=== PATIENT | male | born 1935 | race Caucasian/White ===

== ENCOUNTER 2019-04-22 10:24 | Emergency (ER) | payer MEDICARE, SELFPAY ==
[2019-04-22 10:32] VITALS: BP 192/104; PULSE 100; RESP 13; TEMP 36.2; O2SAT 96
--- NOTE | 2019-04-22 10:43 | PC.NURSE ---
Patient reports gradual onset of double vision yesterday. Vision is fine if he closes one eye, but double with both eyes open. Patient denies headache, denies any other changes. Denies numbness or tingling
--- NOTE | 2019-04-22 10:45 | ED_ITS ---
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 He says his if he closes 1 eye he sees normally it does not matter which eye he closes. He has no blackening or loss of vision. He has no numbness tingling or weakness. No speech difficulty. He denies chest pain her palpitations. No prior history of CVA or TIA. But is worried that he might be having a stroke. He has no dizziness lightheadedness or syncope. Review of Systems Review of Systems ROS Unobtainable: All systems reviewed & are unremarkable except as noted in HPI and below Constitutional Constitutional: Denies chills, Denies fever(s), Denies lethargy and Denies weakness Eyes Eyes: Denies blind spots, Denies blurry vision, Denies exophthalmos, Denies change in vision and Reports diplopia ENT Ears, Nose, Mouth, and Throat: Denies change in voice, Denies vertigo, Denies dizziness, Denies neck pain and Denies sore throat Cardiovascular Cardiovascular: Denies dyspnea and Denies dyspnea on exertion Respiratory Respiratory: Denies cough, Denies dyspnea, Denies dyspnea on exertion and Denies wheezing Gastrointestinal Gastrointestinal: Denies abdominal pain, Denies change in bowel habits, Denies diarrhea, Denies nausea and Denies vomiting Genitourinary Genitourinary: Denies hematuria, Denies flank pain, Denies urinary incontinence and Denies urinary urgency Musculoskeletal Musculoskeletal: Denies abnormal gait and Denies neck pain Integumentary/Breasts Skin/Breast: Denies pruritus, Denies erythema, Denies rash and Denies wounds Neurologic Neurologic: Denies abnormal gait, Denies confusion, Denies vertigo, Denies dizziness, Denies lack of coordination, Denies focal weakness and Denies weaknes s Psychiatric Psychiatric: Denies confusion Allergic/Immunologic Allergic/Immunologic: Denies wheezing Patient History Medical History Hyperlipidemia (Acute) Social History Smoking Status: Never smoker alcohol intake frequency: 3 or more drinks per day Exam Initial Vital Signs Initial Vital Signs: Vital Signs Temperature 97.2 F L 04/22/19 10:32 Pulse Rate 100 H 04/22/19 10:32 Respiratory Rate 13 04/22/19 10:32 Blood Pressure 192/104 H 04/22/19 10:32 Pulse Oximetry 96 04/22/19 10:32 GENERAL: Alert well-appearing elderly male HEENT: Head atraumatic,EOMI, pupils reactive, face symmetric, moist mucous membranes EYES: EOMI, vision clears when 1 eye is covered. no loss of peripheral vision it is equal on both sides CARDIOVASCULAR: Regular rate and rhythm without murmurs, rubs or gallops. RESPIRATORY: Breath sounds equal bilaterally, no wheezes rales or rhonchi. ABDOMEN: Soft, nontender. Normoactive bowel sounds all 4 quadrants. No guardi ng or rebound. EXTREMITIES: Normal range of motion, no clubbing or edema. Neurovascularly intact NEUROLOGICAL: Alert and oriented x4.Normal gait and speech. Cranial nerves II through XII grossly intact. Good [id number], good [id number], strength equal bilaterally, no dysarthria or aphasia, sensation in tact to soft touch bilaterally, no visual changes, no facial droop SKIN: Warm, dry, no laceration, no petechiae, no rashes or lesions. Scores NIH Stroke Scale Level of Conciousness: Alert, keenly responsive Ask month/age: Answers both questions correctly. Open/close eyes, close hand: Performs both tasks correctly Best gaze horizontal: Normal Visual paulino: No visual loss Facial palsy: Normal symetrical movement Left arm drift: No drift for full 10 sec Right arm drift: No drift for full 10 sec Left leg drift: No drift for full 10 sec Right leg drift: No drift for full 10 sec Limb ataxia: Absent Sensory on face/arms/legs: Normal, no sensory loss Best language: No aphasia, normal Dysarthria: Normal Extinction or inattention: No abnormality Total NIH Stroke scale score: 0 Course Orders Ordered: ED Orders 04/22/19 10:40 Complete Blood Count AUTO DIFF Stat Comprehensive Metabolic Panel Stat Partial Thromboplastin Time Stat Prothrombin Time INR Stat Troponin I Stat 04/22/19 11:09 CT head/brain wo con Stat Urine Drug Screen, Rapid Stat EKG-12 Lead Stat Discontinued Medications Sodium Chloride (Normal Saline 0.9%) 1,000 mls @ 1,000 mls/hr IV BOLUS ONE Stop: 04/22/19 12:08 Last Infusion: 04/22/19 12:56 Dose: 0 mls/hr Documented by: Admin: 04/22/19 12:00 Dose: 1,000 mls/hr Documented by: RA Vital Signs Vital signs: Vital Signs - 8 hr 04/22/19 10:32 04/22/19 11:58 04/22/19 12:51 Temperature 97.2 F L Pulse Rate 100 H 82 91 H Respiratory Rate 13 Blood Pressure 192/104 H Blood Pressure [Right Arm] 157/90 H 171/93 H Pulse Oximetry 96 97 98 MDM - Eye Problem Lab Data Attestation: I reviewed the patient's lab results. Result diagrams: 04/22/19 10:40 04/22/19 10:40 Labs: Lab Results 04/22/19 04/22/19 04/22/19 Range/Units 10:40 10:40 10:40 WBC 6.2 (4.5-11.0) X10^3/uL RBC 4.33 L (4.5-5.9) X10^6/uL Hgb 14.6 (13.5-17.5) g/dL Hct 43.2 (41-53) % MCV 99.8 (80-100) fL MCH 33.8 (26-34) PG MCHC 33.9 (30-36) % RDW 13.0 (11.6-14.8) % Plt Count 206 (150-400) X10^3/uL Neut % (Auto) 63.8 (50-75) % Lymph % (Auto) 18.2 L (25-40) % [place] % (Auto) 8.4 (3-14) % Eos % (Auto) 6.4 H (2-4) % Baso % (Auto) 3.2 H (0-2) % Neut # (Auto) 4000 (6878-8979) /uL Lymph # (Auto) 1100 (4224-8747) /uL [place] # (Auto) 500 (0-900) /uL Eos # (Auto) 400 (0-450) /uL Baso # (Auto) 200 H (0-100) /uL PT 11.7 (10.1-12.7) SECONDS INR 1.0 (0.9-1.3) APTT 30 (26.4-36.2) SECONDS Sodium 132 L (137-145) mmol/L Potassium 4.1 (3.4-5.1) mmol/L Chloride 99 (98-107) mmol/L Carbon Dioxide 25 (22-32) mmol/L BUN 13 (9-20) mg/dL Creatinine 0.80 (0.66-1.25) mg/dL Estimated GFR > 60.0 (>60) mL/min BUN/Creatinine Ratio 16.3 (6-22) Glucose 157 H (80-110) mg/dL Calcium 9.0 (8.4-10.2) mg/dL Total Bilirubin 0.8 (0.2-1.3) mg/dL AST 41 (17-59) IU/L ALT 22 (<50) IU/L Alkaline Phosphatase 57 (38-126) U/L Troponin I < 0.012 (0.01-0.034) ng/mL Total Protein 7.6 (6.3-8.2) g/dL Albumin 4.4 (3.5-5.0) g/dL Globulin 3.2 (1.7-4.1) g/dL Albumin/Globulin Ratio 1.4 (1.0-2.8) Urine Dip Bedside Urine Glucose Negative Bedside Urine Bilirubin - Negative Bedside Urine Ketone - Negative Urine Specific [place] 1.010 Bedside Urine Occult Blood - Negative Bedside Urine pH 6.5 Bedside Urine Protein +/- 15 Bedside Urine Urobilinogen - Negative Bedside Urine Nitrite - Negative Bedside Urine Leukocytes - Negative Esterase Imaging Data CT scan - head: Radiologist's impression: PROCEDURE: CT HEAD/BRAIN WO CON INDICATIONS: double vision TECHNIQUE: Noncontrast 4.5 mm thick angled axial sections acquired from the foramen magnum to the vertex, with coronal and sagittal reformats. For radiation dose reduction, the following was used: automated exposure control, adjustment of mA and/or kV according to patient size. COMPARISON: None. FINDINGS: Image quality: Excellent. CSF spaces: Basal cisterns are patent. No extra-axial fluid collections. The ventricles are symmetric in size and shape. Brain: No intracranial bleeds or masses. There is cerebral volume loss for age, with resultant ventricular and sulcal prominence. There are periventricular and deep white matter chronic small vessel ischemic changes. There is intracranial internal carotid artery atherosclerosis. Skull and face: Calvarium and visualized facial bones appear intact, without suspicious lesions. Sinuses: There is a mild mucous retention cyst seen involving the lateral right frontal sinus. Mild mucosal thickening is seen within the ethmoid air cells. No abnormal fluid is seen within the mastoid air cells. IMPRESSION: No imaging explanation is found for this patient's presenting symptoms. If it would be helpful for clinical management decision making, please consider a dedicated orbits protocol MRI (without and with contrast) for further evaluation (assuming that there is no contraindication). Note is made of age-appropriate brain parenchymal volume loss and chronic small vessel ischemic changes. Dictated by: Flaco Monk M.D. on 04/22/2019 at 11:00 ECG Data Attestation: I personally reviewed and interpreted this ECG as follows: Prior ECG tracings: available for review Interpretation: Normal sinus rhythm a rate 104 for interval 70 Q DC [address] elevations depressions T-wave inversion noted in lead 3 only no prior EKGs to compare. [facility] Narrative Medical decision making narrative: The patient's signs and symptoms are not consistent with CVA or TIA. He is certainly out of the window for tPA, symptoms started yesterday. 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 At this time I recommend he follow up there for the double vision. He has no peripheral vision loss no signs of retinal detachment. No cranial nerve deficit that is appreci ated. I discussed all findings with the patient and , Education has been performed regarding treatment plan, diagnosis, warning signs and symptoms and all concerns have been addressed. Verbally agree with and understood all of the above. Discharge Plan Departure Patient Disposition: Home Clinical Impression: Double vision Discharge Date/Time: 04/22/19 13:13 Instructions: DI for Double Vision Activity Restrictions/Additional Instructions: *You have been diagnosed with double vision *What to do: At this time no signs or symptoms of stroke is blood work and head CT are reassuring. However I strongly recommend that you follow up with your pipeliner call 1st thing Wednesday morning *Continue to take medications as directed Aspirin 81 mg once a day *Follow up with your primary care provider in 2-3 days *Return to ER if you should have weakness, facial drooping, difficulty speaking, confusion, blackening or loss of vision or any new, worsening or concerning symptoms
--- NOTE | 2019-04-22 11:09 | DI.CT.S_ITS ---
PROCEDURE: CT HEAD/BRAIN WO CON INDICATIONS: double vision TECHNIQUE: Noncontrast 4.5 mm thick angled axial sections acquired from the foramen magnum to the vertex, with coronal and sagittal reformats. For radiation dose reduction, the following was used: automated exposure control, adjustment of mA and/or kV according to patient size. COMPARISON: None. FINDINGS: Image quality: Excellent. CSF spaces: Basal cisterns are patent. No extra-axial fluid collections. The ventricles are symmetric in size and shape. Brain: No intracranial bleeds or masses. There is cerebral volume loss for age, with resultant ventricular and sulcal prominence. There are periventricular and deep white matter chronic small vessel ischemic changes. There is intracranial internal carotid artery atherosclerosis. Skull and face: Calvarium and visualized facial bones appear intact, without suspicious lesions. Sinuses: There is a mild mucous retention cyst seen involving the lateral right frontal sinus. Mild mucosal thickening is seen within the ethmoid air cells. No abnormal fluid is seen within the mastoid air cells. IMPRESSION: No imaging explanation is found for this patient's presenting symptoms. If it would be helpful for clinical management decision making, please consider a dedicated orbits protocol MRI (without and with contrast) for further evaluation (assuming that there is no contraindication). Note is made of age-appropriate brain parenchymal volume loss and chronic small vessel ischemic changes. Dictated by: Flaco Monk M.D. on 04/22/2019 at 11:00 Approved by: Flaco Monk M.D. on 04/22/2019 at 11:02
[2019-04-22 11:22] LABS: Prothrombin Time 11.7 SECONDS (10.1-12.7)
[2019-04-22 11:25] LABS: PTT Partial Thromboplastin Tim 30 SECONDS (26.4-36.2)
[2019-04-22 11:26] LABS: Alanine Aminotransferase 22 IU/L (<50); Albumin 4.4 g/dL (3.5-5.0); Albumin Globulin Ratio 1.4 (1.0-2.8); Alkaline Phosphatase 57 U/L (38-126); Aspartate Aminotransferase 41 IU/L (17-59); BUN Creatinine Ratio 16.3 (6-22); Bilirubin Total 0.8 mg/dL (0.2-1.3); Blood Urea Nitrogen 13 mg/dL (9-20); Carbon Dioxide 25 mmol/L (22-32); Chloride 99 mmol/L (98-107); Estimated Glomerular Filt Rate > 60.0 mL/min (>60); Globulin 3.2 g/dL (1.7-4.1); Glucose 157 mg/dL (80-110); HEMOLYSIS 26 (0-50); Potassium 4.1 mmol/L (3.4-5.1); Sodium 132 mmol/L (137-145); Total Protein 7.6 g/dL (6.3-8.2)
[2019-04-22 11:36] LABS: Add Manual Diff / Slide Review NO; Basophils Absolute Auto 200 /uL (0-100); Basophils Percent Auto 3.2 % (0-2); Eosinophils Absolute Auto 400 /uL (0-450); Eosinophils Percent Auto 6.4 % (2-4); Hematocrit 43.2 % (41-53); Hemoglobin 14.6 g/dL (13.5-17.5); Lymphocytes Absolute Auto 1100 /uL (1100-4500); Lymphocytes Percent Auto 18.2 % (25-40); Mean Corpuscular HGB Conc 33.9 % (30-36); Mean Corpuscular Hemoglobin 33.8 PG (26-34); Mean Corpuscular Volume 99.8 fL (80-100); Monocytes Absolute Auto 500 /uL (0-900); Monocytes Percent Auto 8.4 % (3-14); Neutrophils Absolute Auto 4000 /uL (1500-7000); Neutrophils Percent Auto 63.8 % (50-75); Platelet Count 206 X10^3/uL (150-400); Red Blood Cell Count 4.33 X10^6/uL (4.5-5.9); White Blood Cell Count 6.2 X10^3/uL (4.5-11.0)
[2019-04-22 11:37] LABS: Troponin I < 0.012 ng/mL (0.01-0.034)
[2019-04-22 11:58] VITALS: BP 157/90; PULSE 82; O2SAT 97
[2019-04-22] MEDS: SODIUM CHLORIDE 0.9% 1,000 ML 1000 ML IV (12:00)
[2019-04-22 12:51] VITALS: BP 171/93; PULSE 91; O2SAT 98
== END 2019-04-22 13:13 | disposition home or self-care (01) ==
PROVIDERS: Emergency Provider Emergency Medicine
DX: H53.2 Diplopia (principal); E78.5 Hyperlipidemia, unspecified
CPT/HCPCS: 36415; 70450; 80053; 81003; 84484; 85025; 85610; 85730; 93005; 99283; 99285

== ENCOUNTER 2022-06-27 22:40 | Inpatient (IN) | payer MEDICARE, SELFPAY ==
[2022-06-27 22:57] VITALS: BP 117/78; PULSE 78; RESP 22; TEMP 36.4; O2SAT 97; BMI 25.8
--- NOTE | 2022-06-27 22:57 | DI.RAD.S_ITS ---
PROCEDURE: XR CHEST 1V INDICATIONS: dyspnea TECHNIQUE: One view of the chest was acquired. COMPARISON: None. FINDINGS: Surgical changes and devices: None. Lungs and pleura: Lungs are abnormal with a chronic appearing interstitial prominence pattern with superimposed alveolar consolidation at the left mid and lower lung. No pleural effusions or pneumothorax. Mediastinum: Mediastinal contours appear normal. Heart size is normal. Bones and chest wall: No suspicious bony lesions. Overlying soft tissues appear unremarkable. IMPRESSION: Left mid and lower lung pneumonia pattern, superimposed upon a chronic mild interstitial prominence that might reflect prior smoking history. Dictated by: Omero Marie M.D. on 06/27/2022 at 23:12 Approved by: Omero Marie M.D. on 06/27/2022 at 23:13
[2022-06-27 23:04] LABS: Add Manual Diff / Slide Review NO; Basophils Absolute Auto 100 /uL (0-100); Basophils Percent Auto 1.3 % (0-2); Eosinophils Absolute Auto 100 /uL (0-450); Hemoglobin 14.6 g/dL (13.5-17.5); Lymphocytes Absolute Auto 900 /uL (1100-4500); Lymphocytes Percent Auto 11.3 % (25-40); Mean Corpuscular HGB Conc 34.8 % (30-36); Mean Corpuscular Hemoglobin 35.8 PG (26-34); Monocytes Absolute Auto 1100 /uL (0-900); Monocytes Percent Auto 13.7 % (3-14); Neutrophils Absolute Auto 5700 /uL (1500-7000); Neutrophils Percent Auto 72.7 % (50-75); Platelet Count 152 X10^3/uL (150-400); Red Blood Cell Count 4.08 X10^6/uL (4.5-5.9); Red Cell Distribution Width 14.3 % (11.6-14.8); White Blood Cell Count 7.9 X10^3/uL (4.5-11.0)
--- NOTE | 2022-06-27 23:43 | ED_ITS ---
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 Boyle # (Auto) (0-900) /uL Eos # (Auto) (0-450) /uL Baso # (Auto) (0-100) /uL Sodium 119 L* (137-145) mmol/L Potassium 4.5 (3.4-5.1) mmol/L Chloride 80 L (98-107) mmol/L Carbon Dioxide 27 (22-32) mmol/L BUN 37 H (9-20) mg/dL Creatinine 1.43 H (0.66-1.25) mg/dL Estimated GFR 47 L (>60) mL/min BUN/Creatinine Ratio 25.9 H (6-22) Glucose 84 (80-110) mg/dL Calcium 7.9 L (8.4-10.2) mg/dL Total Bilirubin (0.2-1.3) mg/dL AST (17-59) IU/L ALT (<50) IU/L Alkaline Phosphatase (38-126) U/L Troponin I (0.01-0.034) ng/mL NT-Pro-B Natriuret Pep (<450) pg/mL Total Protein (6.3-8.2) g/dL Albumin (3.5-5.0) g/dL Globulin (1.7-4.1) g/dL Albumin/Globulin Ratio (1.0-2.8) TSH (0.47-4.68) uIU/mL Thyroxine (T4) (5.5-11.0) ug/dL Ur Random Sodium (30-90) mmol/L Urine Creatinine mg/dL SARS-CoV-2 (PCR) (Negative) Influenza A (RT-PCR) (NEGATIVE) Influenza B (RT-PCR) (NEGATIVE) RSV (PCR) (Negative) Urine Dip Bedside Urine Glucose Negative Bedside Urine Bilirubin - Negative Bedside Urine Ketone - Negative Urine Specific Pfeifer 1.020 Bedside Urine Occult Blood - Negative Bedside Urine pH 6.0 Bedside Urine Protein - Negative Bedside Urine Urobilinogen - Negative Bedside Urine Nitrite - Negative Bedside Urine Leukocytes - Negative Esterase Point of care testing: Urine Dip Bedside Urine Glucose Negative Bedside Urine Bilirubin - Negative Bedside Urine Ketone - Negative Urine Specific Pfeifer 1.020 Bedside Urine Occult Blood - Negative Bedside Urine pH 6.0 Bedside Urine Protein - Negative Bedside Urine Urobilinogen - Negative Bedside Urine Nitrite - Negative Bedside Urine Leukocytes - Negative Esterase Imaging Data MRCP: Radiologist's Impression: [address] [address] Magnetic Resonance Report Signed Patient: Michael Woodson MR#: [id number] : 1935 Acct:[id number] Age/Sex: 87 / M Date of Service: 06/28/22 Loc: ED Accession Number: [id number] ?? Procedure: MR abdomen wo/w con Ordering Provider: Joanna Ceja MD PROCEDURE:? MR ABDOMEN WO/W CON ? INDICATIONS:? elevated LFTs.? ? CBD stone ? TECHNIQUE:? Coronal HASTE, axial 2D FLASH in- and [id number]; axial breath-hold T2 FSE.? Dynamic axial VIBE during the administration of contrast; post-contrast coronal VIBE or 2D FLASH with fat saturation from the hepatic dome to the iliac crests.? Optional diffusion weighted imaging and ADC may be performed.? ? COMPARISON:? [facility], CT, CT ABDOMEN PELVIS W CON, 06/28/2022, 0:55. ? FINDINGS:? Image quality:? Study is significantly limited by motion artifact.? Patient was unable to suspend respirations ? Lung bases:? Small right pleural effusion. ? Solid organs:? Gallbladder is grossly unremarkable without filling defects.? Limited sequences of the common bile duct are also likewise unremarkable without distension or filling defects.? There is a suggestion pericholecystic fluid.? Liver is normal in size and enhancement.? Biliary system is non dilated.? Pancreas is normal in morphology.? Spleen is normal in size and enhancement.? No adrenal nodules.? Both kidneys demonstrate normal size and enhancement, without hydronephrosis.? ? Nodes and vessels:? No retroperitoneal or mesenteric adenopathy by size criteria.? Aorta and inferior vena cava are normal in size.? ? Bowel and peritoneum:? Unenhanced bowel loops are normal in caliber.? No free fluid.? ? Bones and soft tissues:? No ventral hernias.? Bone marrow is normal in overall signal.? IMPRESSION:? ? 1. Limited by motion artifact and patient inability to suspend respiration.? ? 2. No MR evidence of cholelithiasis or choledocholithiasis, within the limits of the exam. ? 3. Possible pericholecystic edema.? Consider follow-up ultrasound evaluation for further evaluation.? Approved by: Wes Henry M.D. on 06/28/2022 at 8:51 MDM Narrative Medical decision making narrative: CC: Episodes of acute weakness lasting for a couple of minutes each, daily for the last 3 days. This is a new problem, acute with uncertain prognosis and significant potential for systemic involvement Complicating co-morbidities: Age, recently diagnosed paroxysmal atrial fibrillation Corroborating data: Data collected from: patient, Medical records reviewed: Outside records are not available. Patient states he did have an echocardiogram in May of this year [facility], records for that not available. Differential considered: Paroxysmal atrial fibrillation with rapid rate and worsening congestive heart failure, acute coronary syndrome, worsened cardiomyopathy, viral etiology, stroke/tia, other cardiac arrhythmia, Exam documented above, pertinent findings include: Alert and appropriate, JVD and lower extremity edema of the minimal pulmonary findings Lab Test results independently reviewed as above. Pertinent findings: CBC shows no leukocytosis or anemia does have mild elevation of the MCV. Chemistries: Sodium is dramatically low at 117. Potassium is unremarkable creatinine elevated at 1.48 which is up from his baseline of 0.8. Significant liver abnormalities including a bilirubin at 2.9, AST at 7:20 a.m., ALT at 4:13 a.m. alkaline phosphatase at 153. Troponin is unremarkable Mildly elevated proBNP 1780 TSH is significantly elevated at 21.8. Will check a T4 Independently reviewed EKG as above Imaging studies independently reviewed: Slightly thickened gallbladder wall with question of acute cholecystitis no gallstones are seen and no significantly dilated hepatic ducts her appreciated. Consultations: Treatments: 500 cc bolus, free water restriction, Re-evaluation: 2:20 a.m., he is resting comfortably, afebrile, review findings and anticipated stay in the emergency department until we are better able to sort through some of the liver abnormalities. Discussion: Hyponatremia with acute kidney injury, obstructive liver enzyme patterns and significantly elevated TSH are all noted. Chest x-ray is interpreted as possible pneumonia however clinically that does not fit. He will be given a 500c bolus of normal saline and order CT scan of the abdomen given the elevated LFTs as a new finding. CT scan suggests possible acute cholecystitis without dilated biliary ducts which does not correlate at all to his completely benign abdominal exam. At this time without any evidence of infection antibiotics are not initiated. Will need admission however if he does have a common duct stone to explain the elevated enzymes will need transfer to a facility where ERCP can be done. We will need an MRCP prior to admission to this hospital. We will plan on continued care in the emergency department this evening with lab work repeated in the morning and see if we can arrange for MRCP later today Dr lópez; received turned over. Review patient's history and physical workup up to this point. The MRCP does not show signs of acute cholecystitis/choledocholithiasis. The patient has been tolerating oral intake of non free water liquids. I did discuss the case with Dr. Ratliff who asked for urine studies to be obtained and then Lasix given. There was some concern with the Lasix that potentially his blood pressure would drop and that he would need blood pressure support during diuresis. Lasix was administered the patient did not become hypotensive. Repeat chemistry ordered which shows sodium now 119. Patient still requires admission to the hospital and I did discuss this with him and his . We will admit for further evaluation and treatment. Discharge Plan Departure Patient Disposition: Admitted As Inpatient Clinical Impression: Acute hyponatremia, Paroxysmal A-fib, Elevated liver enzymes CHF (congestive heart failure) Qualifiers: Heart failure type: unspecified Heart failure chronicity: acute on chronic Qualified Code(s): I50.9 - Heart failure, unspecified Hypothyroid Qualifiers: Hypothyroidism type: unspecified Qualified Code(s): E03.9 - Hypothyroidism, unspecified Admit Date/Time: 06/28/22 12:56 Admit Provider: Quan Ratliff
[2022-06-27 23:54] LABS: Alanine Aminotransferase 413 IU/L (<50); Albumin 3.9 g/dL (3.5-5.0); Albumin Globulin Ratio 1.3 (1.0-2.8); Alkaline Phosphatase 153 U/L (38-126); Bilirubin Total 2.9 mg/dL (0.2-1.3); Blood Urea Nitrogen 37 mg/dL (9-20); Calcium 8.1 mg/dL (8.4-10.2); Carbon Dioxide 23 mmol/L (22-32); Estimated Glomerular Filt Rate 46 mL/min (>60); Globulin 3.1 g/dL (1.7-4.1); Glucose 97 mg/dL (80-110); Potassium 5.1 mmol/L (3.4-5.1)
[2022-06-28] VITALS (22 sets, daily range): BP systolic 100–130; BP diastolic 60–80; PULSE 66–84; RESP 16–26; TEMP 35.7–36.6; O2SAT 91–98; BMI 25.8
[2022-06-28] LABS: Aspartate Aminotransferase 720 IU/L (17-59); Chloride 79 mmol/L (98-107); HEMOLYSIS 38 (0-50); Sodium 117 mmol/L (137-145)
[2022-06-28 00:06] LABS: NT-proBNP (BNP-Adult 18+) 1780 pg/mL (<450)
[2022-06-28 00:27] LABS: Thyroid Stimulating Hormone 21.8 uIU/mL (0.47-4.68)
--- NOTE | 2022-06-28 00:48 | DI.CT.S_ITS ---
PROCEDURE: CT ABDOMEN PELVIS W CON INDICATIONS: elevated LFTs, obstructive pattern TECHNIQUE: After the administration of intravenous contrast, axial sections acquired from the lung bases to the pubic symphysis. Coronal and sagittal reformats were performed. For radiation dose reduction, the following was used: automated exposure control, adjustment of mA and/or kV according to patient size. COMPARISON: None. FINDINGS: Image quality: Excellent. Lung bases: COPD appears present. Heart: Cardiac dimensions are mildly enlarged.. ABDOMEN: Liver: Unremarkable. Gallbladder: The gallbladder appears wall thickened with mild adjacent edema. Calcified gallstones are not seen within the gallbladder lumen but noncalcified gallstones frequently are not accurately detected by CT scanning. Biliary ducts: Unremarkable. Pancreas: Unremarkable. Spleen: Unremarkable. Adrenal Glands: Unremarkable. Kidneys and Ureters: Unremarkable. Stomach and Bowel: Stomach, small bowel loops, and colon are unremarkable. Peritoneum: No abnormal intraperitoneal fluid. No free air. Ventral Wall: No hernias but note is made of a generalized mild anasarca pattern.. Abdominal Nodes: No retroperitoneal or mesenteric adenopathy by size criteria. Vessels: Aorta and inferior vena cava are normal in size. PELVIS: Pelvic Organs: Unremarkable. Bladder: Unremarkable. Pelvic Nodes: No enlarged lymph nodes. Miscellaneous: No hernias are seen. Generalized mild anasarca pattern. Bones: Unremarkable. IMPRESSION: The liver appears free of obstruction or intrahepatic biliary distension. The gallbladder, however, appears wall thickened and indistinctly marginated with mild adjacent edema. This may reflect acute cholecystitis or chronic cholecystitis. Follow-up by gallbladder ultrasound likely is warranted in this clinical circumstance to more accurately assess the gallbladder itself. As noted above, noncalcified gallstones are frequently not accurately detected by CT scanning. Mild cardiomegaly, severe COPD suspected. Dictated by: Omero Marie M.D. on 06/28/2022 at 1:56 Approved by: Omero Marie M.D. on 06/28/2022 at 1:59
[2022-06-28 00:53] LABS: Influenza A - CEPHEID Flu A NEGATIVE (NEGATIVE); Influenza B - CEPHEID Flu B NEGATIVE (NEGATIVE); Respiratory Syncytial Virus Negative (Negative)
[2022-06-28 00:55] LABS: COVID-19 CEPHEID 4-PLEX PCR Negative (Negative)
[2022-06-28] MEDS: SODIUM CHLORIDE 0.9% 500 ML IV (01:12)
[2022-06-28 01:19] LABS: T4 Total Thyroxine 4.12 ug/dL (5.5-11.0)
[2022-06-28] MEDS: LORazepam 0.5 MG TABLET 1 MG PO (02:50)
[2022-06-28 06:35] LABS: Hematocrit 43.7 % (41-53); Mean Corpuscular HGB Conc 34.3 % (30-36); Mean Corpuscular Hemoglobin 35.3 PG (26-34); Mean Corpuscular Volume 102.7 fL (80-100); Platelet Count 144 X10^3/uL (150-400); Red Blood Cell Count 4.26 X10^6/uL (4.5-5.9); Red Cell Distribution Width 14.6 % (11.6-14.8); White Blood Cell Count 8.3 X10^3/uL (4.5-11.0)
[2022-06-28 06:48] LABS: Alanine Aminotransferase 452 IU/L (<50); Albumin 3.8 g/dL (3.5-5.0); Albumin Globulin Ratio 1.3 (1.0-2.8); Alkaline Phosphatase 161 U/L (38-126); BUN Creatinine Ratio 24.1 (6-22); Blood Urea Nitrogen 35 mg/dL (9-20); Calcium 8.1 mg/dL (8.4-10.2); Carbon Dioxide 23 mmol/L (22-32); Chloride 82 mmol/L (98-107); Estimated Glomerular Filt Rate 47 mL/min (>60); Glucose 89 mg/dL (80-110); HEMOLYSIS < 15 (0-50); Potassium 5.2 mmol/L (3.4-5.1); Total Protein 6.8 g/dL (6.3-8.2)
[2022-06-28 06:56] LABS: Aspartate Aminotransferase 802 IU/L (17-59)
[2022-06-28 06:57] LABS: Sodium 117 mmol/L (137-145)
--- NOTE | 2022-06-28 08:29 | DI.MRI.S_ITS ---
PROCEDURE: MR ABDOMEN WO/W CON INDICATIONS: elevated LFTs. ? CBD stone TECHNIQUE: Coronal HASTE, axial 2D FLASH in- and [id number]; axial breath-hold T2 FSE. Dynamic axial VIBE during the administration of contrast; post-contrast coronal VIBE or 2D FLASH with fat saturation from the hepatic dome to the iliac crests. Optional diffusion weighted imaging and ADC may be performed. COMPARISON: [facility], CT, CT ABDOMEN PELVIS W CON, 06/28/2022, 0:55. FINDINGS: Image quality: Study is significantly limited by motion artifact. Patient was unable to suspend respirations Lung bases: Small right pleural effusion. Solid organs: Gallbladder is grossly unremarkable without filling defects. Limited sequences of the common bile duct are also likewise unremarkable without distension or filling defects. There is a suggestion pericholecystic fluid. Liver is normal in size and enhancement. Biliary system is non dilated. Pancreas is normal in morphology. Spleen is normal in size and enhancement. No adrenal nodules. Both kidneys demonstrate normal size and enhancement, without hydronephrosis. Nodes and vessels: No retroperitoneal or mesenteric adenopathy by size criteria. Aorta and inferior vena cava are normal in size. Bowel and peritoneum: Unenhanced bowel loops are normal in caliber. No free fluid. Bones and soft tissues: No ventral hernias. Bone marrow is normal in overall signal. IMPRESSION: 1. Limited by motion artifact and patient inability to suspend respiration. 2. No MR evidence of cholelithiasis or choledocholithiasis, within the limits of the exam. 3. Possible pericholecystic edema. Consider follow-up ultrasound evaluation for further evaluation. Approved by: Wes Henry M.D. on 06/28/2022 at 8:51
--- NOTE | 2022-06-28 10:11 | PC.NURSE ---
pt given urinal to measure accurate output, urinal had 75 ml in but pt reports i spilled 2/3 of it documented spillage as unmeasured void
--- NOTE | 2022-06-28 10:39 | PC.NURSE ---
pt drinking gatorade, instructed pt we will need urine sample for additional testing. pt reports he will try to get sample.
[2022-06-28] MEDS: FUROSEMIDE 40 MG/4 ML VIAL IV (11:13)
[2022-06-28 11:40] LABS: Creatinine Urine Random 71.7 mg/dL; Sodium Urine Random < 5 mmol/L (30-90)
[2022-06-28 12:53] LABS: BUN Creatinine Ratio 25.9 (6-22); Blood Urea Nitrogen 37 mg/dL (9-20); Calcium 7.9 mg/dL (8.4-10.2); Carbon Dioxide 27 mmol/L (22-32); Chloride 80 mmol/L (98-107); Estimated Glomerular Filt Rate 47 mL/min (>60); Glucose 84 mg/dL (80-110); HEMOLYSIS < 15 (0-50); Potassium 4.5 mmol/L (3.4-5.1)
[2022-06-28 12:55] LABS: Sodium 119 mmol/L (137-145)
[2022-06-28 14:36] LABS: Alanine Aminotransferase 464 IU/L (<50); Albumin 3.7 g/dL (3.5-5.0); Albumin Globulin Ratio 1.2 (1.0-2.8); Alkaline Phosphatase 147 U/L (38-126); BUN Creatinine Ratio 25.3 (6-22); Bilirubin Total 2.7 mg/dL (0.2-1.3); Blood Urea Nitrogen 37 mg/dL (9-20); Carbon Dioxide 25 mmol/L (22-32); Chloride 80 mmol/L (98-107); Estimated Glomerular Filt Rate 46 mL/min (>60); Glucose 97 mg/dL (80-110); Potassium 4.9 mmol/L (3.4-5.1); Total Protein 6.7 g/dL (6.3-8.2)
[2022-06-28 14:42] LABS: HEMOLYSIS 21 (0-50)
[2022-06-28 14:48] LABS: Aspartate Aminotransferase 812 IU/L (17-59)
[2022-06-28 14:51] LABS: Sodium 118 mmol/L (137-145)
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
--- NOTE | 2022-06-28 15:47 | DI.ECHO.S_ITS ---
[facility] +---------+ : : [address] : [place] : : : : [id number] : : : : Phone: [phone]+ Echocardiogram Report + + :Name: GEORGE MASCORRO Study Date: 06/29/2022 Height: 70 in : :[facility] ReadingLocation: Weight: 180 lb : : Gender: Male BSA: 2.0 m2 : :: 1935 Age: 87 yrs BP: 128/102 mmHg: :Reason For Study: CONGESTIVE HEART FAILURE, ATRIAL : :FIBRILLATION : :Ordering Physician: BARBY, : :SAMUEL COVINGTON Performed By: Tia Ramos : :Referring: SAMUEL DIOR : + + Interpretation Summary The patient was in atrial fibrillation with heart rates between 85-105 bpm during the exam. Normal left ventricle size with ejection fraction 55-60%. Moderately dilated right ventricle with normal right ventricular systolic function. Severe biatrial enlargement. The aortic valve is mildly calcified. Mild to moderate aortic regurgitation. Moderate mitral annular calcification. Moderate mitral regurgitation. The tricuspid annulus is dilated. Severe tricuspid regurgitation. The right ventricular systolic pressure is estimated to be at least 46 mmHg based on an estimated right atrial pressure of 15 mm Hg. Procedure: A two-dimensional transthoracic echocardiogram with color flow and Doppler was performed. The study quality was technically adequate. There is no prior echocardiogram noted for this patient. The patient was in atrial fibrillation with heart rates between 85-105 bpm during the exam. Left Ventricle: The left ventricle is normal in size. There is normal left ventricular wall thickness. The ejection fraction is estimated to be 55-60%. There are no focal wall motion abnormalities. Diastolic function could not be accurately assessed due to atrial fibrillation. Right Ventricle: The right ventricle is moderately dilated. The right ventricular systolic function is normal. Atria: There is severe biatrial enlargement. There is no Doppler evidence for an interatrial shunt. Mitral Valve: There is moderate mitral annular calcification. The mitral valve leaflets are mildly calcified. There is moderate mitral regurgitation. Aortic Valve: The aortic valve is trileaflet. The aortic valve is mildly calcified. There is discrete nodular thickening of the left coronary cusp. There is no aortic valve stenosis. There is mild to moderate aortic regurgitation. Tricuspid Valve: The tricuspid annulus is dilated. There is severe tricuspid regurgitation. RVSP pressure likely underestimated due the severity of regurgitation. The right ventricular systolic pressure is estimated to be at least 46 mmHg based on an estimated right atrial pressure of 15 mm Hg. Pulmonic Valve: The pulmonic valve leaflets are thin and pliable; valve motion is normal. There is trace pulmonic regurgitation. Great Vessels: The aortic root is normal size. The dimensions of the ascending aorta are normal. The IVC is dilated (diameter is greater than 2.1 cm) and it collapses less than 50% with a sniff. This suggests a high right atrial pressure of 15 mm Hg. Pericardium/ Pleura There is a trace pericardial effusion that is circumferential. There is no pleural effusion. MMode/2D Measurements & Calculations LVIDd: 3.6 cm LVOT diam: 1.9 cm LVIDs: 2.8 cm Ao root diam: 3.6 cm FS: 23.6 % asc Aorta Diam: 3.6 cm IVSd: 1.00 cm Ao Arch Diam (Prox Trans): 3.7 cm LVPWd: 1.1 cm LV pabon. diameter/BSA (cm/m^2): 1.8 LV sys. diameter/BSA (cm/m^2): 1.4 LA A2 area: 34.0 cm2 RA long axis: 7.5 cm LA A4 area: 34.9 cm2 RA area: 34.8 cm2 LA length (vol): 7.3 cm RA vol: 137.3 ml LA vol: 138.5 ml RA : 68.8 ml/m2 LA vol index: 69.4 ml/m2 IVC diam: 3.2 cm RVD1 (basal): 4.9 cm RVD2 (mid): 3.8 cm TAPSE: 1.9 cm Doppler Measurements & Calculations Ao V2 max: 156.8 cm/sec LVOT Max John: 84.6 cm/sec Ao V2 mean: 115.4 cm/sec LV V1 max P.9 mmHg Ao max P.8 mmHg LV V1 VTI: 16.7 cm Ao mean P.8 mmHg FRANCISCO(I,D): 2.0 cm2 Ao V2 VTI: 24.1 cm FRANCISCO(V,D): 1.6 cm2 sev ratio: 0.69 FRANCISCO indexed to BSA (cm^2/m^2): 1.0 MV E max john: 141.8 cm/sec TR max john: 278.2 cm/sec MV A max john: 3.5 cm/sec TR max P.0 mmHg MV E/A: 40.1 PA V2 max: 65.2 cm/sec Med Peak E' John: 6.7 cm/sec PA V2 mean: 45.9 cm/sec E/E' med: 21.1 PA mean P.93 mmHg Lat Peak E' John: 10.1 cm/sec PA pr(Accel): 53.3 mmHg E/E' lat: 14.1 E/e' average: 17.6 MV dec time: 0.19 sec MVA(VTI): 1.5 cm2 MR ERO: 0.31 cm2 MV V2 mean: 95.5 cm/sec MR PISA: 3.7 cm2 MV mean P.4 mmHg MR flow rate: 159.6 cm3/sec MV V2 VTI: 32.3 cm MR PISA radius: 0.77 cm SV(LVOT): 48.4 ml Electronically signed by: Oneal Nascimento on Reading Physician:06/29/2022 04:11 PM
--- NOTE | 2022-06-28 15:51 | DI.US.S_ITS ---
PROCEDURE: US RENAL COMPLETE INDICATIONS: ACUTE KIDNEY INJURY TECHNIQUE: Real-time scanning was performed of the kidneys and bladder, with image documentation. COMPARISON: CT 06/28/2022. FINDINGS: Kidneys: Kidneys are mildly atrophic. Right kidney measures 9.0 cm long; left kidney measures 7.3 cm long. Right renal cortical thickness is within normal limits. Bladder: Pre-void bladder volume is 107 mL; the patient was unable to void. Bilateral ureteral jets not visualized, nonspecific in the absence of hydronephrosis. Miscellaneous: No free pelvic fluid. IMPRESSION: Mildly atrophic kidneys, otherwise unremarkable renal ultrasound. Dictated by: Corbin Sommers M.D. on 06/29/2022 at 8:26 Approved by: Corbin Sommers M.D. on 06/29/2022 at 8:30
[2022-06-28] MEDS: FUROSEMIDE 60 MG in SODIUM CHLORIDE 0.9% 50 ML 112 MG IV (18:42)
[2022-06-28] MEDS: LORazepam 1 MG TABLET PO (20:40)
[2022-06-28] MEDS: APIXABAN 5 MG TABLET PO (20:40)
[2022-06-28 22:40] LABS: Blood Urea Nitrogen 36 mg/dL (9-20); Calcium 7.8 mg/dL (8.4-10.2); Carbon Dioxide 23 mmol/L (22-32); Chloride 83 mmol/L (98-107); Estimated Glomerular Filt Rate 47 mL/min (>60); Glucose 93 mg/dL (80-110); HEMOLYSIS < 15 (0-50); Potassium 4.6 mmol/L (3.4-5.1)
[2022-06-28 22:47] LABS: Sodium 118 mmol/L (137-145)
[2022-06-28 22:52] LABS: Troponin I 0.024 ng/mL (0.01-0.034)
[2022-06-29] VITALS (10 sets, daily range): BP systolic 116–130; BP diastolic 64–102; PULSE 82–95; RESP 18–22; TEMP 35.9–36.3; O2SAT 95–98
[2022-06-29] MEDS: LEVOTHYROXINE 50 MCG TABLET PO (06:00)
[2022-06-29 06:06] LABS: Add Manual Diff / Slide Review NO; Basophils Absolute Auto 0 /uL (0-100); Basophils Percent Auto 0.5 % (0-2); Eosinophils Absolute Auto 200 /uL (0-450); Eosinophils Percent Auto 2.3 % (2-4); Hematocrit 42.8 % (41-53); Hemoglobin 14.8 g/dL (13.5-17.5); Lymphocytes Absolute Auto 1300 /uL (1100-4500); Lymphocytes Percent Auto 16.8 % (25-40); Mean Corpuscular HGB Conc 34.5 % (30-36); Mean Corpuscular Hemoglobin 35.5 PG (26-34); Mean Corpuscular Volume 102.8 fL (80-100); Monocytes Absolute Auto 1100 /uL (0-900); Monocytes Percent Auto 13.7 % (3-14); Neutrophils Absolute Auto 5200 /uL (1500-7000); Neutrophils Percent Auto 66.7 % (50-75); Platelet Count 93 X10^3/uL (150-400); Red Blood Cell Count 4.16 X10^6/uL (4.5-5.9); Red Cell Distribution Width 14.3 % (11.6-14.8); White Blood Cell Count 7.9 X10^3/uL (4.5-11.0)
[2022-06-29 06:17] LABS: Magnesium 2.1 mg/dL (1.6-2.3)
[2022-06-29 07:08] LABS: Hepatitis B Surface Antigen NEGATIVE s/c (NEGATIVE)
[2022-06-29 07:25] LABS: Hep C Virus Ab w/Reflex Quant NEGATIVE s/c (NEGATIVE)
[2022-06-29] MEDS: FUROSEMIDE 60 MG in SODIUM CHLORIDE 0.9% 50 ML 112 MG IV ×2 (09:00→17:58)
[2022-06-29] MEDS: APIXABAN 5 MG TABLET PO ×2 (09:05→20:34)
[2022-06-29 09:08] LABS: Alanine Aminotransferase 465 IU/L (<50); Albumin 3.6 g/dL (3.5-5.0); Albumin Globulin Ratio 1.2 (1.0-2.8); Alkaline Phosphatase 146 U/L (38-126); Bilirubin Total 3.4 mg/dL (0.2-1.3); Blood Urea Nitrogen 36 mg/dL (9-20); Calcium 7.9 mg/dL (8.4-10.2); Carbon Dioxide 25 mmol/L (22-32); Chloride 83 mmol/L (98-107); Estimated Glomerular Filt Rate 56 mL/min (>60); Globulin 3.1 g/dL (1.7-4.1); Glucose 92 mg/dL (80-110); Potassium 4.5 mmol/L (3.4-5.1); Sodium 120 mmol/L (137-145); Total Protein 6.7 g/dL (6.3-8.2)
[2022-06-29 09:14] LABS: HEMOLYSIS 36 (0-50)
[2022-06-29 09:16] LABS: Aspartate Aminotransferase 717 IU/L (17-59)
[2022-06-29 09:18] LABS: Troponin I 0.018 ng/mL (0.01-0.034)
--- NOTE | 2022-06-29 12:27 | P.PN_ITS ---
Subjective Subjective Date Patient Seen: 06/29/22 Interval history: 87 year old male, admitted with acute on chronic heart failure and hypervolemic hyponatremia. Improved today with mildly improved dyspnea. He continues to feel weak but also improved. Sodium improving slowly, to 120 today. Liver enzymes also improving. Creatinine improved slightly today as well, to 1.24. Baseline Cr not known. Exam Vital Signs (past 8 hours): - 06/29/22 06:21 06/29/22 08:44 06/29/22 09:00 Temperature 97 F L 96.9 F L Pulse Rate 83 83 Respiratory Rate 20 18 Blood Pressure 124/77 125/79 Pulse Oximetry 97 98 97 Oxygen Delivery Method Room Air Oxygen Flow Rate 0 0 06/29/22 12:16 Temperature 97.1 F L Pulse Rate 86 Respiratory Rate 18 Blood Pressure 120/75 Pulse Oximetry 95 Oxygen Delivery Method Oxygen Flow Rate 0 Oxygen Delivery Method Room Air Oxygen Flow Rate 0 Narrative Exam Narrative: General:? Patient is well developed and well nourished, in no distress at this t katelynn. HEENT:? Normocephalic, atraumatic, extraocular muscles intact, oral pharynx is clear and mucous membranes are moist. Neck: supple and symmetric, trachea is midline, no cervical adenopathy. + JVD Chest:? Normal AP diameter and contour without kyphoscoliosis, no tachypnea, equal chest rise bilaterally. Lungs:? CTA b/l no wheezing rhonchi or rales. Cardio:?regular rate with irregularly irregular rhythm, no m/r/g. Abdomen: S NT ND. No CVA tenderness. Musculoskeletal:? Muscle strength and tone are equal within normal limits, no deformity. Extremities: trace to 1+ b/l LE edema, no joint effusions. No cyanosis or clubbing. Skin:? Pale,? Warm to touch,dry and intact without rashes, ulcerations or petechiae.? Neuro:? Alert and orientated x3,?though memory appears slightly impaired. sensation to touch intact in all extremities, no gross deficits noted of cranial nerves. Psych:? Patient has a well-kept appearance, appropriate affect, mental status attitude thought context and judgment are appropriate for age. Objective Labs 06/29/22 05:49 06/29/22 08:40 Labs: Laboratory Results - last 24 hr 06/28/22 06/28/22 06/28/22 12:15 14:15 22:23 WBC RBC Hgb Hct MCV MCH MCHC RDW Plt Count Neut % (Auto) Lymph % (Auto) [place] % (Auto) Eos % (Auto) Baso % (Auto) Neut # (Auto) Lymph # (Auto) [place] # (Auto) Eos # (Auto) Baso # (Auto) Sodium 119 L* 118 L* 118 L* Potassium 4.5 4.9 4.6 Chloride 80 L 80 L 83 L Carbon Dioxide 27 25 23 BUN 37 H 37 H 36 H Creatinine 1.43 H 1.46 H 1.44 H Estimated GFR 47 L 46 L 47 L BUN/Creatinine Ratio 25.9 H 25.3 H 25.0 H Glucose 84 97 93 Calcium 7.9 L 8.0 L 7.8 L Magnesium Total Bilirubin 2.7 H AST 812 H ALT 464 H Alkaline Phosphatase 147 H Troponin I Total Protein 6.7 Albumin 3.7 Globulin 3.0 Albumin/Globulin Ratio 1.2 Hep Bs Antigen Hepatitis C Antibody 06/28/22 06/29/22 06/29/22 22:23 05:49 05:49 WBC 7.9 RBC 4.16 L Hgb 14.8 Hct 42.8 MCV 102.8 H MCH 35.5 H MCHC 34.5 RDW 14.3 Plt Count 93 L Neut % (Auto) 66.7 Lymph % (Auto) 16.8 L [place] % (Auto) 13.7 Eos % (Auto) 2.3 Baso % (Auto) 0.5 Neut # (Auto) 5200 Lymph # (Auto) 1300 [place] # (Auto) 1100 H Eos # (Auto) 200 Baso # (Auto) 0 Sodium Potassium Chloride Carbon Dioxide BUN Creatinine Estimated GFR BUN/Creatinine Ratio Glucose Calcium Magnesium 2.1 Total Bilirubin AST ALT Alkaline Phosphatase Troponin I 0.024 Total Protein Albumin Globulin Albumin/Globulin Ratio Hep Bs Antigen Hepatitis C Antibody 06/29/22 06/29/22 05:49 08:40 WBC RBC Hgb Hct MCV MCH MCHC RDW Plt Count Neut % (Auto) Lymph % (Auto) [place] % (Auto) Eos % (Auto) Baso % (Auto) Neut # (Auto) Lymph # (Auto) [place] # (Auto) Eos # (Auto) Baso # (Auto) Sodium 120 L Potassium 4.5 Chloride 83 L Carbon Dioxide 25 BUN 36 H Creatinine 1.24 Estimated GFR 56 L BUN/Creatinine Ratio 29.0 H Glucose 92 Calcium 7.9 L Magnesium Total Bilirubin 3.4 H AST 717 H ALT 465 H Alkaline Phosphatase 146 H Troponin I 0.018 Total Protein 6.7 Albumin 3.6 Globulin 3.1 Albumin/Globulin Ratio 1.2 Hep Bs Antigen Negative Hepatitis C Antibody Negative [facility] Medical History Congestive heart failure Hyperlipidemia Paroxysmal atrial fibrillation Surgical History No pertinent past surgical history Family History Father No pertinent past medical history Mother No pertinent past medical history Social History household members: none Smoking Status: Never smoker Assessment & Plan Assessment & Plan narrative: 1. Hyponatremia, severe, present on admission - suspect hypervolemic etiology, improving Na slowly with diuresis up to 120 today. Will continue diuresis for now given lack of symptoms currently. - Urine sodium <5 consistent with heart failure and low circulating blood volume - continue furosemide 60 mg IV BID, q6 hour BMPs today. 2. 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 TTE may be delayed until tomorrow given availability. - held metoprolol with borderline low BP in favor of diuresis. 3. STONE or CKD stage III - unclear baseline creatinine, but stable between 1.4-1.5, previous labs in 2019 showed cr. 0.8 but nothing found more recent. - checked renal ultrasound, negative for obstruction - creatinine improved today with diuresis to 1.2. 4. Hypothyroidism, new diagnosis - TSH 21.8, fT4 4.12. Started levothyroxine 50 mcg, repeat TSH with PCP in 1-2 months. 5. HLD - replace home statin with formulary alternative. 6. atrial fibrillation, subacute diagnosis, unable to further specify. - reportedly recently diagnosed, will need to hold beta mikki as discussed above. - rate controlled currently - continue home apixaban. 7. Transaminitis - imaging consistent with edema, rather than biliary pathology though AST and ALT elevations are quite markedly elevated. MRCP unremarkable without biliary obstruction. - f/u TTE - continue diuresis as suspect congestive hepatopathy. Less likely ischemia. - no evidence of cirrhosis on CT / MRI imaging - check hepatitis serologies. Hep Bs Ag negative, Hep C Ab negative. Code: Full, as discussed with patient. Surrogate decision maker is his girlfriend, and daughter DVT: on apixaban Dispo: Admitted as inpatient, likely discharge home in 2-3 days with improvement in volume status and hyponatremia. I have utilized all available immediate resources to obtain, update, or review the patient's current medications. Additional history provided by: ER provider. COVID-19 COVID-19 status: Negative Time Spent With Patient Critical Care time: I spent a total of [] minutes of critical care time on this patient's care today; this time is exclusive of procedural time. Quality VTE Deep Vein Thrombosis/Pulmonary Embolism Present on Admission: No
[2022-06-29 14:59] LABS: BUN Creatinine Ratio 28.7 (6-22); Blood Urea Nitrogen 33 mg/dL (9-20); Calcium 7.5 mg/dL (8.4-10.2); Carbon Dioxide 25 mmol/L (22-32); Chloride 84 mmol/L (98-107); Estimated Glomerular Filt Rate > 60 mL/min (>60); Glucose 141 mg/dL (80-110); HEMOLYSIS < 15 (0-50); Potassium 3.6 mmol/L (3.4-5.1); Sodium 120 mmol/L (137-145)
--- NOTE | 2022-06-29 16:08 | CM.DANOTE ---
Patient is an 87 yo male who was admitted on 06/28/22 for Weakness. Pt has MCR and [employer] for insurance and his PCP is not listed. EMR was reviewed. Per MD, pt with significant sodium levels and will need diuresis for a couple days before likely being stable for discharge. SW met bedside with pt who was getting an ultrasound and adult Dtr Grecia ([phone]) and explained role and they confirm that pt lives alone in [facility] but has Sig Other [place] who lives nearby and they spend a lot of time together. Pt has been incredibly independent and healthy and active, still drives, does not use DME for ambulation and denies any hx of HH or SNF. Pt's spouse about 15 years ago and pt has been able to maintain his independence well. Dtr confirms she is DPOA and states that up until about a week ago pt was doing well but with his sodium he has become weak and unsteady and she is hopeful for d/c to home and they would be agreeable to HH if needed. SW discussed HH services and frequency and SNF rehab services. Likely PT eval tomorrow when pt more medically appropriate towards determining any d/c planning needs and confirming if home a safe option. Plan: SW to follow tomorrow towards determining any d/c planning needs and confirming if pt's preference of home is a safe discharge. RAHEEL [place] Discharge Planning/Care Management Advanced directive, confirm from FAMILY Start: 06/28/22 13:56 Freq: Q24H Status: Active Protocol: Document 06/28/22 13:56 [facility] (Rec: 06/28/22 14:27 [facility] [id number]) Advance Directive, confirm on record Time 13:20 Person contacted patient Copy received No CM Discharge Assessment Start: 06/29/22 16:06 Freq: Status: Active Protocol: Document 06/29/22 16:06 [facility] (Rec: 06/29/22 16:08 [facility] [id number]) Discharge Planning Assessment Assigned Instrumental Teacher RAHEEL Sales DPOA/Assigned Designee Name Dtr GreciaQuitaMack Contact Information [phone] Advance Directives? Yes Advance Directives on File No History Provided By Patient,Family Member,Medical Record Has Patient been admitted in last 30 No days? Prior Living Arrangements House Household Members none Type of transporation used prior to Drives own vehicle admit Independent with ADL's Yes Is patient alert and oriented? Yes Caregiver for Another No Comment Likely PT eval to r/o HH Barriers to Discharge No Discharge Plan Home Transportation Arrangement Dtr or Sig Other to transport Additional Comment Pending likely PT eval Whiteboard Updated in Patient Room with Yes name and ext. # of Instrumental Teacher Review Status In Process Please Provide Date Initial DC 06/29/22 Assessment Was Performed Next Review Type Continued Stay Review
[2022-06-29] MEDS: LORazepam 1 MG TABLET PO (20:34)
[2022-06-29 21:46] LABS: BUN Creatinine Ratio 26.5 (6-22); Blood Urea Nitrogen 30 mg/dL (9-20); Calcium 7.5 mg/dL (8.4-10.2); Carbon Dioxide 28 mmol/L (22-32); Chloride 87 mmol/L (98-107); Estimated Glomerular Filt Rate > 60 mL/min (>60); Glucose 116 mg/dL (80-110); HEMOLYSIS 36 (0-50); Potassium 3.8 mmol/L (3.4-5.1); Sodium 123 mmol/L (137-145)
[2022-06-30] VITALS (11 sets, daily range): BP systolic 113–152; BP diastolic 59–110; PULSE 106–112; RESP 18; TEMP 35.8–36.4; O2SAT 95–98
[2022-06-30 04:54] LABS: Add Manual Diff / Slide Review NO; Basophils Absolute Auto 0 /uL (0-100); Basophils Percent Auto 0.4 % (0-2); Eosinophils Absolute Auto 100 /uL (0-450); Eosinophils Percent Auto 2.2 % (2-4); Hematocrit 41.8 % (41-53); Hemoglobin 14.4 g/dL (13.5-17.5); Lymphocytes Absolute Auto 1100 /uL (1100-4500); Lymphocytes Percent Auto 15.7 % (25-40); Mean Corpuscular HGB Conc 34.5 % (30-36); Mean Corpuscular Hemoglobin 35.8 PG (26-34); Mean Corpuscular Volume 103.6 fL (80-100); Monocytes Absolute Auto 1000 /uL (0-900); Monocytes Percent Auto 14.5 % (3-14); Neutrophils Absolute Auto 4500 /uL (1500-7000); Neutrophils Percent Auto 67.2 % (50-75); Platelet Count 158 X10^3/uL (150-400); Red Blood Cell Count 4.03 X10^6/uL (4.5-5.9); Red Cell Distribution Width 14.5 % (11.6-14.8); White Blood Cell Count 6.7 X10^3/uL (4.5-11.0)
[2022-06-30 05:13] LABS: Magnesium 2.1 mg/dL (1.6-2.3)
[2022-06-30] MEDS: LEVOTHYROXINE 50 MCG TABLET PO (05:54)
[2022-06-30] MEDS: OXYCODONE IR 5 MG TABLET PO (08:00)
[2022-06-30] MEDS: APIXABAN 5 MG TABLET PO ×2 (08:09→20:07)
[2022-06-30 08:46] LABS: Alanine Aminotransferase 334 IU/L (<50); Albumin 3.2 g/dL (3.5-5.0); Albumin Globulin Ratio 1.1 (1.0-2.8); Alkaline Phosphatase 147 U/L (38-126); Aspartate Aminotransferase 499 IU/L (17-59); BUN Creatinine Ratio 24.5 (6-22); Bilirubin Total 3.6 mg/dL (0.2-1.3); Blood Urea Nitrogen 24 mg/dL (9-20); Calcium 7.6 mg/dL (8.4-10.2); Carbon Dioxide 27 mmol/L (22-32); Chloride 87 mmol/L (98-107); Estimated Glomerular Filt Rate > 60 mL/min (>60); Globulin 2.9 g/dL (1.7-4.1); Glucose 106 mg/dL (80-110); HEMOLYSIS < 15 (0-50); Potassium 3.3 mmol/L (3.4-5.1); Sodium 124 mmol/L (137-145); Total Protein 6.1 g/dL (6.3-8.2)
[2022-06-30] MEDS: FUROSEMIDE 60 MG in SODIUM CHLORIDE 0.9% 50 ML 112 MG IV ×2 (09:00→16:57)
[2022-06-30] MEDS: POTASSIUM CHLORIDE 20 MEQ TAB 40 MEQ PO (12:20)
[2022-06-30] MEDS: METOPROLOL ER 25 MG TABLET PO ×2 (12:42→20:07)
[2022-06-30] MEDS: NYSTATIN POWDER 15GM 1 APPLIC TOP (17:01)
--- NOTE | 2022-06-30 18:06 | P.PN_ITS ---
Subjective Subjective Date Patient Seen: 06/30/22 Interval history: 87 year old male, admitted with acute on chronic heart failure and hypervolemic hyponatremia. Improving today with mildly improved dyspnea. He continues to feel weak but also improved. Sodium improving slowly, to 124 today. Liver enzymes also improving. Creatinine improved slightly today as well, to 0.98 Baseline Cr not known. Exam Vital Signs (past 8 hours): - 06/30/22 11:53 06/30/22 12:42 06/30/22 13:00 Temperature 97.6 F Pulse Rate 111 H 111 H Respiratory Rate 18 Blood Pressure 152/79 H 152/79 H Pulse Oximetry 97 95 Oxygen Delivery Method Room Air Oxygen Flow Rate 0 06/30/22 15:30 06/30/22 17:00 Temperature 96.4 F L Pulse Rate 106 H Respiratory Rate 18 Blood Pressure 132/110 H Pulse Oximetry 96 96 Oxygen Delivery Method Room Air Oxygen Flow Rate 0 Oxygen Delivery Method Room Air Oxygen Flow Rate 0 Narrative Exam Narrative: General:? Patient is well developed and well nourished, in no distress at this time. HEENT:? Normocephalic, atraumatic, extraocular muscles intact, oral pharynx is clear and mucous membranes are moist. Neck: supple and symmetric, trachea is midline, no cervical adenopathy. + JVD Chest:? Normal AP diameter and contour without kyphoscoliosis, no tachypnea, equal chest rise bilaterally. Lungs:? CTA b/l no wheezing rhonchi or rales. Cardio:?regular rate with irregularly irregular rhythm, no m/r/g. Abdomen: S NT ND. No CVA tenderness. Musculoskeletal:? Muscle strength and tone are equal within normal limits, no deformity. Extremities: trace to 1+ b/l LE edema, no joint effusions. No cyanosis or clubbing. Skin:? Pale,? Warm to touch,dry and intact without rashes, ulcerations or petechiae.? Neuro:? Alert and orientated x3,?though memory appears slightly impaired. sensation to touch intact in all extremities, no gross deficits noted of cranial nerves. Psych:? Patient has a well-kept appearance, appropriate affect, mental status attitude thought context and judgment are appropriate for age. Objective Labs 06/30/22 04:25 06/30/22 08:25 Labs: Laboratory Results - last 24 hr 06/29/22 06/30/22 06/30/22 21:18 04:25 04:25 WBC 6.7 RBC 4.03 L Hgb 14.4 Hct 41.8 MCV 103.6 H MCH 35.8 H MCHC 34.5 RDW 14.5 Plt Count 158 Neut % (Auto) 67.2 Lymph % (Auto) 15.7 L [place] % (Auto) 14.5 H Eos % (Auto) 2.2 Baso % (Auto) 0.4 Neut # (Auto) 4500 Lymph # (Auto) 1100 [place] # (Auto) 1000 H Eos # (Auto) 100 Baso # (Auto) 0 Sodium 123 L Potassium 3.8 Chloride 87 L Carbon Dioxide 28 BUN 30 H Creatinine 1.13 Estimated GFR > 60 BUN/Creatinine Ratio 26.5 H Glucose 116 H Calcium 7.5 L Magnesium 2.1 Total Bilirubin AST ALT Alkaline Phosphatase Total Protein Albumin Globulin Albumin/Globulin Ratio 06/30/22 08:25 WBC RBC Hgb Hct MCV MCH MCHC RDW Plt Count Neut % (Auto) Lymph % (Auto) [place] % (Auto) Eos % (Auto) Baso % (Auto) Neut # (Auto) Lymph # (Auto) [place] # (Auto) Eos # (Auto) Baso # (Auto) Sodium 124 L Potassium 3.3 L Chloride 87 L Carbon Dioxide 27 BUN 24 H Creatinine 0.98 Estimated GFR > 60 BUN/Creatinine Ratio 24.5 H Glucose 106 Calcium 7.6 L Magnesium Total Bilirubin 3.6 H AST 499 H ALT 334 H Alkaline Phosphatase 147 H Total Protein 6.1 L Albumin 3.2 L Globulin 2.9 Albumin/Globulin Ratio 1.1 [facility] Medical History Congestive heart failure Hyperlipidemia Paroxysmal atrial fibrillation Surgical History No pertinent past surgical history Family History Father No pertinent past medical history Mother No pertinent past medical history Social History household members: none Smoking Status: Never smoker Assessment & Plan Assessment & Plan narrative: 1. Hyponatremia, severe, present on admission - suspect hypervolemic etiology, improving Na slowly with diuresis up to 124 today. Will continue diuresis for now. - Urine sodium <5 consistent with heart failure and low circulating blood volume - continue furosemide 60 mg IV BID, okay to change to daily BMPs now given slow improvement without abrupt changes since admission. 2. 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 - held metoprolol with borderline low BP in favor of diuresis. Will start beta mikki today with mild RVR with rates in the 110s. 3. STONE - unclear baseline creatinine, but stable between 1.4-1.5 initially but now improved with continued diuresis to 0.98 today. - continue diuresis as above. 4. Hypothyroidism, new diagnosis - TSH 21.8, fT4 4.12. Started levothyroxine 50 mcg, repeat TSH with PCP in 1-2 months. 5. HLD - replace home statin with formulary alternative. 6. atrial fibrillation, subacute diagnosis, unable to further specify. with RVR - reportedly recently diagnosed, will need to hold beta mikki as discussed above. - tachycardia today, will resume home beta mikki at lower dose, 25 mg BID. - continue home apixaban. 7. Transaminitis - imaging consistent with edema, rather than biliary pathology though AST and ALT elevations are quite markedly elevated. MRCP unremarkable without biliary obstruction. - TTE as noted above. - continue diuresis as suspect congestive hepatopathy. Less likely ischemia. - no evidence of cirrhosis on CT / MRI imaging - check hepatitis serologies. Hep Bs Ag negative, Hep C Ab negative. Code: Full, as discussed with patient. Surrogate decision maker is his girlfriend, and daughter DVT: on apixaban Dispo: Admitted as inpatient, likely discharge home in 2-3 days with improvement in volume status and hyponatremia. I have utilized all available immediate resources to obtain, update, or review the patient's current medications. Additional history provided by: ER provider. COVID-19 COVID-19 status: Negative Time Spent With Patient Critical Care time: I spent a total of [] minutes of critical care time on this patient's care today; this time is exclusive of procedural time. Quality VTE Deep Vein Thrombosis/Pulmonary Embolism Present on Admission: No
[2022-06-30] MEDS: LORazepam 1 MG TABLET PO (20:07)
[2022-06-30] MEDS: SODIUM CHLORIDE 0.9% FLUSH 10 ML IV (20:07)
--- NOTE | 2022-06-30 23:13 | PC.NURSE ---
Patient is alert and oriented except incorrect on year. Slightly [place] and has no hearing aids. Breath sounds with expiratory crackles in bilateral mid/lower lobes; RA sat is 97% and denies SOB. HR irregular and tachy w/telemetry reading of afib RVR w/rate of 110. Is able to turn himself in bed. Gets up to bathroom with SBA. BT present and abdomen is soft; passing flatus. Has some urinary frequency/urgency related to diuretic use but denies dysuria. 1+ bilateral LE edema which patient states is improved from admission. Bruising noted on left abdomen related to recent fall prior to admission. Denied pain. Requested Ativan at bedtime and is currently asleep. Fall risk score is high and bed alarm is activated. Maintained on fluid restriction.
[2022-07-01] VITALS (11 sets, daily range): BP systolic 101–141; BP diastolic 65–89; PULSE 62–105; RESP 14–19; TEMP 35.9–36.3; O2SAT 93–96
[2022-07-01 00:36] LABS: Hepatitis B Core Antibody Negative (Negative)
[2022-07-01] MEDS: LEVOTHYROXINE 50 MCG TABLET PO (06:06)
[2022-07-01 06:36] LABS: Hepatitis B Surf Ab Qualitativ Non Reactive (.)
[2022-07-01 07:03] LABS: Add Manual Diff / Slide Review NO; Basophils Absolute Auto 0 /uL (0-100); Basophils Percent Auto 0.4 % (0-2); Eosinophils Absolute Auto 200 /uL (0-450); Eosinophils Percent Auto 4.3 % (2-4); Hematocrit 43.1 % (41-53); Hemoglobin 14.5 g/dL (13.5-17.5); Lymphocytes Absolute Auto 1000 /uL (1100-4500); Lymphocytes Percent Auto 17.3 % (25-40); Mean Corpuscular HGB Conc 33.6 % (30-36); Mean Corpuscular Hemoglobin 35.3 PG (26-34); Mean Corpuscular Volume 105.3 fL (80-100); Monocytes Absolute Auto 800 /uL (0-900); Monocytes Percent Auto 14.6 % (3-14); Neutrophils Absolute Auto 3600 /uL (1500-7000); Neutrophils Percent Auto 63.4 % (50-75); Platelet Count 152 X10^3/uL (150-400); Red Blood Cell Count 4.09 X10^6/uL (4.5-5.9); Red Cell Distribution Width 14.9 % (11.6-14.8); White Blood Cell Count 5.7 X10^3/uL (4.5-11.0)
[2022-07-01 07:19] LABS: Alanine Aminotransferase 304 IU/L (<50); Albumin 3.5 g/dL (3.5-5.0); Albumin Globulin Ratio 1.1 (1.0-2.8); Alkaline Phosphatase 152 U/L (38-126); Aspartate Aminotransferase 359 IU/L (17-59); BUN Creatinine Ratio 19.3 (6-22); Bilirubin Total 2.7 mg/dL (0.2-1.3); Blood Urea Nitrogen 17 mg/dL (9-20); Calcium 7.8 mg/dL (8.4-10.2); Carbon Dioxide 33 mmol/L (22-32); Chloride 89 mmol/L (98-107); Estimated Glomerular Filt Rate > 60 mL/min (>60); Globulin 3.1 g/dL (1.7-4.1); Glucose 91 mg/dL (80-110); HEMOLYSIS < 15 (0-50); Potassium 3.2 mmol/L (3.4-5.1); Sodium 132 mmol/L (137-145); Total Protein 6.6 g/dL (6.3-8.2)
[2022-07-01 07:21] LABS: Magnesium 2.1 mg/dL (1.6-2.3)
[2022-07-01] MEDS: SODIUM CHLORIDE 0.9% FLUSH 10 ML IV ×2 (08:25→20:11)
[2022-07-01] MEDS: APIXABAN 5 MG TABLET PO ×2 (08:25→20:11)
[2022-07-01] MEDS: METOPROLOL ER 25 MG TABLET PO (08:25)
[2022-07-01] MEDS: DEXTROSE 5% IV (09:00)
[2022-07-01] MEDS: WATER IV (09:00)
[2022-07-01] MEDS: POTASSIUM CHLORIDE 20 MEQ TAB 40 MEQ PO ×2 (11:27→17:19)
[2022-07-01 11:39] LABS: BUN Creatinine Ratio 20.9 (6-22); Blood Urea Nitrogen 18 mg/dL (9-20); Calcium 7.8 mg/dL (8.4-10.2); Carbon Dioxide 31 mmol/L (22-32); Chloride 87 mmol/L (98-107); Estimated Glomerular Filt Rate > 60 mL/min (>60); Glucose 132 mg/dL (80-110); HEMOLYSIS 18 (0-50); Potassium 3.6 mmol/L (3.4-5.1); Sodium 128 mmol/L (137-145)
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
--- NOTE | 2022-07-01 16:11 | PT.IIE ---
Current Diagnoses Hypo-osmolality and hyponatremia (06/28/22) Surgical History (Last Reviewed 06/28/22 @ 15:37 by Quan Ratliff DO) No pertinent past surgical history Medical History (Last Reviewed 06/28/22 @ 15:37 by Quan Ratliff DO) Congestive heart failure Hyperlipidemia Paroxysmal atrial fibrillation Physical Therapy Inpatient Evaluation/Re-Eval M1 PT/OT-IP Prior Functional Status Start: 07/01/22 18:28 Freq: NEEDED Status: Active Protocol: Document 07/01/22 16:11 AB (Rec: 07/01/22 18:44 AB [id number]) Medical Review Prior Functional Status Medical History Reviewed Yes Communication able to make needs known Mobility and Gait pt stated that he is independent with all mobilities and ambulation without AD Social History Household Members none Living Arrangements House Number of Floors (Floors) One Floor Number of Stairs To Enter/Railing? 1 step to enter Home Environment Standard Height Toilet,Walk in Shower Home Equipment Grab Bars Near Toilet,Grab Bars In Shower Additional Social History Comment pt's GF lives ~ 3 min away and may stay with pt to assist if needed GF stated that she is going to buy a walker for the pt M2 PT-IP Current Condition Start: 07/01/22 18:28 Freq: NEEDED Status: Active Protocol: Document 07/01/22 16:11 AB (Rec: 07/01/22 18:44 AB [email or web address]) Physical Therapy Current Condition Current Condition Evaluation Date 07/01/22 Treatment Diagnosis CHF; A-fib; generalized weakness Onset Date 06/28/22 M3 PT-IP Subjective Start: 07/01/22 18:28 Freq: NEEDED Status: Active Protocol: Document 07/01/22 16:11 AB (Rec: 07/01/22 18:44 AB [id number]) Subjective Physical Therapy Visit Type Type Initial Evaluation Visit Start Time 16:11 Visit Stop Time 17:01 Total Visit Minutes 50 Number of FACING MACHINE OPERATOR Visits 0 Physical Therapy Visit Comments Patient Comments agreeable to do PT M4 PT-IP Mobility and Gait Start: 07/01/22 18:28 Freq: NEEDED Status: Active Protocol: Document 07/01/22 16:11 AB (Rec: 07/01/22 18:44 AB [email or web address]) PT-Bed Mobility Assessment Supine to Sit Supine to Sit Standby Assistance Sit to Supine Sit to Supine Standby Assistance PT-Transfer Assessment Sit to and From Stand Sit to and from Stand Standby Assistance,Contact Guard Assistance,1 Person Assistance,Use of Upper Extremities Equipment Transfer Assistive Device Gait Belt,Front Wheeled Walker Orthotic/Prosthetic Devices or Brace: No Comments Mobility Comments BP in supine: 129/79 O2 sat at RA 97% [place]: 109-117 irregular completed supine to sit SBA. sit to stand CGA and ambulated in room using FWW ~ 20 ft SBA to CGA. pt sat on the chair. O2 sat decreased to 86-87% and HR 127-135. cued for deep breaths and pt rested. O2 sat 93-95% and HR: 110 before getting up again. assessed ambulation without AD requiring CGA to min A 20 ft. presents with unsteady and slight antalgic gait. pt sat back on the chair and rested. educated pt with 4WW use and use of brakes. pt ambulated in room using 4WW CGA and cues for brakes. pt requested to sit on EOB. call light within reach. informed pt and family regarding use of 4WW when d/c home due to decrease activity tolerance that pt might needed seated rest breaks but not safe to ambulate without AD at this time. pt and family agreed. Left pt with family in room. Gait Assessment Gait Gait Assistance Required: Contact Guard Assist,Minimum Assistance,1 Person Assist Distance (Feet) 20 Able to Maintain Weight Bearing Status Yes During Gait Assistive Devices Assistive Device None,Gait Belt,Front Wheeled Walker,4 Wheeled Walker Orthotic/Prosthetic Devices or Brace: No Gait Deviations General Gait Pattern Decreased Stride Length, Decreased Feet Clearance,Step- to Gait Factors Limiting Gait Function Factors Limiting Gait Function Decreased Activity Tolerance, Decreased Strength,Pain,Poor Balance,Poor Safety Awareness, Respiratory Distress PT-Balance Assessment Sitting Balance and Reactions Static Sitting Balance Ability Normal Dynamic Sitting Balance Ability Good Standing Balance and Reactions Static Standing Balance Ability Fair Dynamic Standing Balance Ability Fair Device Used 4WW M5 PT-IP Objective Assessments Start: 07/01/22 18:28 Freq: NEEDED Status: Active Protocol: Document 07/01/22 16:11 AB (Rec: 07/01/22 18:44 AB [id number]) Orientation Orientation/Cognition Level of Alertness Alert Orientation Name,Situation Safety Awareness Decreased Safety Awareness Memory Description No Deficits Noted Gross Range of Motion Lower Extremity ROM Assessment Within Functional Limits Strength Lower Extremity Strength Hip 4-/5 Knee 4-/5 Muscle Tone Muscle Tone WNL Yes M6 PT-IP Treatment Start: 07/01/22 18:28 Freq: NEEDED Status: Active Protocol: Document 07/01/22 16:11 AB (Rec: 07/01/22 18:44 AB [id number]) Physical Therapy Treatment Education Education Provided Safety M7 PT-IP Assessment and Plan Start: 07/01/22 18:28 Freq: NEEDED Status: Active Protocol: Document 07/01/22 16:11 AB (Rec: 07/01/22 18:44 AB [email or web address]) PT Summary Assessment and Plan Potential Rehabilitation Potential Fair Status of Condition at Evaluation Evolving Summary Impairments Pain,ROM,Strength,Balance, Coordination,Sensation,Tone, Cognition,Bed Mobility, Transfers,Gait,Activity Tolerance Assessment Summary pt requiring SBA to CGA with ambulation using FWW/4WW, CGA to min A without AD. pt has decrease in O2 sat with activity with increase HR to 135. will continue to assess progress. pt will need assistance at home and GF can stay with pt if needed. GF also stated that she will buy both a FWW and a 4WW for the pt. pt will benefit from cardiopulmonary rehab. Goals Bed Mobility Goal Independent Transfer Goal Independent,Four Wheeled Walker Gait Goal Independent,Four Wheel Walker Gait Distance 150 Other Goals improve ambulation without AD 150 ft SBA up/down 1 step SBA Days to Meet Goals 10 Frequency of Treatment Frequency Of Treatment Once a Day Treatment Plan Physical Therapy Treatment Plan Bed Mobility Training,Transfer Training,Gait Training, Therapeutic Exercise,Balance Retraining,Discharge Planning, Hot or Cold Pack,Neuromuscular Re-ed,Coordination Retraining Precautions Other Precautions O2 sat and HR Recommendations To Nursing Amount of Assist Needed 1 Person Assist Discharge Recommendations PT Discharge Recommendations Home with Assistance, Outpatient PT Other Discharge Recommendations pt will benefit from cardiopulmonary rehab Transportation Needs at Discharge Private Vehicle
[2022-07-01] MEDS: METOPROLOL ER 50 MG TABLET 100 MG PO (20:10)
[2022-07-01] MEDS: BUMETANIDE 1 MG TABLET PO (20:11)
[2022-07-01] MEDS: ATORVASTATIN 20 MG TABLET 10 MG PO (20:11)
[2022-07-01] MEDS: LORazepam 1 MG TABLET PO (20:11)
--- NOTE | 2022-07-01 22:49 | PC.NURSE ---
Patient is alert and oriented. COUNCIL without hearing aids. Breath sounds CTA with RA sat of 95%; denies SOB. HR irregular and tachy at 103bpm. Denied nausea. BT present and abdomen is soft; passing flatus. Voiding on toilet; denies dysuria. Is able to turn himself in bed and due to weakness/unsteadiness is provided SBA when up to bathroom. Continues to have 1+ bilateral LE edema. Denied pain. Fall risk score is high and bed alarm is activated. Continues on fluid restriction.
[2022-07-02 05:23] VITALS: BP 95/76; PULSE 64; RESP 18; TEMP 35.9; O2SAT 97
[2022-07-02] MEDS: LEVOTHYROXINE 50 MCG TABLET 25 MCG PO (05:57)
[2022-07-02 07:07] LABS: Alanine Aminotransferase 248 IU/L (<50); Albumin 3.8 g/dL (3.5-5.0); Albumin Globulin Ratio 1.2 (1.0-2.8); Alkaline Phosphatase 138 U/L (38-126); Aspartate Aminotransferase 263 IU/L (17-59); BUN Creatinine Ratio 18.7 (6-22); Bilirubin Total 2.3 mg/dL (0.2-1.3); Blood Urea Nitrogen 17 mg/dL (9-20); Calcium 8.1 mg/dL (8.4-10.2); Carbon Dioxide 35 mmol/L (22-32); Chloride 89 mmol/L (98-107); Estimated Glomerular Filt Rate > 60 mL/min (>60); Globulin 3.1 g/dL (1.7-4.1); Glucose 91 mg/dL (80-110); HEMOLYSIS < 15 (0-50); Potassium 4.8 mmol/L (3.4-5.1); Sodium 131 mmol/L (137-145); Total Protein 6.9 g/dL (6.3-8.2)
[2022-07-02] MEDS: BUMETANIDE 1 MG TABLET PO (08:32)
[2022-07-02] MEDS: SODIUM CHLORIDE 0.9% FLUSH 10 ML IV (08:33)
[2022-07-02] MEDS: APIXABAN 5 MG TABLET PO (08:33)
[2022-07-02 08:52] VITALS: BP 118/80; PULSE 96; RESP 18; TEMP 36.1; O2SAT 97
[2022-07-02 09:00] VITALS: O2SAT 97
--- NOTE | 2022-07-02 11:12 | P.DS_ITS ---
History of Present Illness History of Present Illness Chief complaint: Weakness Discharge Providers Provider Date of admission: 06/28/22 12:56 Discharge Date: 07/02/22 Consults: 07/01/22 12:32 Consult to Occupational Therapy Evaluate & Treat Comment: Physician Instructions: Evaluate and treat Consult to Physical Therapy Evaluate & Treat Comment: Physician Instructions: Evaluate and Treat 07/02/22 11:00 Consult to Home Health Routine Comment: Reason For Exam: Home Health upon discharge Discharge provider: Pop Garcia MD Summary Hospital Course Discharge Diagnosis: 1. Acute on chronic heart failure, diastolic and valvular 2. Acute severe hyponatremia 3. Acute kidney injury 4. Hypothyroidism 5. Chronic atrial fibrillation 6. Transaminitis secondary to CHF ECHO:Interpretation Summary The patient was in atrial fibrillation with heart rates between 85-105 bpm during the exam. Normal left ventricle size with ejection fraction 55-60%. ? Moderately dilated right ventricle with normal right ventricular systolic function. Severe biatrial enlargement. ? The aortic valve is mildly calcified. Mild to moderate aortic regurgitation. ? Moderate mitral annular calcification. Moderate mitral regurgitation. ? The tricuspid annulus is dilated. Severe tricuspid regurgitation. The right ventricular systolic pressure is estimated to be at least 46 mmHg based on an estimated right atrial pressure of 15 mm Hg. Renal US:Kidneys:? Kidneys are mildly atrophic.? Right kidney measures 9.0 cm long; left kidney measures 7.3 cm long.? Right renal cortical thickness is within normal limits. ? Bladder:? Pre-void bladder volume is 107 mL; the patient was unable to void.? Bilateral ureteral jets not visualized, nonspecific in the absence of hydronephrosis. ? Miscellaneous:? No free pelvic fluid.? ? IMPRESSION:? Mildly atrophic kidneys, otherwise unremarkable renal ultrasound. Abd/pelvis CT:Lung bases:? COPD appears present. Heart:? Cardiac dimensions are mildly enlarged.. ? ABDOMEN: Liver:? Unremarkable.? ? Gallbladder:? The gallbladder appears wall thickened with mild adjacent edema.? Calcified gallstones are not seen within the gallbladder lumen but noncalcified gallstones frequently are not accurately detected by CT scanning.? ? Biliary ducts:? Unremarkable.? ? Pancreas:? Unremarkable.? ? Spleen:? Unremarkable.? ? Adrenal Glands:? Unremarkable.? ? Kidneys and Ureters:? Unremarkable.? ? ? Stomach and Bowel:? Stomach, small bowel loops, and colon are unremarkable.? Peritoneum:? No abnormal intraperitoneal fluid.? No free air.? ? Ventral Wall: ? No hernias but note is made of a generalized mild anasarca pattern..? Abdominal Nodes:? No retroperitoneal or mesenteric adenopathy by size criteria.? Vessels:? Aorta and inferior vena cava are normal in size.? ? PELVIS: Pelvic Organs:? Unremarkable.? ? Bladder:? Unremarkable.? ? Pelvic Nodes: No enlarged lymph nodes.? Miscellaneous: No hernias are seen.? Generalized mild anasarca pattern. ? ? Bones:? Unremarkable.? IMPRESSION:? The liver appears free of obstruction or intrahepatic biliary distension.? The gallbladder, however, appears wall thickened and indistinctly marginated with mild adjacent edema.? This may reflect acute cholecystitis or chronic cholecystitis.? Follow-up by gallbladder ultrasound likely is warranted in this clinical circumstance to more accurately assess the gallbladder itself.? As noted above, noncalcified gallstones are frequently not accurately detected by CT scanning. ? Mild cardiomegaly, severe COPD suspected. Abd MRI:Lung bases:? Small right pleural effusion. ? Solid organs:? Gallbladder is grossly unremarkable without filling defects.? Limited sequences of the common bile duct are also likewise unremarkable without distension or filling defects.? There is a suggestion pericholecystic fluid.? Liver is normal in size and enhancement.? Biliary system is non dilated.? Pancreas is normal in morphology.? Spleen is normal in size and enhancement.? No adrenal nodules.? Both kidneys demonstrate normal size and enhancement, without hydronephrosis.? ? Nodes and vessels:? No retroperitoneal or mesenteric adenopathy by size criteria.? Aorta and inferior vena cava are normal in size.? ? Bowel and peritoneum:? Unenhanced bowel loops are normal in caliber.? No free fluid.? ? Bones and soft tissues:? No ventral hernias.? Bone marrow is normal in overall signal.? IMPRESSION:? ? 1. Limited by motion artifact and patient inability to suspend respiration.? ? 2. No MR evidence of cholelithiasis or choledocholithiasis, within the limits of the exam. ? 3. Possible pericholecystic edema.? Consider follow-up ultrasound evaluation for further evaluation.? Hospital Course: Patient was admitted due to overt heart failure with significant laboratory abnormalities of severe hyponatremia, acute kidney injury and transaminitis from hepatic congestion. He was successfully diuresed with IV Lasix and approaching euvolemia status. Patient's presenting complaints of weakness, fatigue and edema are much improved. His renal failure resolved, hyponatremia also much improved with sodium 132 on discharge (vs 117 on admit), and liver enzymes are trending down. We kept his diuretic dosage the same on discharge as he had very recently seen his coordinate measuring machine programmer Dr. Randolph Fairbanks on June 24 and started then on bumetanide 1 mg b.i.d. to replace furosemide. Recommend repeat BMP in 1 week. He is newly started on thyroid replacement therapy. His TSH was 21.8 with free T4 of 4.12. He should have repeat TSH in about 6 weeks. Patient was also seen by PT and is 1 person standby assist with use of walker. Home health RN and PT is ordered. Additionally he is advised to stop driving. Status at Discharge Cognitive/behavioral status at discharge: oriented Functional status at discharge: uses cane/walker Overall status at discharge: patient is progressing back to baseline Time Spent with Patient Time spent: Greater than 30 minutes Exam Vital Signs (past 8 hours): - 07/02/22 05:23 07/02/22 05:23 07/02/22 08:52 Temperature 96.6 F L 97.0 F L Pulse Rate 64 96 H Respiratory Rate 18 18 Blood Pressure 95/76 118/80 Pulse Oximetry 97 97 97 Oxygen Delivery Method Room Air Oxygen Flow Rate 0 0 0 07/02/22 09:00 Temperature Pulse Rate Respiratory Rate Blood Pressure Pulse Oximetry 97 Oxygen Delivery Method Room Air Oxygen Flow Rate 0 Oxygen Delivery Method Room Air Oxygen Flow Rate 0 Narrative Exam Narrative: General: Alert and comfortable Lungs: bibasilar crackles Heart: irregularly irregular abd: soft Ext: 1+ pitting Neuro: nl affect, speech and cognition Objective Labs 07/01/22 06:05 07/02/22 05:30 Labs: Laboratory Results - last 24 hr 07/01/22 07/02/22 11:05 05:30 Sodium 128 L 131 L Potassium 3.6 4.8 D Chloride 87 L 89 L Carbon Dioxide 31 35 H BUN 18 17 Creatinine 0.86 0.91 Estimated GFR > 60 > 60 BUN/Creatinine Ratio 20.9 18.7 Glucose 132 H 91 Calcium 7.8 L 8.1 L Total Bilirubin 2.3 H AST 263 H ALT 248 H Alkaline Phosphatase 138 H Total Protein 6.9 Albumin 3.8 Globulin 3.1 Albumin/Globulin Ratio 1.2 PFSH Medical History Congestive heart failure Hyperlipidemia Paroxysmal atrial fibrillation Surgical History No pertinent past surgical history Family History Father No pertinent past medical history Mother No pertinent past medical history Social History household members: none Smoking Status: Never smoker Discharge Plan Discharge Plan Patient Disposition: Home Provider Discharge Comment: It was a pleasure taking care of you. Check weight at same time every day, take extra tablet of bumetanide if your weight goes up by more than 2 pounds in a day or 4 pounds in a week. Have blood work done in 1 week to check kidneys and electrolytes. Have TSH checked in about 6 weeks for thyroid monitoring. Home health nurse and PT has been arranged. Discharge orders & Medications Prescriptions: New levothyroxine 25 mcg capsule 25 mcg PO DAILY Qty: 30 1RF Continued metoprolol succinate 100 mg tablet extended release 24 hr 100 mg PO BEDTIME simvastatin 20 mg tablet 20 mg PO BEDTIME bumetanide 1 mg tablet 1 mg PO BID lorazepam 1 mg tablet 1 mg PO BEDTIME PRN (Reason: Insomnia) Eliquis 5 mg tablet 5 mg PO BID Follow up/Referrals: Randolph Fairbanks MD [Non-Staff] - Bessy Castillo MD [Non-Staff] - Diet/Activity/Treatments Diet: Regular Visit Report/Discharge Packet Stand Alone Forms: Patient Portal/API, Stroke Signs & Symptoms Quality VTE Deep Vein Thrombosis/Pulmonary Embolism Present on Admission: No
--- NOTE | 2022-07-02 11:49 | OT.IP.EVAL ---
Current Diagnoses Hypo-osmolality and hyponatremia (06/28/22) Past Medical History (Last Reviewed 06/28/22 @ 15:37 by Quan Ratliff DO) Congestive heart failure Hyperlipidemia Paroxysmal atrial fibrillation Surgical History (Last Reviewed 06/28/22 @ 15:37 by Quan Ratliff DO) No pertinent past surgical history Occupational Therapy Inpatient Evaluation/Re-Eval M1 PT/OT-IP Prior Functional Status Start: 07/01/22 18:28 Freq: NEEDED Status: Active Protocol: Document 07/02/22 12:52 [facility] (Rec: 07/02/22 13:15 [facility] [id number]) Medical Review Prior Functional Status Medical History Reviewed Yes Communication able to make needs known Mobility and Gait pt stated that he is independent with all mobilities and ambulation without AD Activities of Daily Living and IADL's Pt states prior able to do all his ADl,IADL and drives. Social History Household Members none Living Arrangements House Number of Floors (Floors) One Floor Number of Stairs To Enter/Railing? 1 step to enter Home Environment Standard Height Toilet,Walk in Shower Home Equipment Grab Bars Near Toilet,Grab Bars In Shower Additional Social History Comment pt's GF lives ~ 3 min away and may stay with pt to assist if needed GF stated that she is going to buy a walker for the pt M2 OT-IP Current Condition Start: 07/02/22 12:52 Freq: Status: Active Protocol: Document 07/02/22 12:52 [facility] (Rec: 07/02/22 13:15 [facility] [id number]) Occupational Therapy Current Condition Current Condition Evaluation Date 07/02/22 Treatment Diagnosis CHF, A-fib Diagnosis Onset Date 07/01/22 M3 OT- IP Subjective and Pain Start: 07/02/22 12:52 Freq: Status: Active Protocol: Document 07/02/22 12:52 [facility] (Rec: 07/02/22 13:15 [facility] [id number]) OT- Subjective Occupational Therapy Visit Type Type Initial Evaluation Visit Start Time 11:00 Visit Stop Time 11:49 Total Visit Minutes 49 Occupational Therapy Visit Comments Patient Comments Pt agreed to do OT eval. Patient/Caregiver Goals To go home. OT Pain Assessment Pain When Pain Assessed At Rest Pain Present Pain Present Denied Pain M4 OT- IP ADL's Start: 07/02/22 12:52 Freq: Status: Active Protocol: Document 07/02/22 12:52 [facility] (Rec: 07/02/22 13:15 [facility] [id number]) OT [id number] Comments OT Self-Feeding Comments NO needs anticipated OT ADL-Grooming Comments OT Grooming Comments Pt states did prior. OT ADL-Oral Care Comments Oral Care Comments Pt did prior. OT ADL-Dressing Comments OT Dressing Comments Pt states dressed himself. OT ADL-Toileting Comments OT Toileting Comments Pt able to use the toilet, suggested to use it while seated if tired or use the FWW over the toilet. Pt's daughter to get a RTS with handles for pt to use. OT ADL-Bathing Comments OT Bathing Comments Pt has a shower chair at home to use. M5 OT- IP IADL's Start: 07/02/22 12:52 Freq: Status: Active Protocol: Document 07/02/22 12:52 [facility] (Rec: 07/02/22 13:15 [facility] [id number]) OT-Instrumental Activities of Daily Living Deficits IADL Deficits Identified Deficits Home Safety Awareness Awareness of Need for Assistance at Home Decreased Awareness Home Safety Comments Pt's daughter to stay with him initially and pt has a girlfriend to assist. Medication Management Medication Management Comments Pt will need supervision at this time. Money Management Money Management Comments Pt's daughter states his Life Partner will help supervise and take over the finances as needed. Meal Preparation Meal Preparation Caregiver Provides Assist Aircraft Maintenance Director Aircraft Maintenance Director Caregiver Provides Assist Aircraft Maintenance Director Comments Pt states has a warehouse distribution manager 2x/month. Driving Driving Concerns Identified Regarding Safety Driving Comments Pt will not longer be driving. M6 OT- IP Functional Cognition Start: 07/02/22 12:52 Freq: Status: Active Protocol: Document 07/02/22 12:52 [facility] (Rec: 07/02/22 13:15 [facility] [id number]) Cognitive Factors Limiting Selfcare Function Cognitive Ability Level of Alertness Alert Patient Orientation Name,Place,Situation Attention Span Ability Capable of Focused Attention, Capable of Sustained Attention Ability to Follow Commands Able to Follow One Step Commands with Increased Time, Able to Follow One Step Commands with Repetition Memory Description Short Term Impaired,Working Impaired Safety Awareness Underestimates Need for Assistance Problem Solving Ability Unable to Identify Errors, Needs Assist to Identify Solutions Cognitive Comments Cognitive Assessment Comments Pt scored 632 seconds and MAX vc for [place] Making Part B which implies severe impairments for visual attention, speed of processing , mental flexibility, executive functioning, and task switching. Pt gets very distracted and needing cues to recall the directions. OT- Vision and Hearing OT- Hearing Assessment OT- Hearing Assessment WFL OT- Vision Assessment Visual Acuity Glasses All The Time M7 OT- IP Mobility and Balance Start: 07/02/22 12:52 Freq: Status: Active Protocol: Document 07/02/22 12:52 [facility] (Rec: 07/02/22 13:15 [facility] [id number]) OT- Bed Mobility Assessment Supine to Sit Supine to Sit Assist Independent Sit to Supine Sit to Supine Assist Independent OT-Transfer Assessment Sit to and From Stand Sit to and from Stand Standby Assistance Transfers Transfer Ability Standby Assistance,Contact Guard Assistance Technique Transfer Destination Bed Transfer Technique Stand Step Pivot Devices Transfer Assistive Devices Gait Belt,Front Wheeled Walker Comments Mobility Comments CGA without the FWW as a little unsteady on his feet. SBA with FWW . OT- Balance Assessment Sitting Balance and Reactions Static Sitting Balance Ability Normal Dynamic Sitting Balance Ability Good Standing Balance and Reactions Static Standing Balance Ability Good Dynamic Standing Balance Ability Fair M8 OT- IP Objective Assessments Start: 07/02/22 12:52 Freq: Status: Active Protocol: Document 07/02/22 12:52 [facility] (Rec: 07/02/22 13:15 [facility] [id number]) OT Gross Range of Motion Upper Extremity Range of Motion Assessment Within Functional Limits OT Strength Upper Extremity Strength Assessment Within Functional Limits OT- Coordination Assessment Upper Extremity Finger to Nose Test Right UE Impaired Finger Tapping Test Bilateral UE Impaired Comments Coordination Comments Right hand slight off the first time the first time. Increased time for both hands. OT-Muscle Tone Assessment Muscle Tone WNL Yes M9 OT- IP Assessment and Plan Start: 07/02/22 12:52 Freq: Status: Active Protocol: Document 07/02/22 12:52 [facility] (Rec: 07/02/22 13:15 [facility] [id number]) OT Summary Assessment and Plan Potential Rehabilitation Potential Good Analytic Complexity at Evaluation Moderate Summary OT Impairments Balance,Functional Cognition, Functional Mobility,Bathing, Activity Tolerance Progress Towards Goals Progressing Toward Goals Assessment Summary Pt MOD complexity and main barriers are decreased dynamic balance, executive cognitive functioning, and decreased endurance. Pt will greatly benefit from 14/12 supervision and assist for IADL needs and home health to assess safety in the environment for the pt. Pt to go home with 24/7 assist when medically stable. Pt scored 632 seconds and MAX vc for [place] Making Part B which implies severe impairments for visual attention, speed of processing , mental flexibility, executive functioning, and task switching. Goals Bathing Goal Independent Toilet Transfer Goal Independent Shower Transfer Goal Independent Days to Meet Goals 2 Frequency of Treatment Frequency Of Treatment Once a Day Treatment Plan OT Treatment Plan ADL Training,Functional Cognition Training,Functional Mobility,Patient/Family Education,Discharge Planning Discharge Recommendations OT Discharge Recommendations Home with 24/7 Assist Available,Home Health Home Equipment Needs FWW Transportation Needs at Discharge Private Vehicle
--- NOTE | 2022-07-02 14:01 | PC.NURSE ---
Pt was assisted to dress with RN and ate half of his lunch. Pt's daughter and girlfriend were present when reviewing d/c paperwork. Reviewed CHF scale, diet and weighing every morning as well as the new medication. levothyroxine, and MD note to increase diaretic if pt has a weight gain of 2-4 lbs in one week. Family and pt had no further questions or concerns. Pt left unit via wheelchair accompanied by RN and daughter to [facility] with all belongings @ 1400.
--- NOTE | 2022-07-02 15:44 | CM.DPNOTE ---
DC Note Patient discharged home today, Dr Garcia recommends HH services Lengthy conversation w/patient and his dtr Grecia, later with SO Cortney. Reviewed plan; patient agreeable to HH services. HH agency list reviewed and no preference stated. Referral inevitably made to [facility] d/t open availability, requested HH RN/PT Updated patient and family with referral to [facility] and provided Senior Resource Guide to both dtr Grecia ([place]) and SO Cortney (lives down the block) Plan: DC home w/supportive family, [facility] services, via family transport JW
== END 2022-07-02 14:00 | disposition home or self-care (01) | DRG 640 ==
LOC: ED 06-28 12:56 → AC 06-28 13:20
PROVIDERS: Emergency Medicine; Internal Medicine; Admitting Provider Internal Medicine; Emergency Provider Emergency Medicine; Referring Provider Emergency Medicine; Visit Provider Internal Medicine
DX: E87.1 Hypo-osmolality and hyponatremia (principal); I50.33 Acute on chronic diastolic (congestive) heart failure; N17.9 Acute kidney failure, unspecified; I48.0 Paroxysmal atrial fibrillation; E78.5 Hyperlipidemia, unspecified; E03.9 Hypothyroidism, unspecified; N18.30 Chronic kidney disease, stage 3 unspecified; Z20.822 Contact with and (suspected) exposure to COVID-19; E86.1 Hypovolemia; R74.01 Elevation of levels of liver transaminase levels; K76.1 Chronic passive congestion of liver; Z79.01 Long term (current) use of anticoagulants; Z79.899 Other long term (current) drug therapy; Z91.81 History of falling
CPT/HCPCS: 0241U; 36415; 71045; 74177; 74183; 76770; 80048; 80053; 81003; 82570; 83735; 83880; 84300; 84436; 84443; 84484; 85025; 85027; 86704; 86706; 86803; 87340; 93005; 93306; 96374; 97163; 97166; 99285; A9579; J1940; Q9967

== ENCOUNTER 2022-07-12 17:39 | Inpatient (IN) | payer MEDICARE, SELFPAY ==
[2022-06-28 13:38] VITALS: BMI 25.8
[2022-07-12] VITALS (28 sets, daily range): BP systolic 92–128; BP diastolic 57–83; PULSE 64–106; RESP 18–31; TEMP 36.5–36.9; O2SAT 76–98; BMI 25.7
--- NOTE | 2022-07-12 17:54 | DI.RAD.S_ITS ---
PROCEDURE: XR CHEST 1V INDICATIONS: chest pain TECHNIQUE: One view of the chest was acquired. COMPARISON: [facility], CR, XR CHEST 1V, 06/27/2022, 22:54. FINDINGS: Surgical changes and devices: None. Lungs and pleura: Bilateral irregular densities in to lower lung zones. Possible small right pleural effusion. No pneumothorax. Mediastinum: Mediastinal contours appear normal. Heart size is mildly increased. Prominent mitral annular calcification. Bones and chest wall: No suspicious bony lesions. Overlying soft tissues appear unremarkable. IMPRESSION: 1. Bilateral irregular densities probably pulmonary scars but superimposed pneumonia cannot be excluded. 2. Possible small right pleural effusion. 3. Mild cardiomegaly. Dictated by: Chema Gaines M.D. on 07/12/2022 at 18:29 Approved by: Chema Gaines M.D. on 07/12/2022 at 18:31
[2022-07-12 18:13] LABS: Add Manual Diff / Slide Review NO; Basophils Absolute Auto 0 /uL (0-100); Basophils Percent Auto 0.3 % (0-2); Eosinophils Absolute Auto 200 /uL (0-450); Eosinophils Percent Auto 2.2 % (2-4); Hematocrit 42.7 % (41-53); Hemoglobin 14.7 g/dL (13.5-17.5); Lymphocytes Absolute Auto 400 /uL (1100-4500); Lymphocytes Percent Auto 3.9 % (25-40); Mean Corpuscular HGB Conc 34.5 % (30-36); Mean Corpuscular Hemoglobin 35.6 PG (26-34); Mean Corpuscular Volume 103.2 fL (80-100); Monocytes Absolute Auto 400 /uL (0-900); Neutrophils Absolute Auto 8100 /uL (1500-7000); Neutrophils Percent Auto 89.6 % (50-75); Platelet Count 166 X10^3/uL (150-400); Red Blood Cell Count 4.13 X10^6/uL (4.5-5.9); Red Cell Distribution Width 15.3 % (11.6-14.8)
[2022-07-12 18:18] LABS: INR 3.4 (0.9-1.3); Prothrombin Time 39.3 SECONDS (10.1-12.7)
[2022-07-12 18:21] LABS: PTT Partial Thromboplastin Tim 38 SECONDS (26-36)
[2022-07-12 18:23] LABS: Alanine Aminotransferase 69 IU/L (<50); Albumin 3.6 g/dL (3.5-5.0); Albumin Globulin Ratio 1.2 (1.0-2.8); Alkaline Phosphatase 144 U/L (38-126); Aspartate Aminotransferase 75 IU/L (17-59); BUN Creatinine Ratio 16.4 (6-22); Bilirubin Total 2.5 mg/dL (0.2-1.3); Blood Urea Nitrogen 35 mg/dL (9-20); Calcium 8.2 mg/dL (8.4-10.2); Carbon Dioxide 29 mmol/L (22-32); Chloride 79 mmol/L (98-107); Creatine Kinase 212 U/L (55-170); Estimated Glomerular Filt Rate 29 mL/min (>60); Globulin 3.1 g/dL (1.7-4.1); Glucose 137 mg/dL (80-110); HEMOLYSIS < 15 (0-50); Lipase 171 U/L (23-300); Potassium 4.1 mmol/L (3.4-5.1); Sodium 120 mmol/L (137-145); Total Protein 6.7 g/dL (6.3-8.2)
[2022-07-12 18:28] LABS: COVID19 -Nasal RAPID Negative (Negative)
[2022-07-12 18:34] LABS: Troponin I 0.016 ng/mL (0.01-0.034)
[2022-07-12 18:38] LABS: CKMB % Relative Index 2.8 % (1.5-5.0); Creatine Kinase MB 5.93 ng/mL (<2.37)
[2022-07-12 18:40] LABS: Lactate (Lactic Acid) 2.3 mmol/L (0.7-2.1)
[2022-07-12 18:59] LABS: Procalcitonin 0.99 ng/mL (<0.5)
--- NOTE | 2022-07-12 19:08 | ED_ITS ---
HPI - Skin/Abscess/Foreign Bdy General Chief complaint: Skin/Abscess/Foreign Body Stated complaint: rash on back of both legs, heart issues Time Seen by Provider: 07/12/22 18:14 Source: patient Mode of arrival: Wheelchair Limitations: no limitations History of Present Illness HPI narrative: This is a 87-year-old male with known atrial fibrillation on Eliquis, hypothyroidism, CHF, dyslipidemia, and recent hospitalization with discharge on July 02 for hyponatremia with eric sodium of 117, CHF and was found at that time to have an EF of 55%, severe tricuspid regurgitation with trace pericardial effusion and severe biatrial enlargement and moderately dilated right ventricle. Patient presents today with redness kind of discomfort of the right lower extremity as well as bilateral lower extremity swelling and weeping from both legs. Patient states legs have been slowly swelling over the last several days. He denies any abdominal, back or flank pain. No GI or urinary symptoms. Patient denies fevers or chills. No chest pain or pressure. Small shortness of breath. Patient states he still has some brain fog which is what they appreciated when his sodium was particularly low. They state it is never really resolved patient follows with Dr. Fairbanks for cardiology through [facility] in [facility], Dr. Castillo for PCP. states that since his discharge his Bumex with decreased to 1 tablet daily was at 2 tablets daily. Medications are otherwise stable he is on lorazepam, simvastatin, Eliquis, Bumex, metoprolol and had a thyroid pill started during his hospitalization. No known drug allergies. No tobacco, occasional alcohol, no illicit. 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 He and I discussed goals of care he is DNR/DNI but open to medical management and therapy. Related Data Home Medications Medication Instructions Recorded Confirmed apixaban 5 mg tablet (Eliquis) 5 mg PO BID 06/28/22 07/12/22 bumetanide 1 mg tablet 1 mg PO BID 06/28/22 07/12/22 lorazepam 1 mg tablet 1 mg PO BEDTIME PRN Insomnia 06/28/22 07/12/22 metoprolol succinate 100 mg 100 mg PO BEDTIME 06/28/22 07/12/22 tablet,extended release 24 hr simvastatin 20 mg tablet 20 mg PO BEDTIME 06/28/22 07/12/22 Previous Rx's Medication Instructions Recorded levothyroxine 25 mcg capsule 25 mcg PO DAILY #30 caps 07/02/22 Allergies Allergy/AdvReac Type Severity Reaction Status Date / Time No Known Drug Allergies Allergy Verified 06/27/22 22:57 Review of Systems Review of Systems ROS Unobtainable: All systems reviewed & are unremarkable except as noted in HPI and below Patient History Medical History Congestive heart failure Hyperlipidemia Paroxysmal atrial fibrillation Surgical History No pertinent past surgical history Family History (Updated 07/13/22 @ 01:50 by KULWANT Joseph) Father No pertinent past medical history Mother No pertinent past medical history Social History household members: none Smoking Status: Never smoker alcohol intake: former Smoking Status: Never smoker alcohol intake frequency: 0-2 drinks per day Substance Use Type: does not use Exam Narrative Exam Narrative: GENERAL: Alert and oriented x three, elderly male mild distress. HEENT: Head normocephalic, atraumatic, EOMI, pupils reactive, face symmetric, moist mucous membranes NECK: Supple, full range of motion CARDIOVASCULAR: Irregularly irregular rate and rhythm without murmurs, rubs or gallops. Mild JVD. Bilateral lower extremity swelling with serosanguineous weeping from both legs with 2+ pitting edema RESPIRATORY: Breath sounds equal bilaterally, no wheezes rales or rhonchi. Mild crackles at bases. No tachypnea. Speaks in full sentences. ABDOMEN: Soft, nontender. Normoactive bowel sounds all 4 quadrants. No guarding or rebound, rigidity, no mass : No CVA tenderness EXTREMITIES: Normal range of motion. Neurovascularly intact. Patient has warmth, erythema circumferential but particularly intense on the posterior calf no abscess or fluid collection easily palpated. No purulent drainage. Areas proximally 8 cm in length by 10 cm around the lower right calf NEUROLOGICAL: Cranial nerves II through XII grossly intact. Moving all extremities SKIN: Warm, dry, no petechiae, no rashes or lesions. Initial Vital Signs Initial Vital Signs: Vital Signs Temperature 97.7 F 07/12/22 17:48 Pulse Rate 95 H 07/12/22 17:48 Respiratory Rate 18 07/12/22 17:48 Blood Pressure 104/57 L 07/12/22 17:48 Pulse Oximetry 98 07/12/22 17:48 Oxygen Delivery Method 07/12/22 17:48 Course Orders Ordered: Acetaminophen (Acetaminophen 325 Mg Tablet) 650 mg PO Q6H PRN PRN Reason: Fever/Mild Pain (1-3) Hydrocodone Bitart/Acetaminophen (Hydrocodone/Acet 5/325 Tablet) 1 tab PO Q4H PRN PRN Reason: Pain, Moderate (4-6) Apixaban (Apixaban 5 Mg Tablet) 5 mg PO BID [facility] Last Admin: 07/13/22 00:21 Dose: Not Given Documented By: AM Atorvastatin Calcium (Atorvastatin 20 Mg Tablet) 10 mg PO BEDTIME [facility] Ceftriaxone Sodium 1,000 mg/ (Sodium Chloride) 100 mls @ 200 mls/hr IV Q24H [facility] Last Infusion: 07/13/22 01:30 Dose: 0 mls/hr Documented By: Admin: 07/13/22 01:00 Dose: 200 mls/hr Documented By: AM Levothyroxine Sodium (Levothyroxine 25 Mcg Tablet) 25 mcg PO 0600 [facility] Last Admin: 07/13/22 06:24 Dose: 25 mcg Documented By: AM Lorazepam (Lorazepam 1 Mg Tablet) 1 mg PO BEDTIME PRN PRN Reason: Insomnia Last Admin: 07/13/22 01:00 Dose: 1 mg Documented By: AM Metoprolol Succinate (Metoprolol Er 50 Mg Tablet) 100 mg PO BEDTIME [facility] Naloxone HCl (Naloxone 0.4 Mg/Ml Vial) 0.2 mg IV Q2MIN PRN PRN Reason: Opiate Reversal Ondansetron HCl (Ondansetron 4 Mg/2 Ml Inj) 4 mg IV Q8HR PRN PRN Reason: Nausea And Vomiting Oxycodone HCl (Oxycodone Ir 10 Mg Tablet) 10 mg PO Q3H PRN PRN Reason: Pain, Severe (7-10) Sennosides (Sennosides 8.6 Mg Tablet) 17.2 mg PO BEDTIME [facility] Discontinued Medications Acetaminophen (Acetaminophen 325 Mg Tablet) 975 mg PO NOW ONE Stop: 07/12/22 21:43 Last Admin: 07/12/22 21:57 Dose: 975 mg Documented By: SB Aspirin (Aspirin 81 Mg Chew Tab) 324 mg PO NOW ONE Stop: 07/12/22 17:55 Last Admin: 07/12/22 19:04 Dose: Not Given Documented By: YORDAN Sodium Chloride (Normal Saline 0.9%) 500 mls @ 1,000 mls/hr IV BOLUS ONE Stop: 07/12/22 19:26 Last Infusion: 07/12/22 20:35 Dose: 0 mls/hr Documented By: Admin: 07/12/22 19:10 Dose: 1,000 mls/hr Documented By: MARIANA Clindamycin Phosphate (Cleocin) 900 mg in 50 mls @ 50 mls/hr IV NOW ONE Stop: 07/12/22 20:30 Last Infusion: 07/12/22 20:35 Dose: 0 mls/hr Documented By: Admin: 07/12/22 19:38 Dose: 50 mls/hr Documented By: MARIANA Vital Signs Vital signs: Vital Signs - 8 hr 07/12/22 17:48 07/12/22 18:12 07/12/22 18:30 Temperature 97.7 F Pulse Rate 95 H Respiratory Rate 18 Blood Pressure 104/57 L 101/62 101/62 Pulse Oximetry 98 Oxygen Delivery Method Room Air 07/12/22 18:30 Temperature Pulse Rate 93 H Respiratory Rate 20 Blood Pressure Pulse Oximetry 97 Oxygen Delivery Method Room Air MDM - Skin/Abscess/Foreign Bdy Lab Data 07/12/22 18:00 07/12/22 18:00 Labs: Lab Results 07/12/22 07/12/22 07/12/22 Range/Units 18:00 18:00 18:00 WBC 9.0 (4.5-11.0) X10^3/uL RBC 4.13 L (4.5-5.9) X10^6/uL Hgb 14.7 (13.5-17.5) g/dL Hct 42.7 (41-53) % MCV 103.2 H (80-100) fL MCH 35.6 H (26-34) PG MCHC 34.5 (30-36) % RDW 15.3 H (11.6-14.8) % Plt Count 166 (150-400) X10^3/uL Neut % (Auto) 89.6 H (50-75) % Lymph % (Auto) 3.9 L (25-40) % [place] % (Auto) 4.0 (3-14) % Eos % (Auto) 2.2 (2-4) % Baso % (Auto) 0.3 (0-2) % Neut # (Auto) 8100 H (8866-1997) /uL Lymph # (Auto) 400 L (8840-9906) /uL [place] # (Auto) 400 (0-900) /uL Eos # (Auto) 200 (0-450) /uL Baso # (Auto) 0 (0-100) /uL PT 39.3 H (10.1-12.7) SECONDS INR 3.4 H (0.9-1.3) APTT 38 H (26-36) SECONDS Sodium 120 L (137-145) mmol/L Potassium 4.1 (3.4-5.1) mmol/L Chloride 79 L (98-107) mmol/L Carbon Dioxide 29 (22-32) mmol/L BUN 35 H (9-20) mg/dL Creatinine 2.13 H (0.66-1.25) mg/dL Estimated GFR 29 L (>60) mL/min BUN/Creatinine Ratio 16.4 (6-22) Glucose 137 H (80-110) mg/dL Lactate (0.7-2.1) mmol/L Calcium 8.2 L (8.4-10.2) mg/dL Magnesium 2.0 (1.6-2.3) mg/dL Total Bilirubin 2.5 H (0.2-1.3) mg/dL AST 75 H (17-59) IU/L ALT 69 H (<50) IU/L Alkaline Phosphatase 144 H (38-126) U/L Total Creatine Kinase 212 H (55-170) U/L CK-MB (CK-2) 5.93 H (<2.37) ng/mL CK-MB (CK-2) Rel Index 2.8 (1.5-5.0) % Troponin I 0.016 (0.01-0.034) ng/mL NT-Pro-B Natriuret Pep (<450) pg/mL Total Protein 6.7 (6.3-8.2) g/dL Albumin 3.6 (3.5-5.0) g/dL Globulin 3.1 (1.7-4.1) g/dL Albumin/Globulin Ratio 1.2 (1.0-2.8) Lipase 171 (23-300) U/L Procalcitonin (<0.5) ng/mL Urine Color Urine Appearance Urine pH (4.5-8.0) Ur Specific [place] (1.000-1.035) Urine Protein (Negative) Urine Glucose (UA) (Negative) g/dL Urine Ketones (NEGATIVE) Urine Occult Blood (Negative) Urine Nitrate (Negative) Urine Bilirubin (NEGATIVE) Urine Urobilinogen (0.2) E.U./dL Ur Leukocyte Esterase (NEGATIVE) Urine RBC (0-5/HPF) Urine WBC (0-5/HPF) Ur Squamous Epith Cells (0-5/HPF) Amorphous Sediment Urine Bacteria (None) Urine Mucus (Negative) Ur Culture Indicated? Ur Random Sodium (30-90) mmol/L Urine Creatinine mg/dL SARS-CoV-2 (PCR) (Negative) 07/12/22 07/12/22 07/12/22 Range/Units 18:00 18:00 18:00 WBC (4.5-11.0) X10^3/uL RBC (4.5-5.9) X10^6/uL Hgb (13.5-17.5) g/dL Hct (41-53) % MCV (80-100) fL MCH (26-34) PG MCHC (30-36) % RDW (11.6-14.8) % Plt Count (150-400) X10^3/uL Neut % (Auto) (50-75) % Lymph % (Auto) (25-40) % [place] % (Auto) (3-14) % Eos % (Auto) (2-4) % Baso % (Auto) (0-2) % Neut # (Auto) (1910-3733) /uL Lymph # (Auto) (6644-4913) /uL [place] # (Auto) (0-900) /uL Eos # (Auto) (0-450) /uL Baso # (Auto) (0-100) /uL PT (10.1-12.7) SECONDS INR (0.9-1.3) APTT (26-36) SECONDS Sodium (137-145) mmol/L Potassium (3.4-5.1) mmol/L Chloride (98-107) mmol/L Carbon Dioxide (22-32) mmol/L BUN (9-20) mg/dL Creatinine (0.66-1.25) mg/dL Estimated GFR (>60) mL/min BUN/Creatinine Ratio (6-22) Glucose (80-110) mg/dL Lactate 2.3 H (0.7-2.1) mmol/L Calcium (8.4-10.2) mg/dL Magnesium (1.6-2.3) mg/dL Total Bilirubin (0.2-1.3) mg/dL AST (17-59) IU/L ALT (<50) IU/L Alkaline Phosphatase (38-126) U/L Total Creatine Kinase (55-170) U/L CK-MB (CK-2) (<2.37) ng/mL CK-MB (CK-2) Rel Index (1.5-5.0) % Troponin I (0.01-0.034) ng/mL NT-Pro-B Natriuret Pep 3400 H (<450) pg/mL Total Protein (6.3-8.2) g/dL Albumin (3.5-5.0) g/dL Globulin (1.7-4.1) g/dL Albumin/Globulin Ratio (1.0-2.8) Lipase (23-300) U/L Procalcitonin 0.99 H (<0.5) ng/mL Urine Color Urine Appearance Urine pH (4.5-8.0) Ur Specific [place] (1.000-1.035) Urine Protein (Negative) Urine Glucose (UA) (Negative) g/dL Urine Ketones (NEGATIVE) Urine Occult Blood (Negative) Urine Nitrate (Negative) Urine Bilirubin (NEGATIVE) Urine Urobilinogen (0.2) E.U./dL Ur Leukocyte Esterase (NEGATIVE) Urine RBC (0-5/HPF) Urine WBC (0-5/HPF) Ur Squamous Epith Cells (0-5/HPF) Amorphous Sediment Urine Bacteria (None) Urine Mucus (Negative) Ur Culture Indicated? Ur Random Sodium (30-90) mmol/L Urine Creatinine mg/dL SARS-CoV-2 (PCR) (Negative) 07/12/22 07/12/22 07/12/22 Range/Units 18:09 19:10 19:14 WBC (4.5-11.0) X10^3/uL RBC (4.5-5.9) X10^6/uL Hgb (13.5-17.5) g/dL Hct (41-53) % MCV (80-100) fL MCH (26-34) PG MCHC (30-36) % RDW (11.6-14.8) % Plt Count (150-400) X10^3/uL Neut % (Auto) (50-75) % Lymph % (Auto) (25-40) % [place] % (Auto) (3-14) % Eos % (Auto) (2-4) % Baso % (Auto) (0-2) % Neut # (Auto) (5158-4629) /uL Lymph # (Auto) (4395-0479) /uL [place] # (Auto) (0-900) /uL Eos # (Auto) (0-450) /uL Baso # (Auto) (0-100) /uL PT (10.1-12.7) SECONDS INR (0.9-1.3) APTT (26-36) SECONDS Sodium (137-145) mmol/L Potassium (3.4-5.1) mmol/L Chloride (98-107) mmol/L Carbon Dioxide (22-32) mmol/L BUN (9-20) mg/dL Creatinine (0.66-1.25) mg/dL Estimated GFR (>60) mL/min BUN/Creatinine Ratio (6-22) Glucose (80-110) mg/dL Lactate (0.7-2.1) mmol/L Calcium (8.4-10.2) mg/dL Magnesium (1.6-2.3) mg/dL Total Bilirubin (0.2-1.3) mg/dL AST (17-59) IU/L ALT (<50) IU/L Alkaline Phosphatase (38-126) U/L Total Creatine Kinase (55-170) U/L CK-MB (CK-2) (<2.37) ng/mL CK-MB (CK-2) Rel Index (1.5-5.0) % Troponin I (0.01-0.034) ng/mL NT-Pro-B Natriuret Pep (<450) pg/mL Total Protein (6.3-8.2) g/dL Albumin (3.5-5.0) g/dL Globulin (1.7-4.1) g/dL Albumin/Globulin Ratio (1.0-2.8) Lipase (23-300) U/L Procalcitonin (<0.5) ng/mL Urine Color Yellow Urine Appearance Clear Urine pH 5.0 (4.5-8.0) Ur Specific [place] 1.015 (1.000-1.035) Urine Protein Negative (Negative) Urine Glucose (UA) Negative (Negative) g/dL Urine Ketones Negative (NEGATIVE) Urine Occult Blood Negative (Negative) Urine Nitrate Negative (Negative) Urine Bilirubin Negative (NEGATIVE) Urine Urobilinogen 1.0 (0.2) E.U./dL Ur Leukocyte Esterase Negative (NEGATIVE) Urine RBC None seen (0-5/HPF) Urine WBC 0-1/hpf (0-5/HPF) Ur Squamous Epith Cells 0-1 /hpf (0-5/HPF) Amorphous Sediment 1+ Urine Bacteria None seen (None) Urine Mucus 1+ H (Negative) Ur Culture Indicated? Cult not indicated Ur Random Sodium < 5 L (30-90) mmol/L Urine Creatinine 105.0 mg/dL SARS-CoV-2 (PCR) Negative (Negative) 07/12/22 Range/Units 21:30 WBC (4.5-11.0) X10^3/uL RBC (4.5-5.9) X10^6/uL Hgb (13.5-17.5) g/dL Hct (41-53) % MCV (80-100) fL MCH (26-34) PG MCHC (30-36) % RDW (11.6-14.8) % Plt Count (150-400) X10^3/uL Neut % (Auto) (50-75) % Lymph % (Auto) (25-40) % [place] % (Auto) (3-14) % Eos % (Auto) (2-4) % Baso % (Auto) (0-2) % Neut # (Auto) (5710-2459) /uL Lymph # (Auto) (6245-0474) /uL [place] # (Auto) (0-900) /uL Eos # (Auto) (0-450) /uL Baso # (Auto) (0-100) /uL PT (10.1-12.7) SECONDS INR (0.9-1.3) APTT (26-36) SECONDS Sodium (137-145) mmol/L Potassium (3.4-5.1) mmol/L Chloride (98-107) mmol/L Carbon Dioxide (22-32) mmol/L BUN (9-20) mg/dL Creatinine (0.66-1.25) mg/dL Estimated GFR (>60) mL/min BUN/Creatinine Ratio (6-22) Glucose (80-110) mg/dL Lactate 2.5 H (0.7-2.1) mmol/L Calcium (8.4-10.2) mg/dL Magnesium (1.6-2.3) mg/dL Total Bilirubin (0.2-1.3) mg/dL AST (17-59) IU/L ALT (<50) IU/L Alkaline Phosphatase (38-126) U/L Total Creatine Kinase (55-170) U/L CK-MB (CK-2) (<2.37) ng/mL CK-MB (CK-2) Rel Index (1.5-5.0) % Troponin I (0.01-0.034) ng/mL NT-Pro-B Natriuret Pep (<450) pg/mL Total Protein (6.3-8.2) g/dL Albumin (3.5-5.0) g/dL Globulin (1.7-4.1) g/dL Albumin/Globulin Ratio (1.0-2.8) Lipase (23-300) U/L Procalcitonin (<0.5) ng/mL Urine Color Urine Appearance Urine pH (4.5-8.0) Ur Specific [place] (1.000-1.035) Urine Protein (Negative) Urine Glucose (UA) (Negative) g/dL Urine Ketones (NEGATIVE) Urine Occult Blood (Negative) Urine Nitrate (Negative) Urine Bilirubin (NEGATIVE) Urine Urobilinogen (0.2) E.U./dL Ur Leukocyte Esterase (NEGATIVE) Urine RBC (0-5/HPF) Urine WBC (0-5/HPF) Ur Squamous Epith Cells (0-5/HPF) Amorphous Sediment Urine Bacteria (None) Urine Mucus (Negative) Ur Culture Indicated? Ur Random Sodium (30-90) mmol/L Urine Creatinine mg/dL SARS-CoV-2 (PCR) (Negative) Imaging Data Chest x-ray: Radiologist's Impression: Bilateral regular densities probably pulmonary scars but superimposed pneumonia can not be excluded. Possible small right pleural effusion. Mild cardiomegaly. ECG Data Attestation: I personally reviewed and interpreted this ECG as follows: Interpretation: AFib rate 88 QRS 88, QTC of 486. Nonspecific ST change. Treatment and disposition Code Status and discussions:: DNR/DNI, patient is open to medical interventions if available. Patient agreeable to transfer if needed but prefers to stay locally MDM Narrative Medical decision making narrative: 87-year-old male with known AFib, anticoagulated, known valvular disease, CHF with recent hyponatremia which appears to have worsened, he had improved to 131, he is 120 today on sodium chloride 79, potassium 4 1 renal function has worsened with a creatinine of 2.13, INR is 3.4, white count 9 with a hemoglobin of 14 platelets of 166. Lactate 2.3 with total bilirubin 2.5 AST 75 and ALT 69, alk- phos of 144 these are actually improved bilirubin which was in the 3 range on prior hospitalization. Troponin today is 0.016. BNP is elevated. Procalcitonin is elevated suspect this is related to cellulitis in his right lower extremity, urine with negative. Chest x-ray shows questionable pneumonia but he clearly has a source of infection in his leg. Patient has a mildly hypotensive. Was given minimal fluids as he is clearly fluid overloaded as well although he does have acute kidney injury but is supposed to also be fluid restricted secondary to his hypernatremia which was felt to be secondary to hypovolemic hyponatremia and has been on fluid restriction. Suspect with his recent hospitalization and diuresis this also contributed to his renal function but hepatorenal syndrome is also part of the differential. Patient is started was started on clindamycin for MRSA coverage. Patient given small fluid bolus. Pain medication. I spoke with his cardiology team, Dr. Arellano through [facility] he does not feel patient would warrant transfer at this time. He states it would be no interventional procedures performed. He does not feel patient needs to be placed on Milrinone at this time. He recommends treating infection, monitoring fluids, diuresis and discussion surrounding goals of care. Spoke with KULWANT Moya who accepts for hospitalist service. Plan for inpatient admission. Discharge Plan Departure Patient Disposition: Admitted As Inpatient Clinical Impression: Acute on chronic systolic CHF (congestive heart failure), Acute hyponatremia, Cellulitis, STONE (acute kidney injury) Admit Date/Time: 07/12/22 22:12 Admit Provider: Jeaneth Moya
[2022-07-12] MEDS: SODIUM CHLORIDE 0.9% 500 ML 1000 ML IV (19:10)
[2022-07-12 19:20] LABS: Appearance Urine UA CLEAR; Bilirubin Urine UA NEGATIVE (NEGATIVE); Color Urine UA YELLOW; Glucose Urine UA NEGATIVE (Negative); Ketones Urine UA NEGATIVE (NEGATIVE); Leukocyte Esterase Urine UA NEGATIVE (NEGATIVE); Nitrite Urine UA NEGATIVE (Negative); Occult Blood Urine UA NEGATIVE (Negative); Protein Urine UA NEGATIVE (Negative); Specific Gravity Urine UA 1.015 (1.000-1.035)
[2022-07-12 19:21] LABS: NT-proBNP (BNP-Adult 18+) 3400 pg/mL (<450)
[2022-07-12 19:23] LABS: Amorphous Sediment Urine 1+; Bacteria Urine None Seen; Culture Indicated Urine Cult Not Indicated; Mucus Urine 1+ (Negative); RBC Urine None Seen (0-5/HPF); Squamous Epithelial Cell Urine 0-1 /HPF (0-5/HPF); WBC Urine 0-1/HPF (0-5/HPF)
[2022-07-12] MEDS: CLINDAMYCIN 900 MG/50 ML PIGGYBACK 50 MG IV (19:38)
[2022-07-12 19:39] LABS: Sodium Urine Random < 5 mmol/L (30-90)
[2022-07-12 20:33] LABS: Reflexed Lactate in 2 Hours Y
[2022-07-12 21:48] LABS: Lactate 2HR (Lactic Acid Rflx) 2.5 mmol/L (0.7-2.1)
[2022-07-12] MEDS: ACETAMINOPHEN 325 MG TABLET 975 MG PO (21:57)
--- NOTE | 2022-07-12 22:42 | P.HP_ITS ---
History of Present Illness History of Present Illness Date Patient Seen: 07/13/22 Time Patient Seen: 00:24 Chief complaint: rash on back of both legs, heart issues Narrative: Michael Woodson is an 87-year-old male with newly diagnosed atrial fibrillation presented to the emergency department with a 3-4 day history of pedal edema, and ulcerations on the back of both legs. He had very sudden onset foot swelling and weeping of his legs to the point it stained his clothing. He states he does not feel palpitations or chest pain, he denies nausea or vomiting, abdominal pain, dysuria, diarrhea or constipation. And was recently seen in hospitalized for undiagnosed atrial fibrillation, CHF and was discharged on the 04 of July. Chest x-ray ordered in the ED indicated possible pulmonary scarring versus superimposed pneumonia and a possible right pleural effusion. He was administered a 1 time dose of IV clindamycin for the lower leg cellulitis. Currently he is afebrile, his blood pressure is 97/62 heart rate 87 respiratory rate 19 oxygen saturation 96% on room air he weighs 84.5 kg with a BMI of 26.7. CBC is unremarkable, his INR is 3.4 sodium 120 chloride 79 BUN 35 creatinine 2.13 with an EGFR of 29 glucose 137 lactate is 2.5 calcium 8.2 T bili 2.5 AST 75 ALT 69 alk-phos 144 creatinine kinase is 212 proBNP is 3400 procalcitonin is 0.99 urine is negative for a UTI, urine sodium is less than 5 and his urine creatinine is 105 with a 0.1% chance of prerenal. COVID-19 PCR is negative. Echo, 06/28/22: The patient was in atrial fibrillation with heart rates between 85-105 bpm during the exam. Normal left ventricle size with ejection fraction 55-60%. Moderately dilated right ventricle with normal right ventricular systolic function. Severe biatrial enlargement. The aortic valve is mildly calcified. Mild to moderate aortic regurgitation. Moderate mitral annular calcification. Moderate mitral regurgitation. The tricuspid annulus is dilated. Severe tricuspid regurgitation. Patient History Medical History Congestive heart failure Hyperlipidemia Paroxysmal atrial fibrillation Surgical History No pertinent past surgical history Family & Social History Family History (Updated 07/13/22 @ 01:50 by KULWANT Joseph) Father No pertinent past medical history Mother No pertinent past medical history Social History: household members none Safety & Behavioral: Feels Safe in Current Yes Environment Been Physically Hurt or No Threatened By a Person Tobacco & Substance use: Smoking Status Never smoker alcohol intake frequency 0-2 drinks per day Substance Use Type does not use Meds Home Medications and Allergies Home Medications Medication Instructions Recorded Confirmed Type apixaban 5 mg tablet (Eliquis) 5 mg PO BID 06/28/22 07/12/22 History bumetanide 1 mg tablet 1 mg PO BID 06/28/22 07/12/22 History lorazepam 1 mg tablet 1 mg PO BEDTIME PRN Insomnia 06/28/22 07/12/22 History metoprolol succinate 100 mg 100 mg PO BEDTIME 06/28/22 07/12/22 History tablet,extended release 24 hr simvastatin 20 mg tablet 20 mg PO BEDTIME 06/28/22 07/12/22 History levothyroxine 25 mcg capsule 25 mcg PO DAILY #30 caps 07/02/22 07/12/22 Rx Allergies Allergy/AdvReac Type Severity Reaction Status Date / Time No Known Drug Allergies Allergy Verified 06/27/22 22:57 Review of Systems Review of Systems ROS: Yes All systems reviewed with the patient and are negative except as otherwise documented Exam Vital Signs (past 8 hours): - 07/12/22 17:48 07/12/22 18:12 07/12/22 18:30 Temperature 97.7 F Pulse Rate 95 H Respiratory Rate 18 Blood Pressure 104/57 L 101/62 101/62 Pulse Oximetry 98 Oxygen Delivery Method Room Air 07/12/22 18:30 07/12/22 18:39 07/12/22 18:39 Temperature Pulse Rate 93 H 91 H Respiratory Rate 20 Blood Pressure 110/64 Pulse Oximetry 97 97 Oxygen Delivery Method Room Air 07/12/22 18:45 07/12/22 18:46 07/12/22 18:46 Temperature Pulse Rate 91 H 91 H Respiratory Rate Blood Pressure 124/67 Pulse Oximetry 98 98 Oxygen Delivery Method 07/12/22 19:07 07/12/22 19:08 07/12/22 19:08 Temperature Pulse Rate 83 99 H Respiratory Rate 22 Blood Pressure 117/83 Pulse Oximetry Oxygen Delivery Method 07/12/22 19:15 07/12/22 19:15 07/12/22 19:30 Temperature Pulse Rate 97 H Respiratory Rate Blood Pressure 105/76 128/79 Pulse Oximetry Oxygen Delivery Method 07/12/22 19:30 07/12/22 19:45 07/12/22 19:45 Temperature Pulse Rate 99 H 100 H Respiratory Rate 30 H 27 H Blood Pressure 113/69 Pulse Oximetry 80 L 92 Oxygen Delivery Method 07/12/22 20:00 07/12/22 20:15 07/12/22 20:30 Temperature Pulse Rate 64 96 H 100 H Respiratory Rate 24 31 H Blood Pressure Pulse Oximetry 78 L 76 L 78 L Oxygen Delivery Method 07/12/22 20:45 07/12/22 20:45 07/12/22 21:00 Temperature Pulse Rate 92 H Respiratory Rate 24 Blood Pressure 102/68 103/64 Pulse Oximetry 96 Oxygen Delivery Method 07/12/22 21:00 07/12/22 21:15 07/12/22 21:15 Temperature Pulse Rate 96 H 98 H Respiratory Rate 22 23 Blood Pressure 100/67 Pulse Oximetry 98 96 Oxygen Delivery Method 07/12/22 21:30 07/12/22 21:30 07/12/22 21:45 Temperature Pulse Rate 94 H Respiratory Rate Blood Pressure 106/66 96/61 Pulse Oximetry 96 Oxygen Delivery Method 07/12/22 21:45 Temperature Pulse Rate 97 H Respiratory Rate Blood Pressure Pulse Oximetry 97 Oxygen Delivery Method Oxygen Delivery Method Room Air Narrative Exam Narrative: Gen: Alert, oriented, well-developed 89 y.o. male, NAD HEENT: normocephalic, atraumatic, conjunctiva clear, sclera non-icteric, oral mucosa pink and moist Neck: supple, full ROM, no JVD, trachea is midline Resp: Lungs CTA, non-labored breathing CV: RRR, no murmur or rubs Abd: soft, non-tender, normoactive BTs Skin: +2 pitting edema, appears to have venous stasis worse on right, weepy, with skin tears and minimal bleeding posterior calfs, right worse than left. Neuro: Alert and oriented X 4 w/no focal deficits. Speech clear and coherent. Extremities: moves all 4 extremities, is ambulatory, negative Sinan?s sign Psyche: normal mood and affect. Objective Labs 07/12/22 18:00 07/12/22 18:00 Labs: Laboratory Results - last 24 hr 07/12/22 07/12/22 07/12/22 18:00 18:00 18:00 WBC 9.0 RBC 4.13 L Hgb 14.7 Hct 42.7 MCV 103.2 H MCH 35.6 H MCHC 34.5 RDW 15.3 H Plt Count 166 Neut % (Auto) 89.6 H Lymph % (Auto) 3.9 L Cocke % (Auto) 4.0 Eos % (Auto) 2.2 Baso % (Auto) 0.3 Neut # (Auto) 8100 H Lymph # (Auto) 400 L Cocke # (Auto) 400 Eos # (Auto) 200 Baso # (Auto) 0 PT 39.3 H INR 3.4 H APTT 38 H Sodium 120 L Potassium 4.1 Chloride 79 L Carbon Dioxide 29 BUN 35 H Creatinine 2.13 H Estimated GFR 29 L BUN/Creatinine Ratio 16.4 Glucose 137 H Lactate Calcium 8.2 L Magnesium 2.0 Total Bilirubin 2.5 H AST 75 H ALT 69 H Alkaline Phosphatase 144 H Total Creatine Kinase 212 H CK-MB (CK-2) 5.93 H CK-MB (CK-2) Rel Index 2.8 Troponin I 0.016 NT-Pro-B Natriuret Pep Total Protein 6.7 Albumin 3.6 Globulin 3.1 Albumin/Globulin Ratio 1.2 Lipase 171 Procalcitonin Urine Color Urine Appearance Urine pH Ur Specific [place] Urine Protein Urine Glucose (UA) Urine Ketones Urine Occult Blood Urine Nitrate Urine Bilirubin Urine Urobilinogen Ur Leukocyte Esterase Urine RBC Urine WBC Ur Squamous Epith Cells Amorphous Sediment Urine Bacteria Urine Mucus Ur Culture Indicated? Ur Random Sodium Urine Creatinine SARS-CoV-2 (PCR) 07/12/22 07/12/22 07/12/22 18:00 18:00 18:00 WBC RBC Hgb Hct MCV MCH MCHC RDW Plt Count Neut % (Auto) Lymph % (Auto) Cocke % (Auto) Eos % (Auto) Baso % (Auto) Neut # (Auto) Lymph # (Auto) Cocke # (Auto) Eos # (Auto) Baso # (Auto) PT INR APTT Sodium Potassium Chloride Carbon Dioxide BUN Creatinine Estimated GFR BUN/Creatinine Ratio Glucose Lactate 2.3 H Calcium Magnesium Total Bilirubin AST ALT Alkaline Phosphatase Total Creatine Kinase CK-MB (CK-2) CK-MB (CK-2) Rel Index Troponin I NT-Pro-B Natriuret Pep 3400 H Total Protein Albumin Globulin Albumin/Globulin Ratio Lipase Procalcitonin 0.99 H Urine Color Urine Appearance Urine pH Ur Specific [place] Urine Protein Urine Glucose (UA) Urine Ketones Urine Occult Blood Urine Nitrate Urine Bilirubin Urine Urobilinogen Ur Leukocyte Esterase Urine RBC Urine WBC Ur Squamous Epith Cells Amorphous Sediment Urine Bacteria Urine Mucus Ur Culture Indicated? Ur Random Sodium Urine Creatinine SARS-CoV-2 (PCR) 07/12/22 07/12/22 07/12/22 18:09 19:10 19:14 WBC RBC Hgb Hct MCV MCH MCHC RDW Plt Count Neut % (Auto) Lymph % (Auto) Cocke % (Auto) Eos % (Auto) Baso % (Auto) Neut # (Auto) Lymph # (Auto) Cocke # (Auto) Eos # (Auto) Baso # (Auto) PT INR APTT Sodium Potassium Chloride Carbon Dioxide BUN Creatinine Estimated GFR BUN/Creatinine Ratio Glucose Lactate Calcium Magnesium Total Bilirubin AST ALT Alkaline Phosphatase Total Creatine Kinase CK-MB (CK-2) CK-MB (CK-2) Rel Index Troponin I NT-Pro-B Natriuret Pep Total Protein Albumin Globulin Albumin/Globulin Ratio Lipase Procalcitonin Urine Color Yellow Urine Appearance Clear Urine pH 5.0 Ur Specific [place] 1.015 Urine Protein Negative Urine Glucose (UA) Negative Urine Ketones Negative Urine Occult Blood Negative Urine Nitrate Negative Urine Bilirubin Negative Urine Urobilinogen 1.0 Ur Leukocyte Esterase Negative Urine RBC None seen Urine WBC 0-1/hpf Ur Squamous Epith Cells 0-1 /hpf Amorphous Sediment 1+ Urine Bacteria None seen Urine Mucus 1+ H Ur Culture Indicated? Cult not indicated Ur Random Sodium < 5 L Urine Creatinine 105.0 SARS-CoV-2 (PCR) Negative 07/12/22 21:30 WBC RBC Hgb Hct MCV MCH MCHC RDW Plt Count Neut % (Auto) Lymph % (Auto) Cocke % (Auto) Eos % (Auto) Baso % (Auto) Neut # (Auto) Lymph # (Auto) Cocke # (Auto) Eos # (Auto) Baso # (Auto) PT INR APTT Sodium Potassium Chloride Carbon Dioxide BUN Creatinine Estimated GFR BUN/Creatinine Ratio Glucose Lactate 2.5 H Calcium Magnesium Total Bilirubin AST ALT Alkaline Phosphatase Total Creatine Kinase CK-MB (CK-2) CK-MB (CK-2) Rel Index Troponin I NT-Pro-B Natriuret Pep Total Protein Albumin Globulin Albumin/Globulin Ratio Lipase Procalcitonin Urine Color Urine Appearance Urine pH Ur Specific [place] Urine Protein Urine Glucose (UA) Urine Ketones Urine Occult Blood Urine Nitrate Urine Bilirubin Urine Urobilinogen Ur Leukocyte Esterase Urine RBC Urine WBC Ur Squamous Epith Cells Amorphous Sediment Urine Bacteria Urine Mucus Ur Culture Indicated? Ur Random Sodium Urine Creatinine SARS-CoV-2 (PCR) Assessment & Plan Assessment & Plan narrative: Michael Woodson is admitted for a bilateral lower leg cellulitis and an STONE. Bilateral lower leg cellulitis likely secondary to edema associated with CHF and atrial fibrillation, acute, present on admission * He appears to have had venous stasis ulcers that have now become infected * He was started on IV ceftriaxone today and this will be continued * Consider IV Lasix however it may be contraindicated in the setting of his STONE Atrial fibrillation newly diagnosed * Cardiac monitoring * Continue anticoagulation with home dose of apixaban 5 mg p.o. b.i.d. * Rate control with home dose of metoprolol succinate 100 mg p.o. at bedtime CAD, chronic * Continue simvastatin 20 mg p.o. at bedtime Hypothyroidism, chronic * Continue home dose of levothyroxine 25 mcg p.o. daily Acute kidney injury likely superimposed on chronic kidney disease * Patient had a renal ultrasound on June 28 and this will be repeated * He may need referral to a supervisor of guidance and testing Other independent historians: none Discussion of results, plan of care with independent HCP/other: ED provider Reviewed outside records: Echo, former renal u/s VTE Prophylaxis: Wells risk score 0 X Patient is currently anticoagulated on apixaban. Patient is admitted to the inpatient service due to the severity of disease, risks of further disease progression and this stay is expected to exceed 2 midnights. FEN: IV fluids: saline lock, diet: heart healthy, labs: CBC, C/BMP, liver enzymes, Mag, PT/INR Consultants None Social determinants of health: none Dispo: probable d/c to home Code status: DNR/DNI as discussed with the patient who identifies current life partner as his surrogate and POA. [X] I have utilized all available immediate resources to obtain, update, or review of the patient's current medications VTE Deep Vein Thrombosis/Pulmonary Embolism Present on Admission: No MIPS - Admit I confirm the patient?s Advance Care Plan is present, Code status is documented, Surrogate decision maker is in patient?s record: Yes MIPS - DC The patient has current or prior documentation of left ventricular ejection fraction (LVEF) less than 40%, or moderate or severely depressed left ventricular systolic function.: No COVID-19 COVID-19 status: Negative Result date/Date tested (Pos, Neg/Pending): 07/13/22 Time Spent With Patient Critical Care time: I spent a total of [] minutes of critical care time on this patient's care today; this time is exclusive of procedural time.
[2022-07-13 00:13] VITALS: BMI 26.7
[2022-07-13] MEDS: cefTRIAXone 1,000 MG in SODIUM CHLORIDE 0.9% 100 ML 200 MG IV ×2 (01:00→23:56)
[2022-07-13] MEDS: LORazepam 1 MG TABLET PO ×2 (01:00→23:56)
[2022-07-13 03:00] VITALS: BP 90/52; PULSE 92; RESP 21; TEMP 36.4; O2SAT 97
[2022-07-13] MEDS: LEVOTHYROXINE 25 MCG TABLET PO (06:24)
[2022-07-13 06:52] LABS: Alanine Aminotransferase 71 IU/L (<50); Albumin 3.1 g/dL (3.5-5.0); Albumin Globulin Ratio 1.1 (1.0-2.8); Alkaline Phosphatase 173 U/L (38-126); Aspartate Aminotransferase 89 IU/L (17-59); BUN Creatinine Ratio 17.9 (6-22); Bilirubin Total 2.9 mg/dL (0.2-1.3); Blood Urea Nitrogen 38 mg/dL (9-20); Calcium 8.1 mg/dL (8.4-10.2); Carbon Dioxide 25 mmol/L (22-32); Chloride 84 mmol/L (98-107); Estimated Glomerular Filt Rate 30 mL/min (>60); Globulin 2.8 g/dL (1.7-4.1); Glucose 82 mg/dL (80-110); HEMOLYSIS 18 (0-50); Potassium 4.1 mmol/L (3.4-5.1); Sodium 121 mmol/L (137-145); Total Protein 5.9 g/dL (6.3-8.2)
[2022-07-13 06:53] LABS: Add Manual Diff / Slide Review NO; Basophils Absolute Auto 0 /uL (0-100); Basophils Percent Auto 0.3 % (0-2); Eosinophils Absolute Auto 300 /uL (0-450); Hematocrit 44.9 % (41-53); Hemoglobin 15.2 g/dL (13.5-17.5); Lymphocytes Absolute Auto 200 /uL (1100-4500); Mean Corpuscular HGB Conc 33.8 % (30-36); Mean Corpuscular Hemoglobin 35.1 PG (26-34); Mean Corpuscular Volume 103.8 fL (80-100); Monocytes Absolute Auto 200 /uL (0-900); Monocytes Percent Auto 2.6 % (3-14); Neutrophils Absolute Auto 8800 /uL (1500-7000); Neutrophils Percent Auto 92.1 % (50-75); Platelet Count 135 X10^3/uL (150-400); Red Blood Cell Count 4.33 X10^6/uL (4.5-5.9); Red Cell Distribution Width 15.8 % (11.6-14.8); White Blood Cell Count 9.6 X10^3/uL (4.5-11.0)
[2022-07-13 07:00] VITALS: BP 91/66; PULSE 64; RESP 20; TEMP 36.2; O2SAT 97
--- NOTE | 2022-07-13 09:00 | DI.US.S_ITS ---
PROCEDURE: US RENAL COMPLETE INDICATIONS: STONE TECHNIQUE: Real-time scanning was performed of the kidneys and bladder, with image documentation. COMPARISON: [facility], , RENAL COMPLETE, 06/29/2022, 7:28. FINDINGS: Kidneys: Kidneys are normal in size. Right kidney measures 10.9 cm long; left kidney measures 11.1 cm long. Right renal cortical thickness is 1.4 cm; left renal cortical thickness is 1.6 cm. Renal cortical echotexture is normal. No hydronephrosis or nephrolithiasis. No suspicious solid mass lesions. Bladder: Pre-void bladder volume is 218 mL. Post-void residual is 76 mL. Pre-void images demonstrate no intraluminal masses or stones. There is irregular wall thickening of the bladder. On pre-void images, right jet not visualized in the left jet is visualized ureteral jets are noted with color Doppler interrogation. (Of note, ureteral jets may not be detectable in up to 25% of cases due to insufficient differences in specific gravity between ureteral and bladder urine). Miscellaneous: No free pelvic fluid. IMPRESSION: 1. No hydronephrosis. 2. Irregular wall thickening of the urinary bladder, presumably trabeculation from chronic outlet obstruction. Correlate with hematuria. If positive, consider cystoscopy to exclude mass. Dictated by: Corbin Sommers M.D. on 07/13/2022 at 9:25 Approved by: Corbin Sommers M.D. on 07/13/2022 at 9:28
[2022-07-13] MEDS: APIXABAN 5 MG TABLET PO (09:24)
--- NOTE | 2022-07-13 10:03 | PC.NURSE ---
Patient is alert and oriented x2, he seems to be confused about his medications and when talking to his at beside. Patient has 3+ edema to his lower extremities and they are wheeping. When patient layes back down we will place john pads under his legs and elevate them with a pillow. Patient refuses his SCDs. He is a one person assist to the bsc or bathroom. Patient voiding in urinal in bathroom. He has multiple bruises on his back and arms. He also has some scratches and abrasions. Voices no complaints of pain and visiting with his . His heart rate is wnl. He is on tele.
[2022-07-13 11:00] VITALS: BP 105/66; PULSE 78; RESP 16; TEMP 36.1; O2SAT 99
--- NOTE | 2022-07-13 12:30 | CM.DANOTE ---
Patient is an 87 yo male who was admitted on 07/09/22 for new AFIB and bilateral leg cellulitis and STONE. Pt has MCR and AARP for insurance and his PCP is not listed. EMR was reviewed. Per MD, pt getting IV-Abx as his legs are weeping and likely here a couple days for tx. Pt is a Readmit from admission on 06/28/22 for Weakness and discharged home with new [facility] referral. SW met bedside with pt and his Sig Other Cortney and explained role and they confirm that pt still lives alone in [facility] but has Sig Other Cortney who lives nearby and they spend a lot of time together. Pt has been incredibly independent and healthy and active, still drives, does not use DME for ambulation and denies any hx of SNF. Pt's spouse about 15 years ago and pt has been able to maintain his independence well. Pt confirms adult Dtr Grecia ([phone]) is DPOA and helps to coordinate care and lives on [address] but drives up regularly to stay a couple days and then Sig Other Cortney gets a rest. Pt and Cortney state that they received a call from [facility] after discharge with a message and Dtr Grecia attempted to call [facility] back and never received a call to set up HH so [facility] never started. Pt and Sig Other both feel HH needed at d/c. MEME called [facility] and updated on above and he reviewed and saw a few attempts to call pt but nothing about Dtr calling and Mike will meet bedside with pt and family tomorrow to make sure a smooth handoff at discharge with HH. F2F completed an scanned in anticipation of home with family support and [facility]. RAHEEL Vail Discharge Planning/Care Management CM Discharge Assessment Start: 07/13/22 12:28 Freq: Status: Active Protocol: Document 07/13/22 12:28 BF (Rec: 07/13/22 12:30 BF [id number]) Discharge Planning Assessment Assigned Medical Numerical Control Operator RAHEEL Sales DPOA/Assigned Designee Name Dtr Grecia Contact Information [phone] Advance Directives? Yes Advance Directives on File No History Provided By Patient,Family Member, Significant Other,Medical Record Has Patient been admitted in last 30 Yes days? Comment Last admitted 07/04/22 and discharged home with new [facility] Prior Living Arrangements House Comment Significant other lives a block away, together often though Household Members none Type of transporation used prior to Drives own vehicle admit Independent with ADL's Yes Is patient alert and oriented? Yes Needs Assistance With Managing Medications,Home Chores / Shopping Caregiver for Another No Comment Was supposed to be open with [facility] but did not start after d/c DME Already Rented / Owned FWW / Walker,Cane Patient/Family Preference Home with Home Health Barriers to Discharge No Discharge Plan Home with Home Health Transportation Arrangement Dtr or Sig Other to transport Referrals Initiated Home Health Additional Comment [facility] referral made If patient plan is home with home health Yes : Has signed face to face form been completed? Medicare Choice List Provided Yes Medicare choice list reviewed on patient electronic tablet with SNF/HH Preference [facility] Whiteboard Updated in Patient Room with Yes name and ext. # of Medical Numerical Control Operator Review Status In Process Please Provide Date Initial DC 07/13/22 Assessment Was Performed Next Review Type Continued Stay Review
--- NOTE | 2022-07-13 13:43 | PM.PN.1 ---
Subjective Subjective Date Patient Seen: 07/13/22 Time Patient Seen: 08:00 Interval history: His leg pain is improved. He has no fevers. He denies shortness of breath. He continues to have weeping legs. He is somewhat confused and forgetful. Daughter is at bedside. Exam Vital Signs (past 8 hours): - 07/13/22 07:00 07/13/22 11:00 Temperature 97.1 F L 96.9 F L Pulse Rate 64 78 Respiratory Rate 20 16 Blood Pressure 91/66 105/66 Pulse Oximetry 97 99 Oxygen Flow Rate 0 0 Oxygen Delivery Method Room Air Oxygen Flow Rate 0 Narrative Exam Narrative: GEN: no acute distress Resp: clear bilaterally CV: regular rate and rhythm, no murmurs Abd: soft, non-tender, Skin: +2 pitting edema, weeping legs, venous stasis changes, no significant warmth or pain noted Objective Labs 07/13/22 05:50 07/13/22 05:50 Labs: Laboratory Results - last 24 hr 07/12/22 07/12/22 07/12/22 18:00 18:00 18:00 WBC 9.0 RBC 4.13 L Hgb 14.7 Hct 42.7 MCV 103.2 H MCH 35.6 H MCHC 34.5 RDW 15.3 H Plt Count 166 Neut % (Auto) 89.6 H Lymph % (Auto) 3.9 L [place] % (Auto) 4.0 Eos % (Auto) 2.2 Baso % (Auto) 0.3 Neut # (Auto) 8100 H Lymph # (Auto) 400 L [place] # (Auto) 400 Eos # (Auto) 200 Baso # (Auto) 0 PT 39.3 H INR 3.4 H APTT 38 H Sodium 120 L Potassium 4.1 Chloride 79 L Carbon Dioxide 29 BUN 35 H Creatinine 2.13 H Estimated GFR 29 L BUN/Creatinine Ratio 16.4 Glucose 137 H Lactate Calcium 8.2 L Magnesium 2.0 Total Bilirubin 2.5 H AST 75 H ALT 69 H Alkaline Phosphatase 144 H Total Creatine Kinase 212 H CK-MB (CK-2) 5.93 H CK-MB (CK-2) Rel Index 2.8 Troponin I 0.016 NT-Pro-B Natriuret Pep Total Protein 6.7 Albumin 3.6 Globulin 3.1 Albumin/Globulin Ratio 1.2 Lipase 171 Procalcitonin Urine Color Urine Appearance Urine pH Ur Specific Shafer Urine Protein Urine Glucose (UA) Urine Ketones Urine Occult Blood Urine Nitrate Urine Bilirubin Urine Urobilinogen Ur Leukocyte Esterase Urine RBC Urine WBC Ur Squamous Epith Cells Amorphous Sediment Urine Bacteria Urine Mucus Ur Culture Indicated? Ur Random Sodium Urine Creatinine SARS-CoV-2 (PCR) 07/12/22 07/12/22 07/12/22 18:00 18:00 18:00 WBC RBC Hgb Hct MCV MCH MCHC RDW Plt Count Neut % (Auto) Lymph % (Auto) [place] % (Auto) Eos % (Auto) Baso % (Auto) Neut # (Auto) Lymph # (Auto) [place] # (Auto) Eos # (Auto) Baso # (Auto) PT INR APTT Sodium Potassium Chloride Carbon Dioxide BUN Creatinine Estimated GFR BUN/Creatinine Ratio Glucose Lactate 2.3 H Calcium Magnesium Total Bilirubin AST ALT Alkaline Phosphatase Total Creatine Kinase CK-MB (CK-2) CK-MB (CK-2) Rel Index Troponin I NT-Pro-B Natriuret Pep 3400 H Total Protein Albumin Globulin Albumin/Globulin Ratio Lipase Procalcitonin 0.99 H Urine Color Urine Appearance Urine pH Ur Specific Shafer Urine Protein Urine Glucose (UA) Urine Ketones Urine Occult Blood Urine Nitrate Urine Bilirubin Urine Urobilinogen Ur Leukocyte Esterase Urine RBC Urine WBC Ur Squamous Epith Cells Amorphous Sediment Urine Bacteria Urine Mucus Ur Culture Indicated? Ur Random Sodium Urine Creatinine SARS-CoV-2 (PCR) 07/12/22 07/12/22 07/12/22 18:09 19:10 19:14 WBC RBC Hgb Hct MCV MCH MCHC RDW Plt Count Neut % (Auto) Lymph % (Auto) [place] % (Auto) Eos % (Auto) Baso % (Auto) Neut # (Auto) Lymph # (Auto) [place] # (Auto) Eos # (Auto) Baso # (Auto) PT INR APTT Sodium Potassium Chloride Carbon Dioxide BUN Creatinine Estimated GFR BUN/Creatinine Ratio Glucose Lactate Calcium Magnesium Total Bilirubin AST ALT Alkaline Phosphatase Total Creatine Kinase CK-MB (CK-2) CK-MB (CK-2) Rel Index Troponin I NT-Pro-B Natriuret Pep Total Protein Albumin Globulin Albumin/Globulin Ratio Lipase Procalcitonin Urine Color Yellow Urine Appearance Clear Urine pH 5.0 Ur Specific Shafer 1.015 Urine Protein Negative Urine Glucose (UA) Negative Urine Ketones Negative Urine Occult Blood Negative Urine Nitrate Negative Urine Bilirubin Negative Urine Urobilinogen 1.0 Ur Leukocyte Esterase Negative Urine RBC None seen Urine WBC 0-1/hpf Ur Squamous Epith Cells 0-1 /hpf Amorphous Sediment 1+ Urine Bacteria None seen Urine Mucus 1+ H Ur Culture Indicated? Cult not indicated Ur Random Sodium < 5 L Urine Creatinine 105.0 SARS-CoV-2 (PCR) Negative 07/12/22 07/13/22 07/13/22 21:30 05:50 05:50 WBC 9.6 RBC 4.33 L Hgb 15.2 Hct 44.9 MCV 103.8 H MCH 35.1 H MCHC 33.8 RDW 15.8 H Plt Count 135 L Neut % (Auto) 92.1 H Lymph % (Auto) 2.0 L [place] % (Auto) 2.6 L Eos % (Auto) 3.0 Baso % (Auto) 0.3 Neut # (Auto) 8800 H Lymph # (Auto) 200 L [place] # (Auto) 200 Eos # (Auto) 300 Baso # (Auto) 0 PT INR APTT Sodium 121 L Potassium 4.1 Chloride 84 L Carbon Dioxide 25 BUN 38 H Creatinine 2.12 H Estimated GFR 30 L BUN/Creatinine Ratio 17.9 Glucose 82 Lactate 2.5 H Calcium 8.1 L Magnesium 2.0 Total Bilirubin 2.9 H AST 89 H ALT 71 H Alkaline Phosphatase 173 H Total Creatine Kinase CK-MB (CK-2) CK-MB (CK-2) Rel Index Troponin I NT-Pro-B Natriuret Pep Total Protein 5.9 L Albumin 3.1 L Globulin 2.8 Albumin/Globulin Ratio 1.1 Lipase Procalcitonin Urine Color Urine Appearance Urine pH Ur Specific Shafer Urine Protein Urine Glucose (UA) Urine Ketones Urine Occult Blood Urine Nitrate Urine Bilirubin Urine Urobilinogen Ur Leukocyte Esterase Urine RBC Urine WBC Ur Squamous Epith Cells Amorphous Sediment Urine Bacteria Urine Mucus Ur Culture Indicated? Ur Random Sodium Urine Creatinine SARS-CoV-2 (PCR) [facility] Medical History Congestive heart failure Hyperlipidemia Paroxysmal atrial fibrillation Surgical History No pertinent past surgical history Family History (Updated 07/13/22 @ 01:50 by KULWANT Joseph) Father No pertinent past medical history Mother No pertinent past medical history Social History household members: none Smoking Status: Never smoker alcohol intake: former Assessment & Plan Assessment & Plan narrative: # Acute on chronic diastolic CHF exacerbation -presents with elevated BNP, lower extremity edema -restart lasix, diuresed well last admission at 60mg IV BID, will continue that dose -goal 1-2L net negative -daily weights -daily bmp, mag -salt and fluid restriction # STONE -suspect secondary to hypervolemia, renal vascular congestion -diurese as above -ultrasound shows no hydronephrosis # Hyponatremia -suspect secondary to hypervolemia -acutely worsened since last admission -diuresis as above # Possible left leg cellulitis -elevated procalcitonin, no fevers, mild erythema on back of left leg -plan for 5 day course of antibiotics, continue ceftriaxone for now # Atrial fibrillation -rate controlled -continue home dose metoprolol and apixaban # Hypothyroidism -continue synthroid # Transaminitis secondary to CHF -trend lfts daily Time Spent With Patient Critical Care time: I spent a total of [] minutes of critical care time on this patient's care today; this time is exclusive of procedural time.
[2022-07-13] MEDS: FUROSEMIDE 60 MG in SODIUM CHLORIDE 0.9% 50 ML 112 MG IV (14:50)
[2022-07-13 15:00] VITALS: BP 121/69; PULSE 108; RESP 16; TEMP 36.3; O2SAT 97
[2022-07-13 19:00] VITALS: BP 123/71; PULSE 63; RESP 17; TEMP 36.6; O2SAT 96
[2022-07-13] MEDS: ATORVASTATIN 20 MG TABLET 10 MG PO (20:24)
[2022-07-13] MEDS: SENNOSIDES 8.6 MG TABLET 17.2 MG PO (20:24)
[2022-07-13] MEDS: METOPROLOL ER 50 MG TABLET 100 MG PO (20:25)
[2022-07-13] MEDS: APIXABAN 5 MG TABLET 2.5 MG PO (20:25)
[2022-07-14] VITALS (8 sets, daily range): BP systolic 96–117; BP diastolic 59–77; PULSE 74–106; RESP 14–22; TEMP 36–36.4; O2SAT 91–97
[2022-07-14 04:34] LABS: Add Manual Diff / Slide Review NO; Basophils Absolute Auto 0 /uL (0-100); Basophils Percent Auto 0.2 % (0-2); Eosinophils Absolute Auto 300 /uL (0-450); Eosinophils Percent Auto 3.6 % (2-4); Hematocrit 41.8 % (41-53); Hemoglobin 14.7 g/dL (13.5-17.5); Lymphocytes Absolute Auto 500 /uL (1100-4500); Lymphocytes Percent Auto 6.1 % (25-40); Mean Corpuscular HGB Conc 35.1 % (30-36); Mean Corpuscular Hemoglobin 36.1 PG (26-34); Mean Corpuscular Volume 102.9 fL (80-100); Monocytes Absolute Auto 500 /uL (0-900); Monocytes Percent Auto 6.5 % (3-14); Neutrophils Absolute Auto 6400 /uL (1500-7000); Neutrophils Percent Auto 83.6 % (50-75); Platelet Count 149 X10^3/uL (150-400); Red Blood Cell Count 4.06 X10^6/uL (4.5-5.9); Red Cell Distribution Width 15.7 % (11.6-14.8); White Blood Cell Count 7.7 X10^3/uL (4.5-11.0)
[2022-07-14 04:48] LABS: Alanine Aminotransferase 74 IU/L (<50); Albumin 3.3 g/dL (3.5-5.0); Albumin Globulin Ratio 1.1 (1.0-2.8); Alkaline Phosphatase 217 U/L (38-126); Aspartate Aminotransferase 99 IU/L (17-59); BUN Creatinine Ratio 20.5 (6-22); Bilirubin Total 2.4 mg/dL (0.2-1.3); Blood Urea Nitrogen 38 mg/dL (9-20); Calcium 7.8 mg/dL (8.4-10.2); Carbon Dioxide 27 mmol/L (22-32); Chloride 83 mmol/L (98-107); Estimated Glomerular Filt Rate 35 mL/min (>60); Glucose 101 mg/dL (80-110); HEMOLYSIS < 15 (0-50); Magnesium 2.1 mg/dL (1.6-2.3); Potassium 4.1 mmol/L (3.4-5.1); Sodium 121 mmol/L (137-145); Total Protein 6.3 g/dL (6.3-8.2)
[2022-07-14] MEDS: FUROSEMIDE 60 MG in SODIUM CHLORIDE 0.9% 50 ML 112 MG IV (06:51)
[2022-07-14] MEDS: LEVOTHYROXINE 25 MCG TABLET PO (06:52)
[2022-07-14] MEDS: APIXABAN 5 MG TABLET 2.5 MG PO ×2 (09:45→20:12)
--- NOTE | 2022-07-14 11:48 | PC.NURSE ---
Notified Jonas about [employer] MANAGER's tele report indicating 9 runs of V-tach and that pt's sodium has been 121 for the past couple of days @ 1130. Jonas added new orders.
--- NOTE | 2022-07-14 12:20 | PM.PN.1 ---
Subjective Subjective Date Patient Seen: 07/14/22 Interval history: Michael Woodson was an 87-year-old male with newly diagnosed atrial fibrillation who presented to the emergency department with a 3-4 day history of pedal edema, and ulcerations on the back of both legs.? He had very sudden onset foot swelling and weeping of his legs to the point it stained his clothing.? He states he did not feel palpitations or chest pain, he denied nausea or vomiting, abdominal pain, dysuria, diarrhea or constipation.? And was recently seen in hospitalized for undiagnosed atrial fibrillation, CHF and was discharged on the 04 of July. Chest x-ray ordered in the ED indicated possible pulmonary scarring versus superimposed pneumonia and a possible right pleural effusion.? He was administered a 1 time dose of IV clindamycin for the lower leg cellulitis.? He was afebrile, his blood pressure is 97/62 heart rate 87 respiratory rate 19 oxygen saturation 96% on room air he weighs 84.5 kg with a BMI of 26.7.? CBC was unremarkable, his INR is 3.4 sodium 120 chloride 79 BUN 35 creatinine 2.13 with an EGFR of 29 glucose 137 lactate is 2.5 calcium 8.2 T bili 2.5 AST 75 ALT 69 alk-phos 144 creatinine kinase is 212 proBNP is 3400 procalcitonin is 0.99 urine is negative for a UTI, urine sodium is less than 5 and his urine creatinine is 105 with a 0.1% chance of prerenal.? COVID-19 PCR is negative. Echo, 06/28/22: The patient was in atrial fibrillation with heart rates between 85-105 bpm during the exam. Normal left ventricle size with ejection fraction 55-60%. Moderately dilated right ventricle with normal right ventricular systolic function. Severe biatrial enlargement. The aortic valve is mildly calcified. Mild to moderate aortic regurgitation. Moderate mitral annular calcification. Moderate mitral regurgitation. The tricuspid annulus is dilated. Severe tricuspid regurgitation. Today the patient feels confused and had a run of Vtach as he also did yesterday. Exam Vital Signs (past 8 hours): - 07/14/22 10:00 Temperature 96.8 F L Pulse Rate 99 H Respiratory Rate 22 Blood Pressure 117/73 Pulse Oximetry 93 Oxygen Flow Rate 0 Oxygen Delivery Method Room Air Oxygen Flow Rate 0 Narrative Exam Narrative: GEN: no acute distress Resp: clear bilaterally CV: heart sounds S1 and S2, no murmurs Abd: soft, non-tender, Skin: +1 pitting edema, venous stasis changes, no significant warmth or pain noted Objective Labs 07/14/22 03:52 07/14/22 03:52 Labs: Laboratory Results - last 24 hr 07/14/22 07/14/22 03:52 03:52 WBC 7.7 RBC 4.06 L Hgb 14.7 Hct 41.8 MCV 102.9 H MCH 36.1 H MCHC 35.1 RDW 15.7 H Plt Count 149 L Neut % (Auto) 83.6 H Lymph % (Auto) 6.1 L [place] % (Auto) 6.5 Eos % (Auto) 3.6 Baso % (Auto) 0.2 Neut # (Auto) 6400 Lymph # (Auto) 500 L [place] # (Auto) 500 Eos # (Auto) 300 Baso # (Auto) 0 Sodium 121 L Potassium 4.1 Chloride 83 L Carbon Dioxide 27 BUN 38 H Creatinine 1.85 H Estimated GFR 35 L BUN/Creatinine Ratio 20.5 Glucose 101 Calcium 7.8 L Magnesium 2.1 Total Bilirubin 2.4 H AST 99 H ALT 74 H Alkaline Phosphatase 217 H Total Protein 6.3 Albumin 3.3 L Globulin 3.0 Albumin/Globulin Ratio 1.1 PFSH Medical History Congestive heart failure Hyperlipidemia Paroxysmal atrial fibrillation Surgical History No pertinent past surgical history Family History (Updated 07/13/22 @ 01:50 by KULWANT Joseph) Father No pertinent past medical history Mother No pertinent past medical history Social History household members: none Smoking Status: Never smoker alcohol intake: former Assessment & Plan Assessment & Plan narrative: # Acute on chronic diastolic CHF exacerbation -presents with elevated BNP, lower extremity edema, follow level tomorrow after having significant diuresis in hospital - was on Bumex in community,restart lasixed on admission, at 60mg IV BID, change to oral 20 mg BID in hopes of improving Na, this may need to be increased however -goal has been 1-2L net negative since admission, wt today is 84.5 kg -daily weights -daily bmp, mag -salt and fluid restriction # STONE -suspect secondary to hypervolemia, renal vascular congestion -diurese as above, change to oral meds today of furosemide 20 mg BID -ultrasound shows no hydronephrosis # Hyponatremia -suspect secondary to hypervolemia -acutely worsened since last admission -diuresis as above - follow labs, hyponatremia contributing to confusion # Possible left leg cellulitis -elevated procalcitonin, no fevers, mild erythema on back of left leg -plan for 5 day course of antibiotics, on ceftriaxone, transition to oral cephalexin # Atrial fibrillation -rate controlled -continue home dose metoprolol and apixaban # run of V tach, 9 beats, similar episode yesterday, patient did not feel, continue metoprolo, add a calcium channel mikki, continue telelmetry # Hypothyroidism -continue synthroid - recently started on medication, check TSH, Free T4 and Free T3 to see if dose too much and contributing to HR problems # Transaminitis secondary to CHF -trend lfts daily, continue, these have been increasing, order liver US # 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 could be contributing to STONE, start tamsulosin #insomnia - takes regular dose of lorazepam 1 mg at home, continue add Trazodone 25 mg as well Time Spent With Patient Critical Care time: I spent a total of [] minutes of critical care time on this patient's care today; this time is exclusive of procedural time.
--- NOTE | 2022-07-14 12:22 | DI.RAD.S_ITS ---
PROCEDURE: XR CHEST 1V INDICATIONS: assess for infiltrate, chf TECHNIQUE: One view of the chest was acquired. COMPARISON: [facility], CR, XR CHEST 1V, 07/12/2022, 18:05. FINDINGS: Surgical changes and devices: None. Lungs and pleura: Diffuse chronic interstitial changes with left-sided and right basilar atelectasis and infiltrate, similar prior exam Mediastinum: Mediastinal contours appear normal. Heart size is enlarged. Atherosclerotic vascular calcification noted in the aortic arch. Bones and chest wall: No suspicious bony lesions. Overlying soft tissues appear unremarkable. IMPRESSION: Bilateral atelectasis and or infiltrate particularly left lung associated with underlying chronic interstitial changes Approved by: Wes Herny M.D. on 07/14/2022 at 12:00
[2022-07-14] MEDS: AMLODIPINE 5 MG TABLET 2.5 MG PO (12:48)
[2022-07-14] MEDS: TAMSULOSIN 0.4 MG CAPSULE PO (12:48)
[2022-07-14] MEDS: FUROSEMIDE 20 MG TABLET PO (16:36)
--- NOTE | 2022-07-14 19:02 | DI.US.S_ITS ---
PROCEDURE: US ABDOMEN LIMITED INDICATIONS: ABNORMAL LFTS TECHNIQUE: Real-time focused scanning was performed of the abdomen, with image documentation. COMPARISON: [facility], MR, MR ABDOMEN WO/W CON, 06/28/2022, 7:08. FINDINGS: The gallbladder is distended and demonstrates moderate diffuse wall thickening and small amount of pericholecystic fluid. The wall measures at least 6 mm. There is dependent material seen in the gallbladder, likely sludge. No visible shadowing calculus. No sonographic Miranda sign per the technologist. The visible portions of the liver and right kidney are normal. Common hepatic duct is normal caliber at 6 mm. Common bile duct is not seen. The pancreas and common bile duct were not well seen due to lack of good acoustic window. No significant perihepatic fluid. IMPRESSION: 1. Distended gallbladder with abnormal wall thickening and pericholecystic fluid. This is nonspecific and can be seen in the setting of hyperproteinemia, liver disease, acalculous cholecystitis. 2. Appearance is not significantly different compared to the MR from 06/28/22. Dictated by: Akua Thapa M.D. on 07/15/2022 at 8:12 Approved by: Akua Thapa M.D. on 07/15/2022 at 8:16
[2022-07-14] MEDS: ATORVASTATIN 20 MG TABLET 10 MG PO (20:13)
[2022-07-14] MEDS: METOPROLOL ER 50 MG TABLET 100 MG PO (20:14)
[2022-07-14] MEDS: SENNOSIDES 8.6 MG TABLET 17.2 MG PO (20:14)
[2022-07-14] MEDS: cephALEXin 250 MG CAPSULE 500 MG PO (20:14)
[2022-07-14] MEDS: LORazepam 1 MG TABLET PO (20:14)
[2022-07-14] MEDS: SODIUM CHLORIDE 0.9% FLUSH 10 ML IV (20:15)
[2022-07-14] MEDS: TRAZODONE 50 MG TABLET 25 MG PO (20:15)
[2022-07-15] VITALS (8 sets, daily range): BP systolic 99–128; BP diastolic 57–75; PULSE 66–101; RESP 16–19; TEMP 35.9–36.9; O2SAT 96–97
[2022-07-15 04:51] LABS: Add Manual Diff / Slide Review NO; Basophils Absolute Auto 0 /uL (0-100); Basophils Percent Auto 0.6 % (0-2); Eosinophils Absolute Auto 300 /uL (0-450); Eosinophils Percent Auto 4.9 % (2-4); Hematocrit 40.4 % (41-53); Hemoglobin 13.6 g/dL (13.5-17.5); Lymphocytes Absolute Auto 600 /uL (1100-4500); Lymphocytes Percent Auto 10.1 % (25-40); Mean Corpuscular HGB Conc 33.6 % (30-36); Mean Corpuscular Hemoglobin 35.1 PG (26-34); Mean Corpuscular Volume 104.3 fL (80-100); Monocytes Absolute Auto 700 /uL (0-900); Monocytes Percent Auto 11.7 % (3-14); Neutrophils Absolute Auto 4500 /uL (1500-7000); Neutrophils Percent Auto 72.7 % (50-75); Platelet Count 153 X10^3/uL (150-400); Red Blood Cell Count 3.88 X10^6/uL (4.5-5.9); Red Cell Distribution Width 15.3 % (11.6-14.8); White Blood Cell Count 6.1 X10^3/uL (4.5-11.0)
[2022-07-15 04:57] LABS: Alanine Aminotransferase 60 IU/L (<50); Albumin Globulin Ratio 1.1 (1.0-2.8); Alkaline Phosphatase 204 U/L (38-126); Aspartate Aminotransferase 71 IU/L (17-59); BUN Creatinine Ratio 24.5 (6-22); Bilirubin Total 2.4 mg/dL (0.2-1.3); Blood Urea Nitrogen 35 mg/dL (9-20); Calcium 7.8 mg/dL (8.4-10.2); Carbon Dioxide 29 mmol/L (22-32); Chloride 84 mmol/L (98-107); Estimated Glomerular Filt Rate 47 mL/min (>60); Globulin 2.8 g/dL (1.7-4.1); Glucose 100 mg/dL (80-110); HEMOLYSIS < 15 (0-50); Magnesium 2.1 mg/dL (1.6-2.3); Potassium 3.4 mmol/L (3.4-5.1); Sodium 121 mmol/L (137-145); Total Protein 5.8 g/dL (6.3-8.2)
[2022-07-15 05:11] LABS: Free T3, Triiodothyronine Free 1.65 pg/mL (2.77-5.27)
[2022-07-15] MEDS: LEVOTHYROXINE 25 MCG TABLET PO (05:42)
[2022-07-15] MEDS: TAMSULOSIN 0.4 MG CAPSULE PO (08:33)
[2022-07-15] MEDS: AMLODIPINE 5 MG TABLET PO (08:33)
[2022-07-15] MEDS: FUROSEMIDE 20 MG TABLET PO (08:33)
[2022-07-15] MEDS: APIXABAN 5 MG TABLET 2.5 MG PO (08:33)
[2022-07-15] MEDS: cephALEXin 250 MG CAPSULE 500 MG PO ×2 (08:33→20:40)
[2022-07-15] MEDS: SODIUM CHLORIDE 0.9% FLUSH 10 ML IV ×2 (08:34→20:41)
[2022-07-15] MEDS: FUROSEMIDE 60 MG in SODIUM CHLORIDE 0.9% 50 ML 112 MG IV (18:10)
--- NOTE | 2022-07-15 19:11 | PM.PN.1 ---
Subjective Subjective Date Patient Seen: 07/15/22 Interval history: Michael Woodson was an 87-year-old male with newly diagnosed atrial fibrillation who presented to the emergency department with a 3-4 day history of pedal edema, and ulcerations on the back of both legs.?Admitted with hyponatremia, CHF, cellulitis. Starting to improve slowly, but Na remains quite stagnant. Will increase diuretic today. Exam Vital Signs (past 8 hours): - 07/15/22 14:00 07/15/22 14:31 07/15/22 17:43 Temperature 97.4 F L 98.4 F Pulse Rate 66 94 H Respiratory Rate 16 18 Blood Pressure 115/72 116/63 Pulse Oximetry 97 Oxygen Delivery Method Room Air Oxygen Flow Rate 0 0 Oxygen Delivery Method Room Air Oxygen Flow Rate 0 Narrative Exam Narrative: GEN: no acute distress Resp: clear bilaterally CV: heart sounds S1 and S2, no murmurs Abd: soft, non-tender, Skin: +1 pitting edema, venous stasis changes, no significant warmth or pain noted Objective Labs 07/15/22 04:22 07/15/22 04:22 Labs: Laboratory Results - last 24 hr 07/15/22 07/15/22 07/15/22 04:22 04:22 04:22 WBC 6.1 RBC 3.88 L Hgb 13.6 Hct 40.4 L MCV 104.3 H MCH 35.1 H MCHC 33.6 RDW 15.3 H Plt Count 153 Neut % (Auto) 72.7 Lymph % (Auto) 10.1 L [place] % (Auto) 11.7 Eos % (Auto) 4.9 H Baso % (Auto) 0.6 Neut # (Auto) 4500 Lymph # (Auto) 600 L [place] # (Auto) 700 Eos # (Auto) 300 Baso # (Auto) 0 Sodium 121 L Potassium 3.4 Chloride 84 L Carbon Dioxide 29 BUN 35 H Creatinine 1.43 H Estimated GFR 47 L BUN/Creatinine Ratio 24.5 H Glucose 100 Calcium 7.8 L Magnesium 2.1 Total Bilirubin 2.4 H AST 71 H ALT 60 H Alkaline Phosphatase 204 H Total Protein 5.8 L Albumin 3.0 L Globulin 2.8 Albumin/Globulin Ratio 1.1 TSH 9.80 H D Free T4 1.10 Free T3 1.65 L PFSH Medical History Congestive heart failure Hyperlipidemia Paroxysmal atrial fibrillation Surgical History No pertinent past surgical history Family History (Updated 07/13/22 @ 01:50 by KULWANT Joseph) Father No pertinent past medical history Mother No pertinent past medical history Social History household members: none Smoking Status: Never smoker alcohol intake: former Assessment & Plan Assessment & Plan narrative: # Acute on chronic diastolic CHF exacerbation -presents with elevated BNP, lower extremity edema, follow level tomorrow after having significant diuresis in hospital -was on 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 restarted lasix on admission, at 60mg IV BID, change to oral 20 mg BID in hopes of improving Na but this likely represents hypervolemia so will increase back to 60 mg IV furosemide, may need additional. -daily weights -daily bmp, mag -fluid restriction to continue. # STONE -suspect secondary to hypervolemia, renal vascular congestion -diurese as above, change to oral meds today of furosemide 20 mg BID -ultrasound shows no hydronephrosis # Hyponatremia with acute metabolic encephalopathy. -suspect secondary to hypervolemia -acutely worsened since last admission likely with reduction in outpatient diuretic. -diuresis as above - follow labs, hyponatremia contributing to confusion # Possible left leg cellulitis -elevated procalcitonin, no fevers, mild erythema on back of left leg -plan for 5 day course of antibiotics, on ceftriaxone, transition to oral cephalexin # Atrial fibrillation -rate controlled -continue home dose metoprolol and apixaban # run of V tach, 9 beats, similar episode yesterday, patient did not feel, continue metoprolo, add a calcium channel mikki, continue telelmetry # Hypothyroidism -continue synthroid - recently started on medication, check TSH, Free T4 and Free T3 to see if dose too much and contributing to HR problems # Transaminitis and hyperbilirubinemia secondary to CHF -trend lfts # 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 could be contributing to STONE, start tamsulosin #insomnia - takes regular dose of lorazepam 1 mg at home, continue add Trazodone 25 mg as well Dispo: probable discharge home with home health, when sodium and volume status improves. Time Spent With Patient Critical Care time: I spent a total of [] minutes of critical care time on this patient's care today; this time is exclusive of procedural time.
[2022-07-15] MEDS: APIXABAN 5 MG TABLET PO (20:40)
[2022-07-15] MEDS: ATORVASTATIN 20 MG TABLET 10 MG PO (20:40)
[2022-07-15] MEDS: SENNOSIDES 8.6 MG TABLET 17.2 MG PO (20:41)
[2022-07-15] MEDS: LORazepam 1 MG TABLET PO (20:41)
[2022-07-15] MEDS: TRAZODONE 50 MG TABLET 25 MG PO (20:41)
[2022-07-15] MEDS: METOPROLOL ER 50 MG TABLET 100 MG PO (20:41)
--- NOTE | 2022-07-15 23:57 | PC.NURSE ---
Addendum entered by Lani Zafar R.N. 07/16/22 06:01: Earlier this shift patient had become more impulsive and frequently disconnecting and/or removing telemetry. When telemetry was being replaced he had stated his legs hurt and described severity as 4/10 so was medicated with Vicodin after which he fell asleep and has been sleeping since. Was difficult to arouse initially this morning but then did awaken enough to take his thyroid medication and then fell back to sleep. Original Note: Patient is oriented except did not know date but is forgetful at times. Breath sounds diminished in right LL and has crackles in left LL; RA sat is 97% and denies SOB. HR irregular with diagnosis of afib; telemetry reading was afib CVR. Denies nausea. BT present and abdomen is soft; reports having had BM earlier today. Is voiding on toilet and denies dysuria. Is able to turn himself in bed. Up to bathroom with walker and SBA. Continues to have open skin ulcers on bilateral LE with pink skin hue to anterior right lower leg with edema; weeping. Noted edema extending up into bilateral thighs tonight and edema on right is greater than on left. Denies pain. Fall risk score is high and bed alarm is activated.
[2022-07-16] MEDS: HYDROCODONE/ACET 5/325 TABLET 1 TAB PO (01:18)
[2022-07-16 04:00] VITALS: BP 106/64; PULSE 80; RESP 15; TEMP 36.6; O2SAT 97
[2022-07-16] MEDS: LEVOTHYROXINE 25 MCG TABLET PO (05:58)
[2022-07-16 08:00] VITALS: BP 121/76; PULSE 84; RESP 17; TEMP 36.3; O2SAT 98
[2022-07-16 09:12] LABS: Add Manual Diff / Slide Review NO; Basophils Absolute Auto 0 /uL (0-100); Basophils Percent Auto 0.4 % (0-2); Eosinophils Absolute Auto 300 /uL (0-450); Eosinophils Percent Auto 7.4 % (2-4); Hematocrit 42.6 % (41-53); Hemoglobin 14.1 g/dL (13.5-17.5); Lymphocytes Absolute Auto 800 /uL (1100-4500); Lymphocytes Percent Auto 17.6 % (25-40); Mean Corpuscular HGB Conc 33.1 % (30-36); Mean Corpuscular Hemoglobin 34.7 PG (26-34); Mean Corpuscular Volume 104.7 fL (80-100); Monocytes Absolute Auto 600 /uL (0-900); Monocytes Percent Auto 13.3 % (3-14); Neutrophils Absolute Auto 2900 /uL (1500-7000); Neutrophils Percent Auto 61.3 % (50-75); Platelet Count 134 X10^3/uL (150-400); Red Blood Cell Count 4.06 X10^6/uL (4.5-5.9); Red Cell Distribution Width 15.3 % (11.6-14.8); White Blood Cell Count 4.7 X10^3/uL (4.5-11.0)
[2022-07-16 09:31] LABS: BUN Creatinine Ratio 28.6 (6-22); Blood Urea Nitrogen 30 mg/dL (9-20); Calcium 7.8 mg/dL (8.4-10.2); Carbon Dioxide 27 mmol/L (22-32); Chloride 87 mmol/L (98-107); Estimated Glomerular Filt Rate > 60 mL/min (>60); Glucose 91 mg/dL (80-110); HEMOLYSIS 35 (0-50); Magnesium 2.1 mg/dL (1.6-2.3); Potassium 3.3 mmol/L (3.4-5.1); Sodium 123 mmol/L (137-145)
[2022-07-16] MEDS: APIXABAN 5 MG TABLET PO ×2 (09:50→21:14)
[2022-07-16] MEDS: cephALEXin 250 MG CAPSULE 500 MG PO ×3 (09:50→21:14)
[2022-07-16] MEDS: TAMSULOSIN 0.4 MG CAPSULE PO (09:50)
[2022-07-16] MEDS: SODIUM CHLORIDE 0.9% FLUSH 10 ML IV ×2 (09:51→21:14)
[2022-07-16] MEDS: FUROSEMIDE 60 MG in SODIUM CHLORIDE 0.9% 50 ML 112 MG IV ×2 (10:08→17:36)
[2022-07-16 11:59] VITALS: BP 125/69; PULSE 88; RESP 17; TEMP 36.3; O2SAT 98
[2022-07-16] MEDS: POTASSIUM CHLORIDE 20 MEQ TAB 40 MEQ PO ×2 (12:08→17:38)
[2022-07-16 15:00] VITALS: BP 108/67; PULSE 100; RESP 17; TEMP 36.2; O2SAT 97
--- NOTE | 2022-07-16 15:10 | CM.DPNOTE ---
DCP Note Lengthy conversation w/patient and patient's dtr Grecia; discussed HH services vs in home care vs respite facility placement Patient very pleasant, likes to feel organized, short term memory loss noted however able to track conversation- does repeat self often Dtr Grecia admits outside of patient's room that SO Brady has had multiple panic attacks re taking care of patient and dtr is not confident that SO Brady will be the person caring for patient in the residential Dtr considering transitioning patient into a respite [facility] [address] where she and her spouse live until they can coordinate either in home care, HH services vs facility placement nearer to them CM team will continue to follow closely. Patient is not medically stable today may be ready for discharge within the next 24-48 hrs Plan: Anticipate DC home w/dtr and SO Brady and services. Family requests a call to [facility] to nail down what day they could expect to see an RN JENARO
--- NOTE | 2022-07-16 17:44 | P.PN_ITS ---
Subjective Subjective Date Patient Seen: 07/16/22 Interval history: Michael Woodson was an 87-year-old male with newly diagnosed atrial fibrillation who presented to the emergency department with a 3-4 day history of pedal edema, and ulcerations on the back of both legs.?Admitted with hyponatremia, CHF, cellulitis. Starting to improve slowly, Na up a bit more today with increased diuretic. Exam Vital Signs (past 8 hours): - 07/16/22 11:59 07/16/22 15:00 Temperature 97.3 F L 97.1 F L Pulse Rate 88 100 H Respiratory Rate 17 17 Blood Pressure 125/69 108/67 Pulse Oximetry 98 97 Oxygen Flow Rate 0 0 Oxygen Delivery Method Room Air Oxygen Flow Rate 0 Narrative Exam Narrative: GEN: no acute distress Resp: clear bilaterally CV: heart sounds S1 and S2, no murmurs Abd: soft, non-tender, Skin: +1 pitting edema, venous stasis changes, no significant warmth or pain noted Objective Labs 07/16/22 08:30 07/16/22 08:30 Labs: Laboratory Results - last 24 hr 07/16/22 07/16/22 08:30 08:30 WBC 4.7 RBC 4.06 L Hgb 14.1 Hct 42.6 MCV 104.7 H MCH 34.7 H MCHC 33.1 RDW 15.3 H Plt Count 134 L Neut % (Auto) 61.3 Lymph % (Auto) 17.6 L Day % (Auto) 13.3 Eos % (Auto) 7.4 H Baso % (Auto) 0.4 Neut # (Auto) 2900 Lymph # (Auto) 800 L Day # (Auto) 600 Eos # (Auto) 300 Baso # (Auto) 0 Sodium 123 L Potassium 3.3 L Chloride 87 L Carbon Dioxide 27 BUN 30 H Creatinine 1.05 Estimated GFR > 60 BUN/Creatinine Ratio 28.6 H Glucose 91 Calcium 7.8 L Magnesium 2.1 PFSH Medical History Congestive heart failure Hyperlipidemia Paroxysmal atrial fibrillation Surgical History No pertinent past surgical history Family History (Updated 07/13/22 @ 01:50 by KULWANT Joseph) Father No pertinent past medical history Mother No pertinent past medical history Social History household members: none Smoking Status: Never smoker alcohol intake: former Assessment & Plan Assessment & Plan narrative: # Acute on chronic diastolic CHF exacerbation -presents with elevated BNP, lower extremity edema and hepatic congestion -was on Bumex in community but 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 restarted lasix on admission, at 60mg IV BID, change to oral 20 mg BID in hopes of improving Na but this likely represents hypervolemia so increased back to 60 mg IV furosemide BID, may need additional. But Na now improved to 123 today after multiple days at 121. -daily weights -daily bmp, mag -fluid restriction to continue. # STONE -suspect secondary to hypervolemia, renal vascular congestion -diurese as above -ultrasound shows no hydronephrosis # Hyponatremia with acute metabolic encephalopathy. -suspect secondary to hypervolemia -acutely worsened since last admission likely with reduction in outpatient diuretic. -diuresis as above - follow labs, hyponatremia contributing to confusion # Possible left leg cellulitis -elevated procalcitonin, no fevers, mild erythema on back of left leg -plan for 5 day course of antibiotics, on ceftriaxone, transition to oral cephalexin # Atrial fibrillation -rate controlled -continue home dose metoprolol and apixaban # run of V tach, 9 beats, similar episode yesterday, patient did not feel, continue metoprolo, add a calcium channel mikki. Can stop telemetry today with improving sodium and no symptoms. 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 could be contributing to STONE, start tamsulosin #insomnia - takes regular dose of lorazepam 1 mg at home, continue add Trazodone 25 mg as well Dispo: probable discharge home with home health, when sodium and volume status improves. Time Spent With Patient Critical Care time: I spent a total of [] minutes of critical care time on this patient's care today; this time is exclusive of procedural time.
[2022-07-16 19:00] VITALS: BP 126/74; PULSE 106; RESP 17; TEMP 36.2; O2SAT 97
[2022-07-16 21:14] VITALS: BP 126/72; PULSE 103
[2022-07-16] MEDS: ATORVASTATIN 20 MG TABLET 10 MG PO (21:14)
[2022-07-16] MEDS: METOPROLOL ER 50 MG TABLET 100 MG PO (21:14)
[2022-07-16] MEDS: LORazepam 1 MG TABLET PO (21:14)
[2022-07-16] MEDS: TRAZODONE 50 MG TABLET 25 MG PO (21:14)
[2022-07-17] VITALS: BP 121/67; PULSE 86; RESP 17; TEMP 36.8; O2SAT 97
[2022-07-17 04:00] VITALS: BP 91/66; PULSE 103; RESP 19; TEMP 36.4; O2SAT 97
[2022-07-17] MEDS: LEVOTHYROXINE 25 MCG TABLET PO (06:51)
[2022-07-17 08:00] VITALS: BP 107/63; PULSE 97; RESP 17; TEMP 36.8; O2SAT 94
[2022-07-17] MEDS: SODIUM CHLORIDE 0.9% FLUSH 10 ML IV ×2 (09:05→20:50)
[2022-07-17] MEDS: TAMSULOSIN 0.4 MG CAPSULE PO (09:05)
[2022-07-17] MEDS: APIXABAN 5 MG TABLET PO ×2 (09:05→20:28)
[2022-07-17] MEDS: cephALEXin 250 MG CAPSULE 500 MG PO ×4 (09:05→20:28)
[2022-07-17] MEDS: FUROSEMIDE 60 MG in SODIUM CHLORIDE 0.9% 50 ML 112 MG IV ×2 (09:23→17:24)
[2022-07-17 10:08] LABS: Add Manual Diff / Slide Review NO; Basophils Absolute Auto 100 /uL (0-100); Basophils Percent Auto 1.1 % (0-2); Eosinophils Absolute Auto 200 /uL (0-450); Eosinophils Percent Auto 4.6 % (2-4); Hematocrit 42.4 % (41-53); Hemoglobin 14.4 g/dL (13.5-17.5); Lymphocytes Absolute Auto 900 /uL (1100-4500); Lymphocytes Percent Auto 17.1 % (25-40); Mean Corpuscular HGB Conc 33.9 % (30-36); Mean Corpuscular Volume 103.2 fL (80-100); Monocytes Absolute Auto 700 /uL (0-900); Monocytes Percent Auto 13.9 % (3-14); Neutrophils Absolute Auto 3400 /uL (1500-7000); Neutrophils Percent Auto 63.3 % (50-75); Platelet Count 176 X10^3/uL (150-400); Red Blood Cell Count 4.11 X10^6/uL (4.5-5.9); Red Cell Distribution Width 15.6 % (11.6-14.8); White Blood Cell Count 5.3 X10^3/uL (4.5-11.0)
[2022-07-17 10:36] LABS: BUN Creatinine Ratio 23.6 (6-22); Blood Urea Nitrogen 25 mg/dL (9-20); Calcium 8.4 mg/dL (8.4-10.2); Carbon Dioxide 32 mmol/L (22-32); Chloride 89 mmol/L (98-107); Estimated Glomerular Filt Rate > 60 mL/min (>60); Glucose 107 mg/dL (80-110); HEMOLYSIS 23 (0-50); Magnesium 2.1 mg/dL (1.6-2.3); Potassium 4.2 mmol/L (3.4-5.1); Sodium 129 mmol/L (137-145)
[2022-07-17] MEDS: HYDROCODONE/ACET 5/325 TABLET 1 TAB PO (11:59)
[2022-07-17 14:00] VITALS: BP 116/76; PULSE 89; RESP 17; TEMP 36.2; O2SAT 98
--- NOTE | 2022-07-17 14:27 | P.PN_ITS ---
Subjective Subjective Date Patient Seen: 07/17/22 Time Patient Seen: 16:27 Interval history: Seen in his room today to follow-up on CHF, atrial fibrillation, leg ulcers, and cellulitis. The patient's speech is garbled but his girlfriend is very understandable and accurate about his history. His magnesium is 2.1 with a TSH of 9.8. His sodium has risen from 121 up to 123 and is now 129. CBC is normal. The hypothyroidism was apparently 1st detected just a few weeks ago on June 27. So it is too early to change the dose. He will begin home health wound care nurse visits. His liver function tests were elevated and will be repeated tomorrow. His daughter plans to be available take him home at 2:00 p.m. tomorrow. He has completed 5 days of IV antibiotics for the cellulitis. Exam Vital Signs (past 8 hours): - 07/17/22 09:05 07/17/22 08:00 Temperature 98.3 F Pulse Rate 97 H Respiratory Rate 17 Blood Pressure 107/63 Pulse Oximetry 94 Oxygen Delivery Method Room Air Oxygen Flow Rate 0 Oxygen Delivery Method Room Air Oxygen Flow Rate 0 Narrative Exam Narrative: He is alert and oriented x3 with garbled speech Heart is regular rate and rhythm without murmur Lungs are clear to auscultation bilaterally Extremities have 1+ edema on both ankles There is small superficial ulcers in the backs of both calves There is no evidence of ongoing cellulitis Objective Labs 07/17/22 09:45 07/17/22 09:45 Labs: Laboratory Results - last 24 hr 07/17/22 07/17/22 09:45 09:45 WBC 5.3 RBC 4.11 L Hgb 14.4 Hct 42.4 MCV 103.2 H MCH 35.0 H MCHC 33.9 RDW 15.6 H Plt Count 176 Neut % (Auto) 63.3 Lymph % (Auto) 17.1 L Rush % (Auto) 13.9 Eos % (Auto) 4.6 H Baso % (Auto) 1.1 Neut # (Auto) 3400 Lymph # (Auto) 900 L Rush # (Auto) 700 Eos # (Auto) 200 Baso # (Auto) 100 Sodium 129 L Potassium 4.2 Chloride 89 L Carbon Dioxide 32 BUN 25 H Creatinine 1.06 Estimated GFR > 60 BUN/Creatinine Ratio 23.6 H Glucose 107 Calcium 8.4 Magnesium 2.1 PFSH Medical History Congestive heart failure Hyperlipidemia Paroxysmal atrial fibrillation Surgical History No pertinent past surgical history Family History (Updated 07/13/22 @ 01:50 by KULWANT Joseph) Father No pertinent past medical history Mother No pertinent past medical history Social History household members: none Smoking Status: Never smoker alcohol intake: former Assessment & Plan Assessment & Plan narrative: # Acute on chronic diastolic CHF exacerbation -presents with elevated BNP, lower extremity edema and hepatic congestion -was on Bumex in community but 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 restarted lasix on admission,? at 60mg IV BID, change to oral 20 mg BID in hopes of improving Na but this likely represents hypervolemia so increased back to 60 mg IV furosemide BID, may need additional. -daily weights -repeat magnesium and CMP tomorrow -fluid restriction to continue. # STONE -suspect secondary to hypervolemia, renal vascular congestion -diurese as above -ultrasound shows no hydronephrosis # Hyponatremia with acute metabolic encephalopathy. -suspect secondary to hypervolemia -acutely worsened since last admission likely with reduction in outpatient diuretic. -diuresis as above - follow labs, hyponatremia contributing to confusion -sodium 129 on 07/17, anticipate discharge on 07/18 with sodium continued to rise # Possible left leg cellulitis -elevated procalcitonin, no fevers, mild erythema on back of left leg -plan for 5 day course of antibiotics, on ceftriaxone, transition to oral cephalexin -completed IV ceftriaxone without any evidence of ongoing cellulitis # Atrial fibrillation -rate controlled -continue home dose metoprolol and apixaban # run of V tach, 9 beats, patient did not feel, continue metoprolol, added a calcium channel mikki. # Hypothyroidism -continue synthroid - recently started on medication -TSH 9.8. Too early to increase dose. 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 -could be contributing to STONE, started tamsulosin #insomnia - takes regular dose of lorazepam 1 mg at home, added Trazodone 25 mg as well Dispo: probable discharge home with home health, when sodium and volume status improves. Likely 07/18 at 2:00 p.m. Time Spent With Patient Critical Care time: I spent a total of [] minutes of critical care time on this patient's care today; this time is exclusive of procedural time.
[2022-07-17 20:27] VITALS: BP 108/70; PULSE 93; RESP 18; TEMP 37; O2SAT 96
[2022-07-17] MEDS: ATORVASTATIN 20 MG TABLET 10 MG PO (20:28)
[2022-07-17] MEDS: METOPROLOL ER 50 MG TABLET 100 MG PO (20:28)
[2022-07-17] MEDS: SENNOSIDES 8.6 MG TABLET 17.2 MG PO (20:28)
[2022-07-17] MEDS: TRAZODONE 50 MG TABLET 25 MG PO (20:28)
[2022-07-17] MEDS: LORazepam 1 MG TABLET PO (20:29)
[2022-07-18 04:00] VITALS: BP 108/64; PULSE 108; RESP 16; TEMP 36.8; O2SAT 94
[2022-07-18] MEDS: LEVOTHYROXINE 25 MCG TABLET PO (04:51)
[2022-07-18 06:03] LABS: Add Manual Diff / Slide Review NO; Basophils Absolute Auto 0 /uL (0-100); Basophils Percent Auto 0.6 % (0-2); Eosinophils Absolute Auto 300 /uL (0-450); Eosinophils Percent Auto 4.3 % (2-4); Hematocrit 40.8 % (41-53); Lymphocytes Absolute Auto 800 /uL (1100-4500); Lymphocytes Percent Auto 13.1 % (25-40); Mean Corpuscular HGB Conc 34.3 % (30-36); Mean Corpuscular Hemoglobin 35.5 PG (26-34); Mean Corpuscular Volume 103.7 fL (80-100); Monocytes Absolute Auto 600 /uL (0-900); Monocytes Percent Auto 10.5 % (3-14); Neutrophils Absolute Auto 4300 /uL (1500-7000); Neutrophils Percent Auto 71.5 % (50-75); Platelet Count 151 X10^3/uL (150-400); Red Blood Cell Count 3.93 X10^6/uL (4.5-5.9); Red Cell Distribution Width 15.4 % (11.6-14.8); White Blood Cell Count 5.9 X10^3/uL (4.5-11.0)
[2022-07-18 06:18] LABS: Alanine Aminotransferase 78 IU/L (<50); Alkaline Phosphatase 235 U/L (38-126); Aspartate Aminotransferase 107 IU/L (17-59); BUN Creatinine Ratio 23.3 (6-22); Blood Urea Nitrogen 24 mg/dL (9-20); Calcium 7.9 mg/dL (8.4-10.2); Carbon Dioxide 29 mmol/L (22-32); Chloride 91 mmol/L (98-107); Estimated Glomerular Filt Rate > 60 mL/min (>60); Glucose 100 mg/dL (80-110); HEMOLYSIS < 15 (0-50); Potassium 3.7 mmol/L (3.4-5.1); Sodium 129 mmol/L (137-145)
[2022-07-18 08:00] VITALS: BP 122/62; PULSE 100; RESP 17; TEMP 36.3; O2SAT 98
[2022-07-18] MEDS: TAMSULOSIN 0.4 MG CAPSULE PO (09:14)
[2022-07-18] MEDS: APIXABAN 5 MG TABLET PO (09:15)
[2022-07-18] MEDS: FUROSEMIDE 60 MG in SODIUM CHLORIDE 0.9% 50 ML 112 MG IV (09:27)
[2022-07-18] MEDS: SODIUM CHLORIDE 0.9% FLUSH 10 ML IV (09:37)
--- NOTE | 2022-07-18 13:26 | P.DS_ITS ---
History of Present Illness History of Present Illness Chief complaint: rash on back of both legs, heart issues Narrative: 7-year-old male with newly diagnosed atrial fibrillation presented to the emergency department with a 3-4 day history of pedal edema, and ulcerations on the back of both legs.? He had very sudden onset foot swelling and weeping of his legs to the point it stained his clothing.? He states he does not feel palpitations or chest pain, he denies nausea or vomiting, abdominal pain, dysuria, diarrhea or constipation.? And was recently seen in hospitalized for undiagnosed atrial fibrillation, CHF and was discharged on the 04 of July. Chest x-ray ordered in the ED indicated possible pulmonary scarring versus superimposed pneumonia and a possible right pleural effusion.? He was administered a 1 time dose of IV clindamycin for the lower leg cellulitis.? Currently he is afebrile, his blood pressure is 97/62 heart rate 87 respiratory rate 19 oxygen saturation 96% on room air he weighs 84.5 kg with a BMI of 26.7.? CBC is unremarkable, his INR is 3.4 sodium 120 chloride 79 BUN 35 creatinine 2.13 with an EGFR of 29 glucose 137 lactate is 2.5 calcium 8.2 T bili 2.5 AST 75 ALT 69 alk-phos 144 creatinine kinase is 212 proBNP is 3400 procalcitonin is 0.99 urine is negative for a UTI, urine sodium is less than 5 and his urine creatinine is 105 with a 0.1% chance of prerenal.? COVID-19 PCR is negative. Echo, 06/28/22: The patient was in atrial fibrillation with heart rates between 85-105 bpm during the exam. Normal left ventricle size with ejection fraction 55-60%. Moderately dilated right ventricle with normal right ventricular systolic function. Severe biatrial enlargement. The aortic valve is mildly calcified. Mild to moderate aortic regurgitation. Moderate mitral annular calcification. Moderate mitral regurgitation. The tricuspid annulus is dilated. Severe tricuspid regurgitation. Discharge Providers Provider Date of admission: 07/12/22 22:12 Discharge Date: 07/18/22 Primary care physician: Bessy Castillo MD Discharge provider: Pop Garcia MD Summary Hospital Course Discharge Diagnosis: 1. Acute on chronic diastolic heart faliure 2. Acute kidney injury 3. Hyponatremia 4. Acute metabolic encephalopathy 5. Possible left leg cellulitis vs stasis dermatitis 6. Persistent atrial fibrillation 7. Wide complex tachycardia, likely aberrant conduction 8. Transaminitis PROCEDURE: US ABDOMEN LIMITED ? INDICATIONS:? ABNORMAL LFTS ? TECHNIQUE:? Real-time focused scanning was performed of the abdomen, with image documentation.? ? COMPARISON:? [facility], , MR ABDOMEN WO/W CON, 06/28/2022, 7:08. ? FINDINGS:? The gallbladder is distended and demonstrates moderate diffuse wall thickening and small amount of pericholecystic fluid.? The wall measures at least 6 mm.? There is dependent material seen in the gallbladder, likely sludge.? No visible shadowing calculus.? No sonographic Miranda sign per the technologist. ? The visible portions of the liver and right kidney are normal.? Common hepatic duct is normal caliber at 6 mm. Common bile duct is not seen.? The pancreas and common bile duct were not well seen due to lack of good acoustic window. ? No significant perihepatic fluid. ? IMPRESSION:? ? 1. Distended gallbladder with abnormal wall thickening and pericholecystic fluid.? This is nonspecific and can be seen in the setting of hyperproteinemia, liver disease, acalculous cholecystitis. ? 2. Appearance is not significantly different compared to the MR from 06/28/22. PROCEDURE:? US RENAL COMPLETE ? INDICATIONS:? STONE ? TECHNIQUE:? Real-time scanning was performed of the kidneys and bladder, with image documentation.? ? COMPARISON:? [facility], , US RENAL COMPLETE, 06/29/2022, 7:28. ? FINDINGS:? ? Kidneys:? Kidneys are normal in size.? Right kidney measures 10.9 cm long; left kidney measures 11.1 cm long.? Right renal cortical thickness is 1.4 cm; left renal cortical thickness is 1.6 cm.? Renal cortical echotexture is normal.? No hydronephrosis or nephrolithiasis.? No suspicious solid mass lesions.? ? Bladder:? Pre-void bladder volume is 218 mL.? Post-void residual is 76 mL.? Pre- void images demonstrate no intraluminal masses or stones.? There is irregular wall thickening of the bladder.? On pre-void images, right jet not visualized in the left jet is visualized ureteral jets are noted with color Doppler interrogation.? (Of note, ureteral jets may not be detectable in up to 25% of cases due to insufficient differences in specific gravity between ureteral and bladder urine).? ? Miscellaneous:? No free pelvic fluid.? ? IMPRESSION:? 1. No hydronephrosis. 2. Irregular wall thickening of the urinary bladder, presumably trabeculation from chronic outlet obstruction. Correlate with hematuria.? If positive, consider cystoscopy to exclude mass.? Hospital Course: Pt was admitted with STONE and hyponatremia secondary to volume overload. 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 We reinitiated diuresis with IV Lasix 60 mg bid with clinical improvement. STONE resolved and se rum Na improved from 120 to 1219. Pt's mental status also cleared up. There was question of left leg cellulitis (vs stasis dermatitis) which was treated with 5 days of Rocephin. Pt is sent home on his previous dose of bumetanide when he got discharged from earlier this month. KUB US showed irregular thickening of bladder which could be from BPH although he has normal post-void residual. Status at Discharge Cognitive/behavioral status at discharge: oriented Functional status at discharge: independent ambulation Overall status at discharge: patient is progressing back to baseline Time Spent with Patient Time spent: Greater than 30 minutes Exam Vital Signs (past 8 hours): - 07/18/22 07:00 07/18/22 08:00 Temperature 97.3 F L Pulse Rate 100 H Respiratory Rate 17 Blood Pressure 122/62 Pulse Oximetry 98 Oxygen Delivery Method Room Air Oxygen Flow Rate 0 Oxygen Delivery Method Room Air Oxygen Flow Rate 0 Narrative Exam Narrative: Gen: alert, cooperative, NAD Lungs: clear Ext: 2+ pitting LEs, chronic venous stasis changes Objective Labs 07/18/22 05:37 07/18/22 05:37 Labs: Laboratory Results - last 24 hr 07/18/22 07/18/22 05:37 05:37 WBC 5.9 RBC 3.93 L Hgb 14.0 Hct 40.8 L MCV 103.7 H MCH 35.5 H MCHC 34.3 RDW 15.4 H Plt Count 151 Neut % (Auto) 71.5 Lymph % (Auto) 13.1 L Aiken % (Auto) 10.5 Eos % (Auto) 4.3 H Baso % (Auto) 0.6 Neut # (Auto) 4300 Lymph # (Auto) 800 L Aiken # (Auto) 600 Eos # (Auto) 300 Baso # (Auto) 0 Sodium 129 L Potassium 3.7 Chloride 91 L Carbon Dioxide 29 BUN 24 H Creatinine 1.03 Estimated GFR > 60 BUN/Creatinine Ratio 23.3 H Glucose 100 Calcium 7.9 L Total Bilirubin 2.0 H AST 107 H ALT 78 H Alkaline Phosphatase 235 H Total Protein 6.0 L Albumin 3.0 L Globulin 3.0 Albumin/Globulin Ratio 1.0 PFSH Medical History Congestive heart failure Hyperlipidemia Paroxysmal atrial fibrillation Surgical History No pertinent past surgical history Family History (Updated 07/13/22 @ 01:50 by KULWANT Joseph) Father No pertinent past medical history Mother No pertinent past medical history Social History household members: none Smoking Status: Never smoker alcohol intake: former Discharge Plan Discharge Plan Patient Disposition: Home Provider Discharge Comment: You were treated for exacerbation of heart failure. Check and document weight daily in AM. Take extra bumetanide if weight is up by more than 2 pounds in a day or 4 pounds in a week. You should have repeat blood work in 1 to 2 weeks to recheck kidneys and electrolytes. Discharge orders & Medications Prescriptions: Continued metoprolol succinate 100 mg tablet extended release 24 hr 100 mg PO BEDTIME simvastatin 20 mg tablet 20 mg PO BEDTIME bumetanide 1 mg tablet 1 mg PO BID lorazepam 1 mg tablet 1 mg PO BEDTIME PRN (Reason: Insomnia) Eliquis 5 mg tablet 5 mg PO BID levothyroxine 25 mcg capsule 25 mcg PO DAILY Qty: 30 1RF Follow up/Referrals: Bessy Castillo MD [Primary Care Provider] - Diet/Activity/Treatments Diet: Regular Visit Report/Discharge Packet Instructions: DI for Cellulitis -- Adult, DI for Heart Failure, DI for Hyponatremia Stand Alone Forms: Congestive Heart Failure, Patient Portal/API, Stroke Signs & Symptoms Discharge Data Primary Care Provider: Bessy Castillo
--- NOTE | 2022-07-18 14:02 | PC.NURSE ---
This RN agrees with all the documentation. all question were answered before discharge. IV removed. all belongings returned to patient. daughter able to talk to care management. educated patient on how to care/reduce edema.
--- NOTE | 2022-07-18 15:36 | CM.DPNOTE ---
DC Note Discharge home w/daughter Grecia today; reviewed DCP with patient and dtr Grecia . Both agreeable to return home today w/[facility] services. Dtr Grecia anticipates patient will inevitably have a respite stay at the [facility] on [address] and requests this DAIRY SPECIALIST fax clinical to this facility Placed call to [facility] P [phone] and faxed clinical per patient/family request F [phone] attn: Keren Barakat Updated Mike at [facility] re patient's return home today. There is an RN scheduled to see patient in his home WedJul 22. Updated dtr Grecia and she was pleased and appreciative JW
== END 2022-07-18 13:50 | disposition home or self-care (01) | DRG 602 ==
LOC: ED 21:45 → AC 22:13
PROVIDERS: Emergency Medicine; Family Medicine; Internal Medicine; Neuromusculoskeletal Medicine, Sports Medicine; Admitting Provider Nurse Practitioner Family; Emergency Provider Emergency Medicine; PCP Internal Medicine; Referring Provider Emergency Medicine; Visit Provider Nurse Practitioner Family
DX: L03.116 Cellulitis of left lower limb (principal); G93.41 Metabolic encephalopathy; I50.33 Acute on chronic diastolic (congestive) heart failure; N17.9 Acute kidney failure, unspecified; E87.1 Hypo-osmolality and hyponatremia; N13.8 Other obstructive and reflux uropathy; I48.19 Other persistent atrial fibrillation; I25.10 Atherosclerotic heart disease of native coronary artery without angina pectoris; E03.9 Hypothyroidism, unspecified; G47.00 Insomnia, unspecified; I87.2 Venous insufficiency (chronic) (peripheral); R00.0 Tachycardia, unspecified; R74.01 Elevation of levels of liver transaminase levels; E78.5 Hyperlipidemia, unspecified; Z66 Do not resuscitate; Z79.01 Long term (current) use of anticoagulants; Z20.822 Contact with and (suspected) exposure to COVID-19
CPT/HCPCS: 36415; 71045; 76705; 76770; 80048; 80053; 81001; 82550; 82553; 82570; 83605; 83690; 83735; 83880; 84145; 84300; 84439; 84443; 84481; 84484; 85025; 85610; 85730; 87040; 87635; 93005; 96365; 99284; 99285; C9803; J0696; J1940